=== PATIENT | male | born 1990 | race Caucasian/White ===

== ENCOUNTER 2022-04-18 15:59 | Emergency (ER) | payer OTHER ==
--- OUTSIDE RECORDS SUMMARY | 2022-04-18 16:04 | XMS REPORT | Continuity of Care Document ---
:1990 Author Organization [facility] t Address [address] [place] [address] Dr. T[address] [place] [address] Care Team Providers Name Role Phone Asked, No Pcp Primary Care Physician Unavailable LOURDES GREGORY Attending Clinician Unavailable HUNTER BARBOUR Attending Clinician Unavailable Joseph NUÑEZ, Duglas Walker Attending Clinician [phone] ADRI FONG Attending Clinician Unavailable JUVENAL DAILEY Attending Clinician Unavailable Koudela_A Attending Clinician Unavailable Ngsaryen_Tho Attending Clinician Unavailable CIARA ELIAS Admitting Clinician Unavailable MD DUGLAS RUIZ Admitting Clinician Miranda vailable Koudela_A Admitting Clinician Unavailable Nguyen_Tho Admitting Clinician Unavailable Payers Payer Name Policy Type Policy Number Effective Date Expiration Date S daryl [facility] [id number] 2020 00:00:00 [facility] [id number] 2020 GROUP (PPO) 00:00:00 [facility] [id number] Problems This patient has no known problems. Allergies, Adverse Reactions, Alerts This patient has no known allergies or adverse reactions. Social History Social Habit Start Date Stop Date Quantity Comments Source History of Chews Tobacco [facility] tobacco use Hospital Alcohol intake 2022-01-08 2022-01-08 Current drinker [facility] 00:00:00 00:00:00 of alcohol Hospital (finding) Tobacco use and 2019-10-23 2019-10-23 User of smokeless [facility] exposure 00:00:00 00:00:00 tobacco Hospital Alcohol Comment 2018-02-23 2018-02-23 Beer [facility] 00:00:00 00:00:00 Hospital Sex Ass[birth year] At [birth year] [facility] 00:00:00 00:00:00 Hospital Smoking Status Start Date Stop Date Source Light Tobacco Smoker Joel Martínez Smokes tobacco daily 2019-10-23 00:00:00 [facility] Medications Ordered Filled Start Stop Current Ordering Indication Dosage Frequency Signature Comments Components Source Medication Medication Date Date Medication? Clinician (SIG) Name Name venlafaxine No 75mg QD Take 1 Met hodi XR (Effexor 01-[address] XR) 75 MG 00:00: 04:59 (75 mg Hospi ta 24 hr 00 :00 total) by l capsule mouth daily for 30 days. gabapentin 400mg [id number] Take 1 Method[facility] (Neurontin) 01-[id number] 400 mg 00:00: 04:59 3D (400 mg Hospita capsule 00 :00 total) by l mouth 3 (three) times a day as needed (anxiety) for up to 30 days. QUEtiapine No 100mg QD Take 1 Met hodi (SEROqueL) 01-[address] 100 MG 00:00: 04:59 (100 mg Hospita tablet 00 :00 total) by l mouth nightly for 30 days. OLANZapine Yes 5mg QD Take 5 mg Me thodi (ZYPREXA) 5 12-[address] MG tablet 00:00: nightly. Hosp [facility] 00 l ibuprofen Yes 600mg Q6H Take 1 Metho di (ADVIL,MOTR 9-[address] IN) 600 MG 00:00: (600 mg Hosp [facility] tablet 00 total) by l mouth every 6 (six) hours as needed for mild pain for up to 20 doses. ibuprofen 2018-0 Yes 600mg Q6H Take 1 Meth[facility] di (ADVIL,MOTR 9-[address] [place]) 600 MG 00:00: (600 mg Hosp [facility] tablet 00 total) by l mouth every 6 (six) hours as needed for mild pain for up to 20 doses. tramadol 50 tramadol 50 No tramadol [place] mg tablet mg tablet 50 mg da tablet [facility] clonazepam clonazepam No clonazepam [place] 1 mg tablet 1 mg tablet 1 mg d a tablet [facility] losartan losartan No losartan [place] 100 mg 100 mg 100 mg da tablet tablet tablet [facility] losartan losartan No losartan [place] 100 100 100 da mg-hydrochl mg-hydrochl mg-hydroch Medical orothiazide orothiazide lorothiazi Group 25 mg 25 mg de 25 mg tablet tablet tablet Vital Signs Vital Name Observation Time Observation Value Comments Source BP Diastolic 2021-06-28 00:00:00 79 mm[Hg] [facility] BP Systolic 2021-06-28 00:00:00 137 mm[Hg] [facility] Body Weight 2021-06-28 00:00:00 3575 [oz_av] [facility] Respiratory rate 2022-01-08 15:59:24 18 /min [facility] Oxygen saturation in 2022-01-08 15:59:24 97 /min [facility] Arterial blood by Pulse oximetry Systolic blood 2022-01-08 15:59:24 105 mm[Hg] [facility] pressure Diastolic blood 2022-01-08 15:59:24 64 mm[Hg] [facility] pressure Heart rate 2022-01-08 15:59:24 82 /min [facility] Body temperature 2022-01-08 15:59:24 36.61 Yamilex [facility] Body height 2022-01-08 10:07:00 180.3 cm [facility] Body weight 2022-01-08 10:07:00 99.791 kg [facility] BMI 2022-01-08 10:07:00 30.68 kg/m2 [facility] Procedures Procedure Date / Time Performing Clinician Source Performed URINE DRUGS OF ABUSE 2022-01-08 14:57:00 Duglas Ruiz [facility] SCREEN [facility] COVID-19 QUALITATIVE 2022-01-08 13:36:00 Duglas Ruiz [facility] RT-PCR [facility] AMMONIA LEVEL 2022-01-08 12:20:00 [facility] HC COMPLETE BLD COUNT 2022-01-08 12:04:00 Duglas Ruiz [facility] W/AUTO DIFF [facility] PARTIAL THROMBOPLASTIN 2022-01-08 12:04:00 Duglas Ruiz [facility] TIME (PTT) [facility] PROTHROMBIN TIME WITH 2022-01-08 12:04:00 Duglas Ruiz [facility] INR [facility] COMPREHENSIVE METABOLIC 2022-01-08 12:04:00 Duglas Ruiz [facility] PANEL [facility] ALCOHOL LEVEL, BLOOD 2022-01-08 12:04:00 Duglas Ruiz [facility] ESTIMATED GFR 2022-01-08 12:04:00 [facility] ECG 12-LEAD 2022-01-08 11:59:53 [facility] POC GLUCOSE 2022-01-08 11:53:00 [facility] ECG ED PRELIMINARY 2022-01-08 11:29:43 Duglas Ruiz [facility] INTERPRETATION [facility] Plan of Care Planned Activity Planned Date Details Comments Source Future Scheduled 2022-03-27 Pneumococcal Vaccine: [facility] Test 16:00:51 Pediatrics (0 to 5 Years) and At-Risk Patients (6 to 64 Years) (1 - PCV) [code = Pneumococcal Vaccine: Pediatrics (0 to 5 Years) and At-Risk Patients (6 to 64 Years) (1 - PCV)] Future Scheduled 2022-03-27 Hepatitis C screening [facility] Test 16:00:51 (procedure) [code = 721938923] Future Scheduled 2022-03-27 COVID-19 VACCINE (2 - [facility] Test 16:00:51 Pfizer series) [code = COVID-19 VACCINE (2 - Pfizer series)] Future Scheduled 2022-03-27 INFLUENZA VACCINE [facility] Test 16:00:51 [code = INFLUENZA VACCINE] Diagnostic Test 2021-06-28 SARS CoV 2 RNA [facility] Pending 00:00:00 (COVID-19), QL, Group croze cutter helper-PCR, respiratory specimen [code = SARS CoV 2 RNA (COVID-19), QL, croze cutter helper-PCR, respiratory specimen] Future Scheduled COVID-19 VACCINE (1) Met [facility] Test [code = COVID-19 VACCINE (1)] Future Scheduled Hepatitis C screening [facility] Test (procedure) [code = 254484426] Future Scheduled INFLUENZA VACCINE [facility] Test [code = INFLUENZA VACCINE] Encounters Start End Encounter Admission Attending Care Care Encounter Source Date/Time Date/Time Type Type Clinicians Facility Department ID 2022-01-21 Inpatient [facility] [id number] [facility] 17:23:15 [id number] [place] 2021-12-04 Inpatient 1 COLT, [facility] [id number] H arris 06:54:00 [facility] 2021-12-03 Outpatient [facility] [id number] [place] 11:49:14 [id number] [facility] 2022-01-21 2022-01-21 Outpatient [facility] [id number] [place] 00:00:00 00:00:00 [facility] 2022-01-08 2022-01-08 Emergency Ruiz, 1.2.840.1 [id number] Methodi 05:41:00 13:53:00 Clif 73786.1.1 [facility] 3[facility]430[facility]7 [facility] a [facility] .[id number] l ai .8 2022-01-08 2022-01-08 Emergency RUIZ, [facility] [id number] [place] [address] 00:00:00 00:00:[address] CLIF [address] 2022-01-08 2022-01-08 Travel 1.2.840.1 [id number] Methodi 00:00:00 00:00:00 13943.1.1 350.1.13.43 859 3.430.2.7 0.2.7.3.698 Ho spita .3.887303 084.8 l .8 2021-12-25 2021-12-25 Outpatient [facility] [id number] [place] 15:35:29 16:13:31 [facility] 2021-12-04 2021-12-09 Inpatient [facility] [id number] [place] 06:54:00 15:22:00 [facility] 2021-12-02 2021-12-04 Emergency [facility] [id number] [place] 13:58:00 06:45:00 [facility] 2021-12-02 2021-12-02 Emergency 1 [facility] [id number] [place] 13:58:00 13:58:00 [facility] 2021-07-04 2021-07-04 Outpatient Koudela_A [facility] [id number] [place] 02:37:00 02:37:00 [facility] 2021-06-28 2021-06-28 Outpatient Koudela_A [facility] [id number] [place] 11:34:00 11:34:00 [facility] 2021-06-28 2021-06-28 Outpatient uyen_o [facility] [id number] [place] 09:22:00 09:22:00 [id number] [facility] 2021-06-28 2021-06-28 [facility] [place] - [id number] M [facility] 00:00:00 00:00:00 Discovery Alejandar da PA-C: [address] [facility] [address] [place] [address] , Ph. Results Test Description Test Time Test Comments Results Result Comments Source ECG 12 lead 2022-01-09 03:31:50 Test Item Value Reference Range Interpretation Comme nts Ventricular rate (test code = 253) Atrial rate (test code = 255) MD interval (test code = 266) QRSD interval (test code = 260) QT interval (test code = 264) QTC interval (test code = 265) P axis 1 (test code = 267) QRS axis 1 (test code = 268) T wave axis (test code = 270) EKG impression (test code = 273) Normal sinus rhythm-Normal ECG-In automated comparison with ECG of 23-APR-2018 01:52,-QT [facility] RNA [Presence] in Respiratory specimen by BJ with probe [id number] 13:38:07 Test Item Value Reference Range Interpretation Comments SARS-CoV-2 (COVID-19) RNA Not detected [Presence] in Respiratory specimen by BJ with probe detection (test code = 79518-9) Whether patient is employed in a Unknown healthcare setting (test code = 67195-0) Whether the patient has symptoms Unknown related to condition of interest (test code = 87734-0) Whether the patient was Unknown hospitalized for condition of interest (test code = 33681-6) Whether the patient was admitted Unknown to intensive care unit (ICU) for condition of interest (test code = 47767-2) Whether patient resides in a Unknown congregate care setting (test code = 57718-1) status (test code = Unknown 04940-2) Date and time of symptom onset Unknown (test code = 81771-2) POC [id number] 11:55:00 Test Item Value Reference Range Interpretation Comments POC glucose (test code 101 mg/dL 65-99 H [facility] Name: = 06548-8) Teodora salinas ID: [id number] able: HMW Notified corn cooker Interpretation Abnormal (test code = 93031-0) [id number] 09:26:36 Test Item Value Reference Range Interpretation Comments T pallidum Ab Ser Ql Aggl (test NEGATIVE Negative, Equivocal code = 15255-8) Reagin+T pallidum IgG+IgM NEGATIVE Negative SerPl-Imp (test code = 98042-4) HIV 1+2 Ab+HIV1 p24 Ag SerPl Ql [id number] 08:08:27 Test Item Value Reference Range Interpretation Comments HIV 1+2 Ab+HIV1 p24 Ag SerPl Ql [place] NEGATIVE Negative (test code = 13475-6) SARS-CoV-2 RNA Resp Ql [id number] 16:27:49 Test Item Value Reference Range Interpretation Comments Hospitalized? (test No code = 93898-8) ICU? (test code = No 16615-6) Symptomatic as defined No by CDC? (test code = 27372-9) Employed in Unknown Healthcare? (test code = 47101-2) Resident in a Unknown congregate care setting (including nursing homes, residential care for people with intellectual and developmental disabilities, psychiatric treatment facilities, group homes, board and care homes, homeless chcf, foster care or other): (test code = 01134-5) SARS-CoV-2 RNA Resp Ql NOT DETECTED Not Detected INTER PRETATION: No BJ+probe (test code = detec table levels 51318-7) of SARS-CoV-2 Coronavirus (COVID-19) were present in this patient's sampl e by this test. A no t detected result does not exclud e the possibility of active infectio n with this virus due to other factor s that may affect the results such as a poorly collecte d sample, viral titers below th e limit of detect ion of the assay, a nd the infrequent possibility of inhibitors in t he sample. This re sult should be interpreted in conjunction wit h clinical, radiographic, a nd other laborator y findings and sh ould not be used as the sole indicator of active infectio n with SARS-CoV-2 Coronavirus (COVID-19). COMMENT: This antonietta real-time reverse transcriptase polymerase chain reaction (RT-PCR) test rapidly detects SARS-CoV-2 (COVID-19) virus from nasopharyngeal and nasal swab specimens. In accordance with the FDA's guidance document "Policy for Diagnostic Tests for Coronavirus Disease-2019 during the Public Health Emergency", this test was developed, and its performance characteristics were verified by the [facility] molecular diagnostics laboratory and is authorized for clinical diagnostic use. This laboratory is certified under the Clinical Laboratory Improvement Amendments (CLIA) as qualified to perform high complexity clinical laboratory testing.HIV 1+2 Ab+HIV1 p24 Ag SerPl Ql [id number] 16:25:27 Test Item Value Reference Range Interpretation Comments HIV 1+2 Ab+HIV1 p24 Ag SerPl Ql [place] NEGATIVE Negative (test code = 85462-7)
[2022-04-18 16:55] LABS: Absolute Lymphocytes (CBC) 2.4 K/uL (0.7-4.9); Hematocrit 45.6 % (39.6-49.0); MCV 86.2 fL (80-100); MPV 7.5 fL (7.6-11.3); RBC Red Blood Cell Count 5.29 M/uL (4.33-5.43)
[2022-04-18 17:10] LABS: Troponin High Sensitivity 3.9 pg/mL (<58.9)
--- NOTE | 2022-04-18 17:23 | RAD REPORT ---
EXAM DESCRIPTION: RAD - Chest Single View - 04/18/2022 5:14 pm CLINICAL HISTORY: CHEST PAIN Chest pain. COMPARISON: <Comparisons> FINDINGS: Portable technique limits examination quality. The lungs are grossly clear. The heart is normal in size. No displaced fractures. IMPRESSION: No acute intrathoracic process suspected.
--- NOTE | 2022-04-18 17:48 | ER ---
Nurse's Notes [facility] Name: Johann Lopez Age: 31 yrs Sex: Male : 1990 Arrival Date: 04/18/2022 Time: 16:02 Bed 11 Private MD: Diagnosis: Chest pain, unspecified Presentation: 04/18 16:18 Chief complaint: Patient states: SOB \\T\\ Chest pain - 3 days. "At night when I wake up my iw chest gets tight.". Coronavirus screen: At this time, the client does not indicate any symptoms associated with coronavirus-19. Ebola Screen: No symptoms or risks identified at this time. Initial Sepsis Screen: Does the patient meet any 2 criteria? No. Patient's initial sepsis screen is negative. Does the patient have a suspected source of infection? No. Patient's initial sepsis screen is negative. Risk Assessment: Do you want to hurt yourself or someone else? Patient reports no desire to harm self or others. Onset of symptoms was April 18, 2022 at 16:19. 16:18 Method Of Arrival: Ambulatory iw 16:18 Acuity: NEW 3 iw Triage Assessment: 16:19 General: Appears in no apparent distress. comfortable, Behavior is cooperative, iw anxious. Pain: Complains of pain in chest Pain does not radiate. Pain currently is 7 out of 10 on a pain scale. Quality of pain is described as pressure, sharp, shooting, Pain began suddenly. EENT: No signs and/or symptoms were reported regarding the EENT system. Neuro: Level of Consciousness is awake, alert, obeys commands, Oriented to person, place, time, situation. Cardiovascular: Capillary refill < 3 seconds Patient's skin is warm and dry. Cardiovascular: Reports chest pain. Respiratory: Airway is patent Respiratory effort is even, unlabored. GI: Abdomen is round non-distended. : No signs and/or symptoms were reported regarding the genitourinary system. Derm: No signs and/or symptoms reported regarding the dermatologic system. Musculoskeletal: No signs and/or symptoms reported regarding the musculoskeletal system. Historical: - Allergies: 16:19 No Known Allergies; iw - Home Meds: 16:19 None [Active]; iw - PMHx: 16:19 None; iw - PSHx: 16:19 None; iw - Immunization history:: Adult Immunizations up to date, Client reports receiving the 1st dose of the Covid vaccine. - Social history:: Smoking status: Patient reports the use of cigarette tobacco products, smokes one-half pack cigarettes per day, Patient/guardian denies using alcohol. Screenin:50 Abuse screen: Denies threats or abuse. Denies injuries from another. Nutritional eh3 screening: No deficits noted. Tuberculosis screening: No symptoms or risk factors identified. Fall Risk None identified. Assessment: 17:50 General: Appears in no apparent distress. comfortable, Behavior is cooperative, eh3 appropriate for age, anxious. Pain: Complains of pain in anterior aspect of left shoulder Pain does not radiate. Pain currently is 3 out of 10 on a pain scale. Quality of pain is described as sharp, Pain began 2-3 days ago. Is intermittent, Alleviated by nothing. Neuro: Level of Consciousness is awake, alert, obeys commands, Oriented to person, place, time, situation. Cardiovascular: Capillary refill < 3 seconds Patient's skin is warm and dry. Respiratory: Airway is patent Respiratory effort is even, unlabored. Vital Signs: 16:18 BP 135 / 95; Pulse 91; Resp 18; Temp 98.6(O); Pulse Ox 96% on R/A; Weight 104.33 kg; iw Height 5 ft. 1 in. (154.94 cm); Pain 7/10; 17:50 BP 139 / 93; Pulse 84; Resp 16; Pulse Ox 99% on R/A; eh3 16:18 Body Mass Index 43.46 (104.33 kg, 154.94 cm) iw ED Course: 16:02 Patient arrived in ED. dt4 16:19 Triage completed. iw 16:19 Arm band placed on right wrist. iw 16:21 Beatris Mendez FNP-C is PHCP. kb 16:21 Roland Prescott MD is Attending Physician. kb 16:41 Initial lab(s) drawn, by me, sent to lab. Inserted saline lock: 20 gauge in right dh3 forearm, using aseptic technique. Blood collected. 17:42 Luanne Dubon, MISHA is Primary Nurse. eh3 17:50 Patient has correct armband on for positive identification. Bed in low position. Call 3 light in reach. Side rails up X2. Client placed on continuous cardiac and pulse oximetry monitoring. NIBP monitoring applied. 17:50 No provider procedures requiring assistance completed. Patient maintains SpO2 eh3 saturation greater than 95% on room air. 18:04 IV discontinued, intact, bleeding controlled, No redness/swelling at site. Pressure iw dressing applied. 18:19 RAD In Process Unspecified. EDMS Administered Medications: No medications were administered Medication: 17:50 VIS not applicable for this client. eh3 Outcome: 17:47 Discharge ordered by . tea 18:04 Discharged to home ambulatory. iw 18:04 Condition: good 18:04 Discharge instructions given to patient, Instructed on discharge instructions, follow up and referral plans. Demonstrated understanding of instructions, follow-up care. 18:04 Patient left the ED. iw Signatures: Dispatcher [employer] EDBeatris Gonzalez, WEATHER TEACHER-C WEATHER TEACHER-Nora Merrill, RN RN Tova Dias 3 Luanne Dubon RN RN 3 Abby Maldonado dt4 Corrections: (The following items were deleted from the chart) 17:51 17:49 BASIC METABOLIC PANEL+C.LAB.BRZ drawn and sent. eh3 EDMS 17:51 17:49 CBC+H.LAB.BRZ drawn and sent. eh3 EDMS
--- NOTE | 2022-04-18 17:48 | EDPHYS ---
Physician Documentation [facility] Name: Johann Lopez Age: 31 yrs Sex: Male : 1990 Arrival Date: 04/18/2022 Time: 16:02 Bed 11 Private MD: ED Physician Roland Prescott HPI: 04/18 17:44 This 31 yrs old Male presents to ER via Ambulatory with complaints of Chest Pain, kb Shortness Of Breath. 17:44 The patient or guardian reports chest pain that is located primarily in the anterior kb chest wall, left. The pain does not radiate. Associated signs and symptoms: Pertinent positives: shortness of breath, Pertinent negatives: abdominal pain, cough, diaphoresis, dizziness, headache, lower extremity pain, lower extremity swelling, lightheadedness, nausea, near syncope, palpitations, recent travel, syncope, vomiting. The chest pain is described as sharp. Duration: The patient or guardian reports multiple episodes, that are intermittent, with no pattern. Modifying factors: The symptoms are alleviated by nothing. the symptoms are aggravated by nothing. Severity of pain: At its worst the pain was moderate in the emergency department the pain has improved. The patient has not experienced similar symptoms in the past. The patient has not recently seen a physician. Pt reports intermittent chest pain for one week. States he gets some shortness of breath when pain is present. Pain has no pattern. No cardiac history. . Historical: - Allergies: 16:19 No Known Allergies; iw - Home Meds: 16:19 None [Active]; iw - PMHx: 16:19 None; iw - PSHx: 16:19 None; iw - Immunization history:: Adult Immunizations up to date, Client reports receiving the 1st dose of the Covid vaccine. - Social history:: Smoking status: Patient reports the use of cigarette tobacco products, smokes one-half pack cigarettes per day, Patient/guardian denies using alcohol. ROS: 17:44 Constitutional: Negative for fever, chills, and weight loss. kb 17:44 Cardiovascular: Positive for chest pain, Negative for edema, orthopnea, palpitations, paroxysmal nocturnal dyspnea. 17:44 Respiratory: Positive for shortness of breath, Negative for cough, dyspnea on exertion, hemoptysis, orthopnea, pleurisy, sputum production, wheezing. 17:44 All other systems are negative. Exam: 16:28 Constitutional: This is a well developed, well nourished patient who is awake, alert, kb and in no acute distress. Head/Face: Normocephalic, atraumatic. ENT: Moist Mucous membranes Cardiovascular: Regular rate and rhythm with a normal S1 and S2. No gallops, murmurs, or rubs. No pulse deficits. Respiratory: Respirations even and unlabored. No increased work of breathing. Talking in full sentences Abdomen/GI: Soft, non-tender. No distention Skin: Warm, dry with normal turgor. Normal color. MS/ Extremity: Pulses equal, no cyanosis. Neurovascular intact. Full, normal range of motion. Neuro: Awake and alert, GCS 15, oriented to person, place, time, and situation. Moves all extremities. Normal gait. Psych: Awake, alert, with orientation to person, place and time. Behavior, mood, and affect are within normal limits. 16:28 ECG was reviewed by the Attending Physician. Vital Signs: 16:18 BP 135 / 95; Pulse 91; Resp 18; Temp 98.6(O); Pulse Ox 96% on R/A; Weight 104.33 kg; iw Height 5 ft. 1 in. (154.94 cm); Pain 7/10; 17:50 BP 139 / 93; Pulse 84; Resp 16; Pulse Ox 99% on R/A; eh3 16:18 Body Mass Index 43.46 (104.33 kg, 154.94 cm) iw MDM: 16:21 Patient medically screened. kb 17:43 Data reviewed: vital signs, nurses notes. Data interpreted: Pulse oximetry: on room air kb is 96 %. Interpretation: normal. Counseling: I had a detailed discussion with the patient and/or guardian regarding: the historical points, exam findings, and any diagnostic results supporting the discharge/admit diagnosis, lab results, radiology results, the need for outpatient follow up, a family practitioner, to return to the emergency department if symptoms worsen or persist or if there are any questions or concerns that arise at home. ED course: HEART score 0. 04/18 16:27 Order name: D-Dimer kb 04/18 17:03 Order name: CBC with Automated Diff; Complete Time: 17:03 EDMS 04/18 17:10 Order name: Basic Metabolic Panel EDSC 04/18 16:21 Order name: XRAY Chest (1 view) 04/18 16:21 Order name: EKG; Complete Time: 16:22 04/18 16:21 Order name: Cardiac monitoring; Complete Time: 17:49 04/18 16:21 Order name: EKG - Nurse/Tech; Complete Time: 16:21 04/18 16:21 Order name: IV Saline Lock; Complete Time: 16:56 04/18 17:10 Order name: Troponin High Sensitivity [facility] 04/18 17:25 Order name: RAD [facility] 04/18 17:27 Order name: D-Dimer [facility] 04/18 16:21 Order name: Labs collected and sent; Complete Time: 16:56 04/18 16:21 Order name: O2 Per Protocol; Complete Time: 16:57 04/18 16:21 Order name: O2 Sat Monitoring; Complete Time: 16:57 iw EC:28 Rate is 82 beats/min. Rhythm is regular. QRS [place] is Normal. ND interval is normal at kb 150 msec. QRS interval is normal at 82 msec. QT interval is normal at 427 msec. Administered Medications: No medications were administered Disposition: 18:55 Co-signature as Attending Physician, Roland Prescott MD. rn Disposition Summary: 04/18/22 17:47 Discharge Ordered Location: Home kb Condition: Stable kb Diagnosis - Chest pain, unspecified kb Followup: kb - With: Emergency Department - When: As needed - Reason: Worsening of condition Followup: kb - With: Private Physician - When: 2 - 3 days - Reason: Recheck today's complaints, Continuance of care, Re-evaluation by your physician Discharge Instructions: - Discharge Summary Sheet kb - Nonspecific Chest Pain, Adult, Lhtv-iw-Xopd kb Forms: - Medication Reconciliation Form kb - Thank You Letter kb - Antibiotic Education kb - Prescription Opioid Use kb Signatures: Dispatcher [employer] [facility] Beatris Mendez, CLASSROOM MONITOR-C CLASSROOM MONITOR-Ckb Nora Brito, RN RN Roland Prescott MD MD state's attorney: (The following items were deleted from the chart) 17:51 16:22 BASIC METABOLIC PANEL+C.LAB.BRZ ordered. EDSC EDMS 17:51 16:22 CBC+H.LAB.BRZ ordered. EDSC EDMS 17:51 16:22 Troponin High Sensitivity+C.LAB.BRZ ordered. EDMS EDMS
[2022-04-20 07:19] VITALS: TEMP 98.6
[2022-04-20 07:21] VITALS: BP 139/93; O2SAT 99
--- NOTE | 2022-04-21 14:13 | EKG ---
Test Date: 2022-04-18 Test Time: 16:19:26 Technical Programs Manager: WESLEY MEASUREMENT RESULTS: Intervals: Rate: 82 NC: 150 QRSD: 82 QT: 366 QTc: 427 Avery: P: 61 NC: 150 QRS: 53 T: 34 INTERPRETIVE STATEMENTS: Normal sinus rhythm Normal ECG No previous ECG available for comparison Electronically Signed On 04-21-22 14:09:53 CDT by Felipe Gonzalez
== END 2022-04-18 18:04 | disposition home or self-care (01) ==
LOC: ER 15:59
DX: R07.89 Other chest pain (principal)
CPT/HCPCS: 36415; 71045; 80048; 84484; 85025; 85379; 93005; 99284

== ENCOUNTER 2022-05-13 23:54 | Emergency (ER) | payer OTHER, SELFPAY ==
--- OUTSIDE RECORDS SUMMARY | 2022-05-13 23:57 | XMS REPORT | Continuity of Care Document ---
:1990 Author Organization [facility] t Address [address] [place] [address] Care Team Providers Name Role Phone Asked, No Pcp Primary Care Physician Unavailable LOURDES GREGORY Attending Clinician Unavailable FANNIE LAKHANI Attending Clinician Unavailable HUNTER BARBOUR Attending Clinician Unavailable Joseph NUÑEZ, Duglas Walker Attending Clinician [phone] ADRI FONG Attending Clinician Unavailable JUVENAL DAILEY Attending Clinician Unavailable Koudela_A Attending Clinician Unavailable Nguyen_Tho Attending Clinician Unavailable CIARA ELIAS Admitting Clinician Unavailable MD DUGLAS RUIZ Admitting Clinician Miranda vailable Koudela_A Admitting Clinician Unavailable Nguyen_Tho Admitting Clinician Unavailable Payers Payer Name Policy Type Policy Number Effective Date Expiration Date S ource [facility] [id number] 2020 00:00:00 [facility] [id number] 2020 GROUP (PPO) 00:00:00 [facility] [id number] [facility] [id number] 2011 00:00:00 Problems This patient has no known problems. Allergies, Adverse Reactions, Alerts This patient has no known allergies or adverse reactions. Social History Social Habit Start Date Stop Date Quantity Comments Source History of Chews Tobacco Muslim tobacco use Hospital Alcohol intake 2022-01-08 2022-01-08 Current drinker [facility] 00:00:00 00:00:00 of alcohol Hospital (finding) Tobacco use and 2019-10-23 2019-10-23 User of smokeless [facility] exposure 00:00:00 00:00:00 tobacco Hospital Alcohol Comment 2018-02-23 2018-02-23 Beer Muslim 00:00:00 00:00:00 Hospital Sex Ass[birth year] At [birth year] Muslim 00:00:00 00:00:00 Hospital Smoking Status Start Date Stop Date Source Light Tobacco Smoker [facility] Smokes tobacco daily 2019-10-23 00:00:00 [facility] Medications Ordered Filled Start Stop Current Ordering Indication Dosage Frequency Signature Comments Components Source Medication Medication Date Date Medication? Clinician (SIG) Name Name venlafaxine No 75mg QD Take 1 [facility] XR (Effexor 01-[address] XR) 75 MG 00:00: 04:59 (75 mg Hospi ta 24 hr 00 :00 total) by l capsule mouth daily for 30 days. gabapentin No 400mg Q.[id number] Take 1 [facility] (Neurontin) 01-[id number] 400 mg 00:00: 04:59 3D (400 mg Hospita capsule 00 :00 total) by l mouth 3 (three) times a day as needed (anxiety) for up to 30 days. QUEtiapine No 100mg QD Take 1 [facility] (SEROqueL) 01-[address] 100 MG 00:00: 04:59 (100 mg Hospita tablet 00 :00 total) by l mouth nightly for 30 days. venlafaxine No 75mg QD Take 1 [facility] XR (Effexor 01-[address] XR) 75 MG 00:00: 04:59 (75 mg Hospi ta 24 hr 00 :00 total) by l capsule mouth daily for 30 days. gabapentin 2021- No 400mg Q.[id number] Take 1 [facility] (Neurontin) 01-[id number] 400 mg 00:00: 04:59 3D (400 mg Hospita capsule 00 :00 total) by l mouth 3 (three) times a day as needed (anxiety) for up to 30 days. QUEtiapine 2021- No 100mg QD Take 1 Met [facility] (SEROqueL) 01-[address] 100 MG 00:00: 04:59 (100 mg Hospita tablet 00 :00 total) by l mouth nightly for 30 days. OLANZapine Yes 5mg QD Take 5 mg [facility] (ZYPREXA) 5 6-[address] MG tablet 00:00: nightly. Hosp catracho 00 l OLANZapine 0 Yes 5mg QD Take 5 mg [facility] (ZYPREXA) 5 6-[address] MG tablet 00:00: nightly. Hosp catracho 00 l ibuprofen Yes 600mg Q6H Take 1 Metho di (ADVIL,MOTR 9-[address] IN) 600 MG 00:00: (600 mg Hosp catracho tablet 00 total) by l mouth every 6 (six) hours as needed for mild pain for up to 20 doses. ibuprofen Yes 600mg Q6H Take 1 [facility]o di (ADVIL,MOTR 9-[address] IN) 600 MG 00:00: (600 mg Hosp catracho tablet 00 total) by l mouth every 6 (six) hours as needed for mild pain for up to 20 doses. ibuprofen 0 Yes 600mg Q6H Take 1 Metho di [...] Source BP Diastolic 2021-06-28 00:00:00 79 mm[Hg] [facility] BP Systolic 2021-06-28 00:00:00 137 mm[Hg] [facility] Body Weight 2021-06-28 00:00:00 3575 [oz_av] [facility] Systolic blood 2022-01-08 15:59:24 105 mm[Hg] [facility] pressure Diastolic blood 2022-01-08 15:59:24 64 mm[Hg] [facility] pressure Heart rate 2022-01-08 15:59:24 82 /min [facility] Body temperature 2022-01-08 15:59:24 36.61 [facility] Respiratory rate 2022-01-08 15:59:24 18 /min [facility] Oxygen saturation in 2022-01-08 15:59:24 97 /min [facility] Arterial blood by Pulse oximetry Body height 2022-01-08 10:07:00 180.3 cm [facility] Body weight 2022-01-08 10:07:00 99.791 kg [facility] BMI 2022-01-08 10:07:00 30.68 kg/m2 [facility] Procedures Procedure Date / Time Performing Clinician Source Performed URINE DRUGS OF ABUSE 2022-01-08 14:57:00 Duglas Ruzi [facility] SCREEN [facility] COVID-19 QUALITATIVE 2022-01-08 13:36:00 Duglas Ruiz [facility] RT-PCR [facility] AMMONIA LEVEL 2022-01-08 12:20:00 Duglas Ruiz [facility] HC COMPLETE BLD COUNT 2022-01-08 12:04:00 Duglas Ruiz [facility] W/AUTO DIFF [facility] PARTIAL THROMBOPLASTIN 2022-01-08 12:04:00 Duglas Ruiz [facility] TIME (PTT) [facility] PROTHROMBIN TIME WITH 2022-01-08 12:04:00 Duglas Ruiz [facility] INR [facility] COMPREHENSIVE METABOLIC 2022-01-08 12:04:00 Duglas Ruiz [facility] PANEL [facility] ALCOHOL LEVEL, BLOOD 2022-01-08 12:04:00 Duglas Ruiz [facility] ESTIMATED GFR 2022-01-08 12:04:00 Duglas Ruiz [facility] ECG 12-LEAD 2022-01-08 11:59:53 Duglas Ruiz [facility] POC GLUCOSE 2022-01-08 11:53:00 Duglas Ruiz [facility] ECG ED PRELIMINARY 2022-01-08 11:29:43 Duglas Ruiz [facility] INTERPRETATION [facility] Plan of Care Planned Activity Planned Date Details Comments Source Future Scheduled 2022-03-27 Pneumococcal Vaccine: [facility] Test 16:00:51 Pediatrics (0 to 5 Years) and At-Risk Patients (6 to 64 Years) (1 - PCV) [code = Pneumococcal Vaccine: Pediatrics (0 to 5 Years) and At-Risk Patients (6 to 64 Years) (1 - PCV)] Future Scheduled 2022-03-27 Hepatitis C screening [facility] Test 16:00:51 (procedure) [code = 258683712] Future Scheduled 2022-03-27 COVID-19 VACCINE (2 - [facility] Test 16:00:51 Pfizer series) [code = COVID-19 VACCINE (2 - Pfizer series)] Future Scheduled 2022-03-27 INFLUENZA VACCINE [facility] Test 16:00:51 [code = INFLUENZA VACCINE] Future Scheduled 2022-03-27 Pneumococcal Vaccine: [facility] Test 16:00:51 Pediatrics (0 to 5 Years) and At-Risk Patients (6 to 64 Years) (1 - PCV) [code = Pneumococcal Vaccine: Pediatrics (0 to 5 Years) and At-Risk Patients (6 to 64 Years) (1 - PCV)] Future Scheduled 2022-03-27 Hepatitis C screening [facility] Test 16:00:51 (procedure) [code = 942226145] Future Scheduled 2022-03-27 COVID-19 VACCINE (2 - [facility] Test 16:00:51 Pfizer series) [code = COVID-19 VACCINE (2 - Pfizer series)] Future Scheduled 2022-03-27 INFLUENZA VACCINE [facility] Test 16:00:51 [code = INFLUENZA VACCINE] Diagnostic Test 2021-06-28 SARS CoV 2 [facility] Pending 00:00:00 (COVID-19), QL, Group health aid-PCR, respiratory specimen [code = SARS CoV 2 RNA (COVID-19), QL, health aid-PCR, respiratory specimen] Future Scheduled COVID-19 VACCINE (1) Met [facility] Test [code = COVID-19 VACCINE (1)] Future Scheduled Hepatitis C screening [facility] Test (procedure) [code = 066478377] Future Scheduled INFLUENZA VACCINE Method is Hospital Test [code = INFLUENZA VACCINE] Encounters Start End Encounter Admission Attending Care Care Encounter Source Date/Time Date/Time Type Type Clinicians Facility Department ID 2022-01-21 Inpatient [facility] [id number] [facility] 17:23:15 [id number] [place] 2021-12-04 Inpatient 1 COLT [facility] [id number] H arris 06:54:00 [facility] 2021-12-03 Outpatient [facility] [id number] [place] 11:49:14 [id number] [facility] 2022-04-21 2022-04-21 Outpatient KAR, [facility] [id number] [place] 09:54:46 23:59:00 [facility] 2022-04-18 2022-04-18 Outpatient Rubin [facility] [id number] [place] 15:46:00 15:46:00 Michelle [id number] Med ical 3 [place] 2022-01-21 2022-01-21 Outpatient [facility] [id number] [place] 00:00:00 00:00:00 [facility] 2022-01-08 2022-01-08 Emergency Ruiz, 1.2.840.1 [id number] [facility] 05:41:00 13:53:[address] 3.430.2.7 Hospit a Dasharathbh .3.074850 l ai .8 2022-01-08 2022-01-08 Emergency Ruiz, 1.2.840.1 [id number] [facility] 05:41:00 13:53:[address] 3.430.2.7 Hospit a Dasharathbh .3.029059 l ai .8 2022-01-08 2022-01-08 Travel 1.2.840.1 1.2.833.448 [id number] [facility] 00:00:00 00:00:[address] 3.430.2.7 0.2.7.3.698 Ho spita .3.902803 084.8 l .8 2022-01-08 2022-01-08 Travel 1.2.840.1 1.2.103.473 [id number] [facility] 00:00:00 00:00:[address] 3.430.2.7 0.2.7.3.698 Ho spita .3.220856 084.8 l .8 2021-12-25 2021-12-25 Outpatient [facility] [id number] [place] 15:35:29 16:13:31 [facility] 2021-12-04 2021-12-09 Inpatient [facility] [id number] [place] 06:54:00 15:22:00 [facility] 2021-12-02 2021-12-04 Emergency [facility] [id number] [place] 13:58:00 06:45:00 [facility] 2021-12-02 2021-12-02 Emergency 1 [facility] [id number] [place] 13:58:00 13:58:00 [facility] 2021-07-04 2021-07-04 Outpatient Koudela_A [facility] [id number] -[id number] [place] 02:37:00 02:37:00 1209 [facility] 2021-06-28 2021-06-28 Outpatient Koudela_A [facility] [id number] [place] 11:34:00 11:34:00 1203 da [facility] 2021-06-28 2021-06-28 Outpatient Radha SUTHERLAND [id number] [place] 09:22:00 09:22:00 [id number] da [facility] 2021-06-28 2021-06-28 Suly [facility] [place] - [id number] M at[place]or 00:00:00 00:00:00 Discovery Alejandra da PA-C: [address] [facility] [address] - [address], [facility] [place] [address] , Ph. 2011-09-26 2011-09-26 Emergency [facility] [id number] [place] 15:23:59 15:23:59 Health Results Test Description Test Time Test Comments Results Result Comments Source ECG 12 lead 2022-01-09 03:31:50 Test Item Value Reference Range Interpretation Comme nts Ventricular rate (test code = 253) Atrial rate (test code = 255) [place] interval (test code = 266) QRSD interval (test code = 260) QT interval (test code = 264) QTC interval (test code = 265) P axis 1 (test code = 267) QRS axis 1 (test code = 268) T wave axis (test code = 270) EKG impression (test code = 273) Normal sinus rhythm-Normal ECG-In automated comparison with ECG of 23-APR-2018 01:52,-QT has lengthened- [facility] [id number] 03:31:50 Test Item Value Reference Range Interpretation Comments Ventricular rate (test code = 253) Atrial rate (test code = 255) W[place] interval (test code = 266) QRSD interval (test code = 260) QT interval (test code = 264) QTC interval (test code = 265) P axis 1 (test code = 267) QRS axis 1 (test code = 268) T wave axis (test code = 270) EKG impression (test Normal sinus code = 273) rhythm-Normal ECG-In automated comparison with ECG of 23-APR-2018 01:52,-QT has lengthened-Electronica lly Signed By Mattie Hall MD ([id number]) on 01/08/2022 10:31:22 [facility] [Presence] in Respiratory specimen by BJ with probe [id number] 13:38:07 Test Item Value Reference Range Interpretation Comments SARS-CoV-2 (COVID-19) RNA Not detected [Presence] in Respiratory specimen by BJ with probe detection (test code = 69784-5) Whether patient is employed in a Unknown healthcare setting (test code = 63532-6) Whether the patient has symptoms Unknown related to condition of interest (test code = 58275-7) Whether the patient was Unknown hospitalized for condition of interest (test code = 80783-7) Whether the patient was admitted Unknown to intensive care unit (ICU) for condition of interest (test code = 56347-3) Whether patient resides in a Unknown congregate care setting (test code = 36678-0) status (test code = Unknown 96630-3) Date and time of symptom onset Unknown (test code = 67042-4) [facility] [id number] 11:55:00 Test Item Value Reference Range Interpretation Comments POC glucose (test code 101 mg/dL 65-99 H Opera tor Name: = 50343-1) Teodora salinas ID: [id number] able: HMW 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 garment 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 Interpretation Abnormal (test code = 50472-8) [facility] [id number] 11:55:00 Test Item Value Reference Range Interpretation Comments POC glucose (test code 101 mg/dL 65-99 H Opera tor Name: = 97077-2) Teodora salinas ID: [id number] able: HMW Notified garment 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 Interpretation Abnormal (test code = 27372-5) [facility] [id number] 09:26:36 Test Item Value Reference Range Interpretation Comments T pallidum Ab Ser Ql Aggl (test NEGATIVE Negative, Equivocal code = 05025-2) Reagin+T pallidum IgG+IgM NEGATIVE Negative SerPl-Imp (test code = 84787-5) HHSHIV 1+2 Ab+HIV1 p24 Ag SerPl Ql [id number] 08:08:27 Test Item Value Reference Range Interpretation Comments HIV 1+2 Ab+HIV1 p24 Ag SerPl Ql [place] NEGATIVE Negative (test code = 20301-8) [id number]-BpI-2 RNA Resp Ql [id number] 16:27:49 Test Item Value Reference Range Interpretation Comments Hospitalized? (test No code = 06135-4) ICU? (test code = No 08493-1) Symptomatic as defined No by CDC? (test code = 83914-0) Employed in Unknown Healthcare? (test code = 73433-8) Resident in a Unknown congregate care setting (including nursing homes, residential care for people with intellectual and developmental disabilities, psychiatric treatment facilities, group homes, board and care homes, homeless custodial, foster care or other): (test code = 04674-3) SARS-CoV-2 RNA Resp Ql NOT DETECTED Not Detected INTER PRETATION: No BJ+probe (test code = detec table levels 35325-4) of SARS-CoV-2 Coronavirus (COVID-19) were present in [...] its performance characteristics were verified by the [facility] [place] molecular diagnostics laboratory and is authorized for clinical diagnostic use. This laboratory is certified under the Clinical Laboratory Improvement Amendments (CLIA) as qualified to perform high complexity clinical laboratory testing.HHSHIV 1+2 Ab+HIV1 p24 Ag SerPl Ql [id number] 16:25:27 Test Item Value Reference Range Interpretation Comments HIV 1+2 Ab+HIV1 p24 Ag SerPl Ql [place] NEGATIVE Negative (test code = 85485-3) [facility]HS
[2022-05-14 00:58] LABS: Absolute Lymphocytes (CBC) 3.7 K/uL (0.7-4.9); Hematocrit 47.3 % (39.6-49.0); Lymphocytes % 35.4 % (15.3-44.8); MCV 89.9 fL (80-100); MPV 7.8 fL (7.6-11.3); RBC Red Blood Cell Count 5.27 M/uL (4.33-5.43)
[2022-05-14 01:17] LABS: Potassium 3.7 mmol/L (3.5-5.1); Troponin High Sensitivity 4.6 pg/mL (<58.9)
--- NOTE | 2022-05-14 01:44 | EDPHYS ---
Physician Documentation [facility] Name: Johann Lopez Age: 31 yrs Sex: Male : 1990 Arrival Date: 05/13/2022 Time: 23:59 Bed 15 Private MD: ED Physician Roland Prescott HPI: 05/14 00:13 This 31 yrs old Male presents to ER via Unassigned with complaints of High Blood rn Pressure, Chest Pain. 00:13 The patient or guardian reports chest pain that is located primarily in the chest rn diffusely. The pain does not radiate. Associated signs and symptoms: Pertinent positives: palpitations, shortness of breath, Pertinent negatives: abdominal pain, diaphoresis, syncope, vomiting. The chest pain is described as sharp, stabbing. Duration: The patient or guardian reports multiple episodes, that are intermittent. Modifying factors: The symptoms are alleviated by nothing. the symptoms are aggravated by emotionally stressful situations, anxiety and not sleeping. Severity of pain: At its worst the pain was mild in the emergency department the pain is unchanged. The patient has experienced similar episodes in the past. The patient has not recently seen a physician. Pt reports 2 weeks of intermittent chest pain, sob, worse at night, not sleeping well at night, having stress and anxiety. No fever. No abd pain. No vomiting. No hemoptysis. + smoker. . Historical: - Allergies: 00:18 No Known Allergies; aa9 - Home Meds: 00:18 None [Active]; aa9 - PMHx: 00:18 Hypertensive disorder; aa9 - PSHx: 00:18 None; aa9 - Immunization history:: Client reports receiving the 1st dose of the Covid vaccine. - Social history:: Smoking status: Patient reports the use of cigarette tobacco products, smokes one-half pack cigarettes per day. - Family history:: not pertinent. - Hospitalizations: : No recent hospitalization is reported. ROS: 00:13 Constitutional: Negative for fever, chills, and weight loss, Eyes: Negative for injury, rn pain, redness, and discharge, Neck: Negative for injury, pain, and swelling, Cardiovascular: Negative for edema Respiratory: Negative for cough, wheezing Abdomen/GI: Negative for abdominal pain, nausea, vomiting, diarrhea, and constipation, MS/Extremity: Negative for injury and deformity, Skin: Negative for injury, rash, and discoloration, Neuro: Negative for headache, weakness, numbness, tingling, and seizure. Exam: 00:13 Constitutional: This is a well developed, well nourished patient who is awake, alert, rn appears anxious Head/Face: Normocephalic, atraumatic. Eyes: Periorbital areas with no swelling, redness, or edema. Cardiovascular: Regular rate and rhythm. No pulse deficits. Respiratory: No increased work of breathing, no retractions or nasal flaring. Abdomen/GI: Soft, non-tender Skin: Warm, dry MS/ Extremity: Pulses equal, no cyanosis. Neuro: Awake and alert, GCS 15 00:17 ECG was reviewed by the Attending Physician. rn Vital Signs: 00:15 BP 122 / 73; Pulse 77; Resp 16 S; Pulse Ox 98% on R/A; aa9 00:17 BP 157 / 96; Pulse 90; Resp 17 S; Temp 98.8(O); Pulse Ox 99% on R/A; Weight 104.33 kg aa9 (R); Height 5 ft. 11 in. (180.34 cm) (R); Pain 0/10; 00:30 BP 122 / 76; Pulse 73; Resp 17 S; Pulse Ox 98% on R/A; aa9 00:45 BP 131 / 78; Pulse 80; Resp 16 S; Pulse Ox 98% on R/A; aa9 01:15 BP 119 / 67; Pulse 71; Resp 16 S; Pulse Ox 98% on R/A; aa9 01:45 BP 108 / 64; Pulse 69; Resp 16; Pulse Ox 99% on R/A; aa9 00:17 Body Mass Index 32.08 (104.33 kg, 180.34 cm) aa9 MDM: 00:00 Patient medically screened. rn 01:42 Differential diagnosis: acute pericarditis, anxiety, chest wall pain, costochondritis, rn esophagitis, gastritis, gastroesophageal reflux disease (GERD), pericarditis, pleurisy, pneumothorax, pulmonary embolus. Data reviewed: vital signs, nurses notes, lab test result(s), EKG, radiologic studies, plain films, and as a result, I will discharge patient. Counseling: I had a detailed discussion with the patient and/or guardian regarding: the historical points, exam findings, and any diagnostic results supporting the discharge/admit diagnosis, lab results, radiology results, the need for outpatient follow up, to return to the emergency department if symptoms worsen or persist or if there are any questions or concerns that arise at home. Response to treatment: the patient's symptoms have mildly improved after treatment, and as a result, I will discharge patient. Special discussion: I discussed with the patient/guardian in detail that at this point there is no indication for admission to the hospital. It is understood, however, that if the symptoms persist or worsen the patient needs to return immediately for re-evaluation. Based on the history and exam findings, there is no indication for further emergent testing or inpatient evaluation. I discussed with the patient/guardian the need to see the primary care provider for further evaluation of the symptoms. ED course: NO acute findings on cxr/ekg/bloodwork, stable vitals, no oxygen requirement, has appt with pcp in AM today, will dc home with return precautions. . 05/14 00:13 Order name: Basic Metabolic Panel; Complete Time: rn 05/14 00:13 Order name: CBC with Diff; Complete Time: rn 05/14 00:13 Order name: D-Dimer; Complete Time: rn 05/14 00:13 Order name: Troponin HS; Complete Time: rn 05/14 00:13 Order name: SARS-COV-2 RT PCR (Document "Date of Onset" if Symptomatic); Complete Time: rn 05/14 00:13 Order name: Flu; Complete Time: rn 05/14 00:13 Order name: XRAY Chest (1 view) rn 05/14 00:13 Order name: EKG; Complete Time: 00:14 rn 05/14 00:13 Order name: Cardiac monitoring; Complete Time: 00: rn 05/14 00:13 Order name: EKG - Nurse/Tech; Complete Time: 00: rn 05/14 00:13 Order name: IV Saline Lock; Complete Time: : rn 05/14 00:13 Order name: Labs collected and sent; Complete Time: 00: rn 05/14 00:13 Order name: O2 Per Protocol; Complete Time: 00: rn 05/14 00:13 Order name: O2 Sat Monitoring; Complete Time: 00: rn EC:17 Rate is 79 beats/min. Rhythm is regular. QRS [place] is Normal. TN interval is normal. QRS rn interval is normal. QT interval is normal. No Q waves. T waves are Normal. No ST changes noted. Clinical impression: Normal ECG. Interpreted by me. Reviewed by me. Administered Medications: No medications were administered Disposition Summary: 05/14/22 01:44 Discharge Ordered Location: Home rn Problem: an ongoing problem rn Symptoms: have improved rn Condition: Stable rn Diagnosis - Chest pain, unspecified rn Followup: rn - With: Private Physician - When: As needed - Reason: Recheck today's complaints, Re-evaluation by your physician Discharge Instructions: - Discharge Summary Sheet rn - Nonspecific Chest Pain, Adult rn - Pain Without a Known Cause rn Forms: - Medication Reconciliation Form rn - Thank You Letter rn - Antibiotic returning officer - Prescription Opioid Use rn Signatures: Dispatcher [employer] Roland Kirk MD MD rn Avalos, Aylin, RN RN aa9
--- NOTE | 2022-05-14 01:44 | ER ---
Nurse's Notes [facility] Name: Johann Lopez Age: 31 yrs Sex: Male : 1990 Arrival Date: 05/13/2022 Time: 23:59 Bed 15 Private MD: Diagnosis: Chest pain, unspecified Presentation: 05/14 00:17 Chief complaint: Patient states: for two weeks my chest feeling like its beating so aa9 fast, I have not been sleeping well for 3 days now. Coronavirus screen: Vaccine status: Patient reports receiving the 1st dose of the Covid vaccine. Ebola Screen: No symptoms or risks identified at this time. Initial Sepsis Screen: Does the patient meet any 2 criteria? No. Patient's initial sepsis screen is negative. Does the patient have a suspected source of infection? No. Patient's initial sepsis screen is negative. Risk Assessment: Do you want to hurt yourself or someone else? Patient reports no desire to harm self or others. Onset of symptoms was May 14, 2022. 00:17 Method Of Arrival: Ambulatory aa9 00:17 Acuity: NEW 3 aa9 Triage Assessment: 00:19 General: Appears uncomfortable, Behavior is cooperative, anxious. General: pt states," aa9 Its more of an uncomfortable feeling, like my heart is beating too fast." when asked about chest pain. Pain: Denies pain. Neuro: Level of Consciousness is awake, alert, obeys commands, Oriented to person, place, time, situation. Cardiovascular: Patient's skin is warm and dry. Rhythm is regular. Respiratory: Airway is patent Respiratory effort is even, unlabored. GI: Abdomen is round. Historical: - Allergies: 00:18 No Known Allergies; aa9 - Home Meds: 00:18 None [Active]; aa9 - PMHx: 00:18 Hypertensive disorder; aa9 - PSHx: 00:18 None; aa9 - Immunization history:: Client reports receiving the 1st dose of the Covid vaccine. - Social history:: Smoking status: Patient reports the use of cigarette tobacco products, smokes one-half pack cigarettes per day. - Family history:: not pertinent. - Hospitalizations: : No recent hospitalization is reported. Screenin:43 Abuse screen: Denies threats or abuse. Denies injuries from another. Nutritional aa9 screening: No deficits noted. Tuberculosis screening: No symptoms or risk factors identified. Fall Risk None identified. Assessment: 00:41 General: Appears comfortable, Behavior is calm, cooperative, anxious, pt educated on aa9 blood borne diseases, pt states to have used IV drugs again about three weeks ago once. Pt high cunningham's in bed. . Pain: Denies pain. Pain does not radiate. Pain began not applicable. Neuro: Level of Consciousness is awake, alert, obeys commands, Oriented to person, place, time, situation. Cardiovascular: Patient's skin is warm and dry. Respiratory: Airway is patent Respiratory effort is even, unlabored. Vital Signs: 00:15 BP 122 / 73; Pulse 77; Resp 16 S; Pulse Ox 98% on R/A; aa9 00:17 BP 157 / 96; Pulse 90; Resp 17 S; Temp 98.8(O); Pulse Ox 99% on R/A; Weight 104.33 kg aa9 (R); Height 5 ft. 11 in. (180.34 cm) (R); Pain 0/10; 00:30 BP 122 / 76; Pulse 73; Resp 17 S; Pulse Ox 98% on R/A; aa9 00:45 BP 131 / 78; Pulse 80; Resp 16 S; Pulse Ox 98% on R/A; aa9 01:15 BP 119 / 67; Pulse 71; Resp 16 S; Pulse Ox 98% on R/A; aa9 01:45 BP 108 / 64; Pulse 69; Resp 16; Pulse Ox 99% on R/A; aa9 00:17 Body Mass Index 32.08 (104.33 kg, 180.34 cm) aa9 ED Course: 05/13 23:59 Patient arrived in ED. ja2 23:59 Roland Prescott MD is Attending Physician. rn 05/14 00:03 Daphney Correa, MISHA is Primary Nurse. aa9 00:18 Triage completed. aa9 00:20 Arm band placed on. aa9 00:28 XRAY Chest (1 view) In Process Unspecified. EDMS 00:35 No provider procedures requiring assistance completed. Inserted saline lock: 20 gauge aa9 in right antecubital area, using aseptic technique. Blood collected. Patient maintains SpO2 saturation greater than 95% on room air. 00:41 Flu Sent. aa9 00:41 SARS-COV-2 RT PCR (Document "Date of Onset" if Symptomatic) Sent. aa9 00:41 Basic Metabolic Panel Sent. aa9 00:41 CBC with Diff Sent. aa9 00:41 D-Dimer Sent. aa9 00:41 Troponin HS Sent. aa9 00:44 Patient has correct armband on for positive identification. Placed in gown. Call light aa9 in reach. Side rails up X2. Client placed on continuous cardiac and pulse oximetry monitoring. NIBP monitoring applied. 02:01 IV discontinued, intact, bleeding controlled, No redness/swelling at site. Pressure aa9 dressing applied. Administered Medications: No medications were administered Medication: 00:44 VIS not applicable for this client. aa9 Outcome: :44 Discharge ordered by . rn 02:01 Discharged to home ambulatory. aa9 02:01 Condition: stable 02:01 Discharge instructions given to patient, Instructed on discharge instructions, follow up and referral plans. Demonstrated understanding of instructions, follow-up care. 02:01 Patient left the ED. aa9 Signatures: Dispatcher [employer] EDRoland Madrid MD MD rn Alexander, Jessica ja2 Avalos, Aylin, RN RN aa9
[2022-05-14 02:25] VITALS: TEMP 98.8
[2022-05-14 02:30] VITALS: BP 108/64; O2SAT 99
--- NOTE | 2022-05-14 11:08 | RAD REPORT ---
EXAM DESCRIPTION: RAD - Chest Single View - 05/14/2022 12:26 am CLINICAL HISTORY: The patient is 31 years old and is Male; Chest pain TECHNIQUE: Frontal view of the chest. COMPARISON: No relevant prior studies available. FINDINGS: Lungs: Unremarkable. No consolidation. Pleural space: Unremarkable. No pneumothorax. Heart: Unremarkable. Mediastinum: Unremarkable. Bones/joints: Unremarkable. IMPRESSION: No acute findings in the chest. Electronically signed by: Chavez Palmer MD 05/14/2022 12:35 AM CDT Due to temporary technical issues with the PACS/Fluency reporting system, reports are being signed by the in house radiologists without review as a courtesy to insure prompt reporting. The interpreting radiologist is fully responsible for the content of the report.
--- NOTE | 2022-05-14 16:33 | EKG ---
Test Date: 2022-05-14 Test Time: 00:18:21 Healthcare Receptionist: NISHANT MEASUREMENT RESULTS: Intervals: Rate: 79 MN: 120 QRSD: 96 QT: 382 QTc: 438 [place]: P: 34 MN: 120 QRS: 6 T: 26 INTERPRETIVE STATEMENTS: Normal sinus rhythm Normal ECG Compared to ECG 04/18/2022 16:19:26 No significant changes Electronically Signed On 05-14-22 16:32:44 CDT by Felipe Gonzalez
== END 2022-05-14 02:01 | disposition home or self-care (01) ==
LOC: ER 23:54
DX: R07.9 Chest pain, unspecified (principal); I10 Essential (primary) hypertension; F17.210 Nicotine dependence, cigarettes, uncomplicated; Z20.822 Contact with and (suspected) exposure to COVID-19
CPT/HCPCS: 36415; 71045; 80048; 84484; 85025; 85379; 87804; 93005; 99284; U0003

== ENCOUNTER 2022-05-15 19:17 | Emergency (ER) | payer SELFPAY ==
--- OUTSIDE RECORDS SUMMARY | 2022-05-15 19:23 | XMS REPORT | Continuity of Care Document ---
:1990 Author Organization [facility] t Address [address] [place] [address] Care Team Providers Name Role Phone Asked, No Pcp Primary Care Physician Unavailable LOURDES GREGORY Attending Clinician Unavailable FANNIE LAKHANI Attending Clinician Unavailable HUNTER BARBOUR Attending Clinician Unavailable Joseph NUÑEZ, Duglas Walker Attending Clinician [phone] ADRI FONG Attending Clinician Unavailable JUVENAL DAILEY Attending Clinician Unavailable Koudela_A Attending Clinician Unavailable Nguyen_Tho Attending Clinician Unavailable CIARA ELIAS Admitting Clinician Unavailable MD DUGLAS RUIZ Admitting Clinician Miranda vailable Koudela_A Admitting Clinician Unavailable Nguyen_Tho Admitting Clinician Unavailable Payers Payer Name Policy Type Policy Number Effective Date Expiration Date S ource [facility] [id number] 2020 00:00:00 [facility] [id number] 2020 GROUP (PPO) 00:00:00 [facility] [id number] [facility] [id number] 2011 00:00:00 Problems This patient has no known problems. Allergies, Adverse Reactions, Alerts This patient has no known allergies or adverse reactions. Social History Social Habit Start Date Stop Date Quantity Comments Source History of Chews [facility] Alcohol intake 2022-01-08 2022-01-08 Current drinker [facility] 00:00:00 00:00:00 of alcohol Hospital (finding) Tobacco use and 2019-10-23 2019-10-23 User of smokeless [facility] exposure 00:00:00 00:00:00 tobacco Hospital Alcohol Comment 2018-02-23 2018-02-23 Beer [facility] 00[facility]00 [facility] Sex Assigned At [birth year] [facility] Smoking Status Start Date Stop Date Source Light Tobacco Smoker [facility] Sm[facility] tobacco daily 2019-10-23 00:00:00 [facility] Medications Ordered Filled Start Stop Current Ordering Indication Dosage Frequency Signature Comments Components Source Medication Medication Date Date Medication? Clinician (SIG) Name Name venlafaxine No 75mg QD Take 1 [facility] XR (Effexor 01-[address] XR) 75 MG 00:00: 04:59 (75 mg Hospi ta 24 hr 00 :00 total) by l capsule mouth daily for 30 days. gabapentin No 400mg Q.[id number] Take 1 [facility] (Neurontin) 01-[id number] 400 mg 00:00: 04:59 3D [...] capsule mouth daily for 30 days. gabapentin 2021-0 2021- No 400mg Q.[id number] Take 1 [facility] (Neurontin) 01-[id number] 400 mg 00:00: 04:59 3D (400 mg Hospita capsule 00 :00 total) by l mouth 3 (three) times a day as needed (anxiety) for up to 30 days. QUEtiapine 2021-0 2021- No 100mg QD Take 1 [facility] (SEROqueL) 01-[address] 100 MG 00:00: 04:59 (100 mg Hospita tablet 00 :00 total) by l mouth nightly for 30 days. venlafaxine 2021-0 2021- No 75mg QD Take 1 [facility] XR (Effexor 01-[address] XR) 75 MG 00:00: 04:59 (75 mg Hospi ta 24 hr 00 :00 total) by l capsule mouth daily for 30 days. gabapentin 2021-0 2021- No 400mg Q.[id number] Take 1 [facility] (Neurontin) 01-[id number] 400 mg 00:00: 04:59 3D (400 mg Hospita capsule 00 :00 total) by l mouth 3 (three) times a day as needed (anxiety) for up to 30 days. QUEtiapine 2021-0 2021- No 100mg QD Take 1 [facility] (SEROqueL) 01-[address] 100 MG 00:00: 04:59 (100 mg Hospita tablet 00 :00 total) by l mouth nightly for 30 days. OLANZapine 2-0 Yes 5mg QD Take 5 mg [facility] (ZYPREXA) 5 6-[address] MG tablet 00:00: nightly. [facility]osp cat[facility] 00 l OLANZapine 2022-0 Yes 5mg QD Take 5 mg [facility] (ZYPREXA) 5 6-[address] [facility] tablet 00:00: nightly. [facility] 00 l OLANZapine 2-0 Yes 5mg QD Take 5 mg [facility] (ZYPREXA) 5 6-[address] MG tablet 00:00: nightly. [facility]osp [facility] 00 l ibuprofen 2018-0 Yes 600mg Q6H Take 1 [...] Source BP Diastolic 2021-06-28 00:00:00 79 mm[Hg] [facility] BP Systolic 2021-06-28 00:00:00 137 mm[Hg] [facility] Body Weight 2021-06-28 00:00:00 3575 [oz_av] [facility] Systolic blood 2022-01-08 15:59:24 105 mm[Hg] [facility] pressure Diastolic blood 2022-01-08 15:59:24 64 mm[Hg] [facility] pressure Heart rate 2022-01-08 15:59:24 82 /min [facility] Body temperature 2022-01-08 15:59:24 36.61 Yamilex [facility] Respiratory rate 2022-01-08 15:59:24 18 /min [facility] Oxygen saturation in 2022-01-08 15:59:24 97 /min [facility] Arterial blood by Pulse oximetry Body height 2022-01-08 10:07:00 180.3 cm [facility] Body weight 2022-01-08 10:07:00 99.791 kg [facility] BMI 2022-01-08 10:07:00 30.68 kg/m2 [facility] Procedures Procedure Date / Time Performing Clinician Source Performed URINE DRUGS OF ABUSE 2022-01-08 14:57:00 Duglas Ruiz [facility] SCREEN [facility] COVID-19 QUALITATIVE 2022-01-08 13:36:00 Duglas Ruiz [facility] RT-PCR [facility] AMMONIA LEVEL 2022-01-08 12:20:00 Duglas Ruiz [facility] HC COMPLETE BLD COUNT 2022-01-08 12:04:[address] [facility] W/AUTO DIFF [facility] PARTIAL THROMBOPLASTIN 2022-01-08 12:04:00 Duglas Ruiz [facility] TIME (PTT) [facility] PROTHROMBIN TIME WITH 2022-01-08 12:04:[address] [facility] INR [facility] COMPREHENSIVE METABOLIC 2022-01-08 12:04:00 Duglas Ruiz [facility] PANEL [facility] ALCOHOL LEVEL, BLOOD 2022-01-08 12:04:00 Duglas Ruiz [facility] ESTIMATED GFR 2022-01-08 12:04:00 Duglas Ruiz [facility] ECG 12-LEAD 2022-01-08 11:59:53 Duglas Ruiz [facility] POC GLUCOSE 2022-01-08 11:53:00 Duglas Ruiz [facility] ECG ED PRELIMINARY 2022-01-08 11:29:43 Duglas Ruiz [facility] INTERPRETATION [facility] Plan of Care Planned Activity Planned Date Details Comments Source Future Scheduled 2022-03-27 INFLUENZA VACCINE Method [facility] Test 16:00:51 [code = INFLUENZA VACCINE] Future Scheduled 2022-03-27 Pneumococcal Vaccine: [facility] Test 16:00:51 Pediatrics (0 to 5 Years) and At-Risk Patients (6 to 64 Years) (1 - PCV) [code = Pneumococcal Vaccine: Pediatrics (0 to 5 Years) and At-Risk Patients (6 to 64 Years) (1 - PCV)] Future Scheduled 2022-03-[address] [facility] Test 16:00:51 (procedure) [code = 174755828] Future Scheduled 2022-03-27 COVID-19 VACCINE (2 - [facility] Test 16:00:51 Pfizer series) [code = COVID-19 VACCINE (2 - Pfizer series)] Future Scheduled 2022-03-27 INFLUENZA VACCINE Method [facility] Test 16:00:51 [code = INFLUENZA VACCINE] Future Scheduled 2022-03-27 Pneumococcal Vaccine: [facility] Test 16:00:51 Pediatrics (0 to 5 Years) and At-Risk Patients (6 to 64 Years) (1 - PCV) [code = Pneumococcal Vaccine: Pediatrics (0 to 5 Years) and At-Risk Patients (6 to 64 Years) (1 - PCV)] Future Scheduled 2022-03-[address] [facility] Test 16:00:51 (procedure) [code = 366421722] Future Scheduled 2022-03-27 COVID-19 VACCINE (2 - [facility] Test 16:00:51 Pfizer series) [code = COVID-19 VACCINE (2 - Pfizer series)] Future Scheduled 2022-03-27 INFLUENZA VACCINE Method [facility] Test 16:00:51 [code = INFLUENZA VACCINE] Future Scheduled 2022-03-27 Pneumococcal Vaccine: [facility] Test 16:00:51 Pediatrics (0 to 5 Years) and At-Risk Patients (6 to 64 Years) (1 - PCV) [code = Pneumococcal Vaccine: Pediatrics (0 to 5 Years) and At-Risk Patients (6 to 64 Years) (1 - PCV)] Future Scheduled 2022-03-[address] [facility] Test 16:00:51 (procedure) [code = 331815870] Future Scheduled 2022-03-27 COVID-19 VACCINE (2 - [facility] Test 16:00:51 Pfizer series) [code = COVID-19 VACCINE (2 - Pfizer series)] Diagnostic Test 2021-06-28 SARS CoV 2 RNA [facility] Pending 00:00:00 (COVID-19), QL, Group table cut off saw operator-PCR, respiratory specimen [code = SARS CoV 2 RNA (COVID-19), QL, table cut off saw operator-PCR, respiratory specimen] Future Scheduled COVID-19 VACCINE (1) [facility] Test [code = COVID-19 VACCINE (1)] Future Scheduled Hepatitis C screening [facility] Test (procedure) [code = 052988890] Future Scheduled INFLUENZA VACCINE [facility] Test [code = INFLUENZA VACCINE] Encounters Start End Encounter Admission Attending Care Care Encounter Source Date/Time Date/Time Type Type Clinicians Facility Department ID 2022-01-21 Inpatient [facility] [id number] [facility] 17:23:15 [id number] [place] 2021-12-04 Inpatient 1 COLT, [facility] [id number] H arris 06:54:00 [facility] 2021-12-03 Outpatient [facility] [id number] [place] 11:49:14 [id number] [facility] 2022-04-21 2022-04-21 Outpatient KAR, [facility] [id number] [place] 09:54:46 23:59:00 [facility] 2022-04-18 2022-04-18 Outpatient Rubin [facility] [id number] [place] 15:46:00 15:46:00 Michelle [id number] Med ical 3 [place] 2022-01-21 2022-01-21 [facility] [id number] [place] 00:00:00 00:00:00 [facility] 2022-01-08 2022-01-08 Emergency Ruiz, 1.2.840.1 [id number] [facility] 05:41:00 13:53:[address] 3.430.2.7 Hospit a Dasharathbh .3.085337 l ai .8 2022-01-08 2022-01-08 Emergency Ruiz, 1.2.840.1 [id number] [facility] 05:41:00 13:53:[address] 3.430.2.7 Hospit a Dasharathbh .3.849029 l ai .8 2022-01-08 2022-01-08 Travel 1.2.840.1 [id number] [id number] [facility] 00:00:00 00:00:[address] 3.430.2.7 0.2.7.3.698 Ho spita .3.819012 084.8 l .8 2022-01-08 2022-01-08 Travel 1.2.840.1 1.2.318.784 [id number] [facility] 00:00:00 00:00:[address] 3.430.2.7 0.2.7.3.698 Ho spita .3.776460 084.8 l .8 2021-12-25 2021-12-25 Outpatient [facility] [id number] [place] 15:35:29 16:13:31 Pending sale to [facility] 2021-12-04 2021-12-09 Inpatient [facility] [id number] [place] 06:54:00 15:22:00 [facility] 2021-12-02 2021-12-04 Emergency [facility] [id number] [place] 13:58:00 06:45:00 [facility] 2021-12-02 2021-12-02 Emergency 1 [facility] [id number] [place] 13:58:00 13:58:00 [facility] 2021-07-04 2021-07-04 Outpatient Koudela_A [facility] [id number] [place] 02:37:00 02:37:00 [facility] 2021-06-28 2021-06-28 Outpatient Koudela_A [facility] [id number] [place] 11:34:00 11:34:00 1203 [facility] 2021-06-28 2021-06-28 Outpatient Radha S[place]HERLAND [id number] [place] 09:22:00 09:22:00 [id number] [facility] 2021-06-28 2021-06-28 Suly [facility] [place] - [id number] [place] 00:00:00 00:00:00 Discovery Alejandra da PA-C: [address] [facility] [address] - [address], [facility], [place] [address] , Ph. 2011-09-26 2011-09-26 Emergency [facility] [id number] [place] 15:23:59 15:23:59 Health Results Test Description Test Time Test Comments Results Result Comments Source ECG 12 lead 2022-01-09 03:31:50 Test Item Value Reference Range Interpretation Comme nts Ventricular rate (test code = 253) Atrial rate (test code = 255) CO interval (test code = 266) QRSD interval (test code = 260) QT interval (test code = 264) QTC interval (test code = 265) P axis 1 (test code = 267) QRS axis 1 (test code = 268) T wave axis (test code = 270) EKG impression (test code = 273) Normal sinus rhythm-Normal ECG-In automated comparison with ECG of 23-APR-2018 01:52,-QT [facility] leng[facility] [id number] 03:31:50 Test Item Value Reference Range Interpretation Comments Ventricular rate (test code = 253) Atrial rate (test code = 255) CO interval (test code = 266) QRSD interval [...] Hall MD (1015) on 01/08/2022 10:31:22 PM [facility] 12 [id number] 03:31:50 Test Item Value Reference Range Interpretation Comments Ventricular rate (test code = 253) Atrial rate (test code = 255) CO interval (test code = 266) QRSD interval [...] Hall MD (1015) on 01/08/2022 10:31:[address] [facility] [Presence] in Respiratory specimen by BJ with probe [id number] 13:38:07 Test Item Value Reference Range Interpretation Comments SARS-CoV-2 (COVID-19) RNA Not detected [Presence] in Respiratory specimen by BJ with probe detection (test code = 79832-9) Whether patient is employed in a Unknown healthcare setting (test code = 43482-7) Whether the patient has symptoms Unknown related to condition of interest (test code = 90090-2) Whether the patient was Unknown hospitalized for condition of interest (test code = 30382-3) Whether the patient was admitted Unknown to intensive care unit (ICU) for condition of interest (test code = 85852-9) Whether patient resides in a Unknown congregate care setting (test code = 23668-6) status (test code = Unknown 73098-1) Date and time of symptom onset Unknown (test code = 32924-3) [facility] [id number] 11:55:00 Test Item Value Reference Range Interpretation Comments POC glucose (test code 101 mg/dL 65-99 H Opera tor Name: = 38638-7) Teodora Macie salinas ID: [id number] able: HMW Notified piano accompanist Interpretation Abnormal (test code = 89470-9) [facility] [id number] 11:55:00 Test Item Value Reference Range Interpretation Comments POC glucose (test code 101 mg/dL 65-99 H Opera tor Name: = 16967-2) Teodora salinas ID: [id number] able: HMW Notified piano accompanist Interpretation Abnormal (test code = 31577-4) [facility] [id number] 11:55:00 Test Item Value Reference Range Interpretation Comments POC glucose (test code 101 mg/dL 65-99 H Opera tor Name: = 68046-4) Teodora salinas ID: [id number] able: HMW Notified piano accompanist Interpretation Abnormal (test code = 64851-3) [facility] [id number] 09:26:36 Test Item Value Reference Range Interpretation Comments T pallidum Ab Ser Ql Aggl (test NEGATIVE Negative, Equivocal code = 65948-2) Reagin+T pallidum IgG+IgM NEGATIVE Negative SerPl-Imp (test code = 75571-7) HHSHIV 1+2 Ab+HIV1 p24 Ag SerPl Ql [id number] 08:08:27 Test Item Value Reference Range Interpretation Comments HIV 1+2 Ab+HIV1 p24 Ag SerPl Ql [place] NEGATIVE Negative (test code = 99247-3) [id number] RNA Resp Ql [id number] 16:27:49 Test Item Value Reference Range Interpretation Comments Hospitalized? (test No code = 50151-2) ICU? (test code = No 03465-9) Symptomatic as defined No by CDC? (test code = 76447-0) Employed in Unknown Healthcare? (test code = 39697-0) Resident in a Unknown congregate care setting (including nursing homes, residential care for people with intellectual and developmental disabilities, psychiatric treatment facilities, group homes, board and care homes, homeless correction, foster care or other): (test code = 85111-5) SARS-CoV-2 RNA Resp Ql NOT DETECTED Not Detected INTER PRETATION: No BJ+probe (test code = detec table levels 11974-5) of SARS-CoV-2 Coronavirus (COVID-19) were present in [...] its performance characteristics were verified by the [facility] molecular diagnostics laboratory and is authorized for clinical diagnostic use. This laboratory is certified under the Clinical Laboratory Improvement Amendments (CLIA) as qualified to perform high complexity clinical laboratory testing.HHSHIV 1+2 Ab+HIV1 p24 Ag SerPl Ql [id number] 16:25:27 Test Item Value Reference Range Interpretation Comments HIV 1+2 Ab+HIV1 p24 Ag SerPl Ql [place] NEGATIVE Negative (test code = 45502-4) HHS
--- NOTE | 2022-05-15 20:32 | RAD REPORT ---
EXAM DESCRIPTION: CT - Head Brain Wo Cont - 05/15/2022 8:25 pm CLINICAL HISTORY: Alteration of awareness/confusion COMPARISON: None TECHNIQUE: Computed axial tomography of the head was obtained. IV contrast was not requested. All CT scans are performed using dose optimization technique as appropriate and may include automated exposure control or mA/KV adjustment according to patient size. FINDINGS: An intracranial bleed is not seen . The ventricles are normal in caliber. No extra-axial fluid collection is noted. No significant hypodensity within the brain Fluid within the sinuses/ mastoids is not seen. IMPRESSION: No acute intracranial abnormality is seen. If patient's symptoms persist MRI of the bra in would be recommended.
[2022-05-15 20:35] LABS: Absolute Lymphocytes (CBC) 1.8 K/uL (0.7-4.9); Lymphocytes % 13.2 % (15.3-44.8); MCV 89.6 fL (80-100); MPV 7.9 fL (7.6-11.3); RBC Red Blood Cell Count 5.14 M/uL (4.33-5.43)
[2022-05-15 20:36] LABS: Albumin 4.7 g/dL (3.4-5.0); BUN Blood Urea Nitrogen 12 mg/dL (7-18); Bicarbonate 24 mmol/L (21-32); Glucose Level 106 mg/dL (74-106); Potassium 3.9 mmol/L (3.5-5.1); Sodium Level 136 mmol/L (136-145)
[2022-05-15 20:39] LABS: Protime INR 1.05
[2022-05-15 20:50] LABS: ALT/SGPT 146 U/L (12-78); AST/SGOT 31 U/L (15-37); Alkaline Phosphatase 118 U/L (45-117); Bilirubin Direct 0.2 mg/dL (0-0.2); Bilirubin Total 0.8 mg/dL (0.2-1.0); Glomerular Filtration Rate 96 ml/min (=/>90); Protein, Total 8.7 g/dL (6.4-8.2)
[2022-05-15] MEDS ORDERED: NA CHLORIDE 0.9% 1,000 ML ONE ×2 (21:07→23:09)
[2022-05-16 00:02] LABS: Urine Blood Negative (Negative); Urine Glucose Negative (Negative); Urine Protein 2+ (Negative); Urine Specific Gravity >=1.030 (1.005-1.030)
[2022-05-16 00:42] LABS: Barbiturates NEGATIVE (NEGATIVE); Benzodiazepines NEGATIVE (NEGATIVE); Cocaine NEGATIVE (NEGATIVE); METHAMPHETAM NEGATIVE (NEGATIVE); Methadone NEGATIVE (NEGATIVE); Opiates NEGATIVE (NEGATIVE); Phencyclidine NEGATIVE (NEGATIVE); THC Cannibis NEGATIVE (NEGATIVE)
[2022-05-16 00:50] LABS: Urine Bacteria <20 /HPF (<20); Urine Mucus 4+ /HPF (None Seen); Urine RBC <5 /HPF (None Seen)
--- NOTE | 2022-05-16 01:12 | EDPHYS ---
Physician Documentation [facility] Name: Johann Lopez Age: 31 yrs Sex: Male : 1990 Arrival Date: 05/15/2022 Time: 19:23 Bed 20 Private MD: ED Physician Nikki Barajas HPI: 05/15 19:45 This 31 yrs old Male presents to ER via EMS with complaints of Altered Mental Status. cp 19:45 The patient presents with confusion. cp 19:45 Onset: The symptoms/episode began/occurred today. cp 19:45 Possible causes: drug use. Associated signs and symptoms: Pertinent negatives: cp abdominal pain, agitation, chest pain, diarrhea, headache. 19:45 EMS reports patient reportedly asked bystander in [facility] for help. cp 19:45 Unable to obtain HPI due to altered mental status. cp 05/16 02:25 Patient reports recently stopping use of IV meth 3 weeks ago and quitting smoking cp cigarettes today. Historical: - Allergies: 05/15 19:25 No Known Allergies; bb - PMHx: 05/16 02:22 Hypertensive disorder; IV Drug abuse; kl - Immunization history:: unknown. - Social history:: Smoking status: unknown. ROS: 05/15 19:50 Constitutional: Negative for fever. cp 19:50 Cardiovascular: Negative for chest pain. cp 19:50 Abdomen/GI: Negative for abdominal pain, vomiting, diarrhea, constipation. 19:50 Neuro: Positive for altered mental status. 19:50 Unable to obtain ROS due to altered mental status. Exam: 19:55 Constitutional: The patient appears in no acute distress, alert, awake, cp non-diaphoretic, non-toxic, well developed, well nourished. 19:55 Head/Face: Normocephalic, atraumatic. cp 19:55 Eyes: Periorbital structures: appear normal, Pupils: dilated, bilaterally, Extraocular movements: intact throughout, Conjunctiva: normal, no exudate, no injection, Sclera: no appreciated abnormality, Lids and lashes: appear normal, bilaterally. 19:55 ENT: External ear(s): are unremarkable, Nose: is normal, Mouth: Lips: moist, Oral mucosa: pink and intact, moist, Posterior pharynx: is normal, airway is patent, no erythema, no exudate. 19:55 Neck: ROM/movement: is normal, is supple, without pain, no range of motions limitations. 19:55 Chest/axilla: Inspection: normal, Palpation: is normal, no crepitus, no tenderness. 19:55 Cardiovascular: Rate: tachycardic, Rhythm: regular, Edema: is not appreciated, JVD: is not appreciated. 19:55 Respiratory: the patient does not display signs of respiratory distress, Respirations: normal, no use of accessory muscles, no retractions, labored breathing, is not present, Breath sounds: are clear throughout, no decreased breath sounds, no stridor, no wheezing. 19:55 Abdomen/GI: Inspection: abdomen appears normal, Palpation: abdomen is soft and non-tender, in all quadrants. 19:55 Back: pain, is absent, ROM is normal. 19:55 Neuro: Orientation: to person, Mentation: slow to respond, confused, Motor: moves all fours, strength is normal. 21:27 ECG was reviewed by the Attending Physician. cp Vital Signs: 19:23 BP 144 / 93; Pulse 107; Resp 16 S; Pulse Ox 94% on R/A; bb 20:14 BP 164 / 70; Pulse 87; Resp 18; Pulse Ox 96% on R/A; eh3 21:15 BP 169 / 77; Pulse 92; Resp 18; Pulse Ox 95% on R/A; eh3 22:15 BP 166 / 69; Pulse 91; Resp 16; Pulse Ox 98% on R/A; eh3 23:15 BP 168 / 75; Pulse 89; Resp 16; Pulse Ox 98% on R/A; eh3 05/16 02:46 BP 163 / 89; Pulse 78; Resp 16; Pulse Ox 96% on R/A; kl 05:16 BP 158 / 92; Pulse 88; Resp 16; Pulse Ox 99% on R/A; kl MDM: 05/15 19:31 Patient medically screened. cp 20:00 Differential Diagnosis: CVA, electrolyte abnormality, alcohol intoxication, cp intracranial bleed, meningitis, seizure, sepsis, volume depletion. 05/16 01:00 Data reviewed: vital signs, nurses notes, lab test result(s), EKG, radiologic studies, cp CT scan. 02:30 ED course: VSS. Patient now answering questions appropriately and reveals that he has cp been under increased stress, unemployed, recently quit using IV dugs and quit smoking today. Patient reports he takes Wellbutrin and Zoloft medications. No recent changes in meds. Will discharge to home for continued monitoring. 05/15 19:34 Order name: Acetaminophen; Complete Time: 20:54 cp 05/15 19:34 Order name: Basic Metabolic Panel; Complete Time: 20:54 cp 05/16 00:41 Interpretation: Reviewed. cp 05/15 19:34 Order name: CBC with Diff; Complete Time: 20:54 cp 05/15 20:54 Interpretation: Normal except: WBC 13.40; ISHA% 77.5; LYM% 13.2; NEUT A 10.3. cp 05/15 19:34 Order name: ETOH Level; Complete Time: 20:54 cp 05/15 19:34 Order name: Hepatic Function; Complete Time: 20:54 cp 05/16 00:41 Interpretation: Normal except: ALT 146; ALK 118; TP 8.7; GLOB 4.0. cp 05/15 19:34 Order name: PT-INR; Complete Time: 20:54 cp 05/15 19:34 Order name: Ptt, Activated; Complete Time: 20:54 cp 05/15 19:34 Order name: Salicylate; Complete Time: 21:28 cp 05/15 19:34 Order name: Urine Drug Screen; Complete Time: 00:47 cp 05/16 00:47 Interpretation: Reviewed. cp 05/15 19:34 Order name: CT Head Brain wo Cont; Complete Time: 20:54 cp 05/15 21:28 Order name: Urine Microscopic Only; Complete Time: 00:56 cp 05/16 00:57 Interpretation: Normal except: MUCUS 4+; HYAL 5-10. cp 05/16 00:03 Order name: Urine Dipstick-Ancillary; Complete Time: 00:41 EDMS 05/16 00:41 Interpretation: Normal except: UKET 2+; UPROT 2+. cp 05/16 01:16 Order name: AMMONIA; Complete Time: 02:54 sb4 05/16 01:24 Order name: SARS-COV-2 Antigen Rapid; Complete Time: 02:54 wm 05/15 19:34 Order name: EKG; Complete Time: 19:35 cp 05/15 19:34 Order name: EKG - Nurse/Tech; Complete Time: 21:23 cp 05/15 19:34 Order name: IV Saline Lock; Complete Time: 21:02 cp 05/15 19:34 Order name: Labs collected and sent; Complete Time: 21:02 cp 05/15 19:34 Order name: Suicide Screening ([place]); Complete Time: 21:27 cp 05/15 19:34 Order name: Urine Dipstick-Ancillary (obtain specimen); Complete Time: 23:59 cp 05/16 01:16 Order name: CT Abd/Pelvis - IV Contrast Only sb4 EC/20 21: Rate is 101 beats/min. Rhythm is regular. MA interval is normal. QRS interval is cp normal. QT interval is normal. T waves are Inverted in lead aVL. Interpreted by me. Reviewed by me. Administered Medications: 21:20 Drug: NS 0.9% 1000 ml Route: IV; Rate: 1 bolus; Site: left antecubital; eh3 22:15 Follow up: IV Status: Completed infusion; IV Intake: 1000ml 3 23:30 Drug: NS 0.9% 1000 ml Route: IV; Rate: 1 bolus; Site: left antecubital; eh3 Disposition Summary: 05/16/22 02:33 Discharge Ordered Location: Home(05/16/22 02:33) cp Problem: new(05/16/22 02:33) cp Symptoms: have improved(05/16/22 02:33) cp Condition: Stable(05/16/22 02:33) cp Diagnosis - Hypertensive heart disease without heart failure cp - Acute stress reaction cp Followup: cp - With: Private Physician - When: 1 - 2 days - Reason: Recheck today's complaints Discharge Instructions: - Discharge Summary Sheet cp - Hypertension, Adult cp - Stress, Adult cp - Aspirin and Your Heart cp - How to Take Your Blood Pressure cp Forms: - Medication Reconciliation Form cp - Thank You Letter cp - Antibiotic Education cp - Prescription Opioid Use cp Signatures: Dispatcher [employer] EDCoretta Burns RN Malathi Oliveira RN RN bb Page, Corey, PA PA cp Hall, Erin, RN RN 3 Madhuri Tenorio PA-C PAMateusz sb4 Corrections: (The following items were deleted from the chart) 05/16 01:12 Observation cp cp : 01:12 Madhuri Tenorio cp cp : 01:12 Telemetry/MedSurg (observation) cp cp 01:12 Stable cp cp 01:12 new cp cp 01:12 have improved cp cp 01:12 Standard cp cp 01:12 cp cp 01:12 Altered mental status, unspecified cp cp
--- NOTE | 2022-05-16 01:12 | ER ---
Nurse's Notes [facility] Name: Johann Lopez Age: 31 yrs Sex: Male : 1990 Arrival Date: 05/15/2022 Time: 19:23 Bed 20 Private MD: Diagnosis: Hypertensive heart disease without heart failure;Acute stress reaction Presentation: 05/15 19:23 Chief complaint: EMS states: pt was at [employer] and walked "up to the desk" stating "I bb need help". Coronavirus screen: At this time, the client does not indicate any symptoms associated with coronavirus-19. Ebola Screen: No symptoms or risks identified at this time. Initial Sepsis Screen: Does the patient meet any 2 criteria? No. Patient's initial sepsis screen is negative. Does the patient have a suspected source of infection? No. Patient's initial sepsis screen is negative. Risk Assessment: Do you want to hurt yourself or someone else? Patient reports no desire to harm self or others. Onset of symptoms is unknown. 19:23 Method Of Arrival: EMS: [facility] bb 19:23 Acuity: NEW 2 bb 05/16 02:40 Note pt reports was having anxiety and walked to store recent loss of income reports kl good family support talks daily with family members and they are helping him find a job. Historical: - Allergies: 05/15 19:25 No Known Allergies; bb - PMHx: 05/16 02:22 Hypertensive disorder; IV Drug abuse; kl - Immunization history:: unknown. - Social history:: Smoking status: unknown. Screenin/20 20:14 Abuse screen: Denies threats or abuse. Denies injuries from another. Nutritional eh3 screening: No deficits noted. Tuberculosis screening: No symptoms or risk factors identified. Fall Risk None identified. Assessment: 20:14 General: Appears unkempt, Behavior is flat. Pain: Denies pain. Neuro: Level of eh3 Consciousness is awake, alert, obeys commands, Oriented to person, place, time, situation. Cardiovascular: Capillary refill < 3 seconds Patient's skin is warm and dry. Respiratory: Airway is patent Respiratory effort is even, unlabored. GI: Abdomen is round non-distended. Musculoskeletal: Circulation, motion, and sensation intact. Range of motion: intact in all extremities. 20:14 Neuro: Gait is steady, Speech very slow, only answers one or two questions then stops eh3 responding. Pupils are Pupil Size: 6mm dilated. 20:14 General: Pt given urinal, he states he will provide a urine sample. eh3 21:15 Reassessment: Patient and/or family updated on plan of care and expected duration. Pain eh3 level reassessed. Patient is alert, oriented x 3, equal unlabored respirations, skin warm/dry/pink. Advised pt we need a urine sample GENOVEVA, he states he can provide one soon. 22:15 Reassessment: Patient and/or family updated on plan of care and expected duration. Pain eh3 level reassessed. Patient is alert, oriented x 3, equal unlabored respirations, skin warm/dry/pink. 23:15 Reassessment: Patient and/or family updated on plan of care and expected duration. Pain eh3 level reassessed. Patient is alert, oriented x 3, equal unlabored respirations, skin warm/dry/pink. 05/16 02:20 General: Appears in no apparent distress. comfortable, Behavior is calm, cooperative, kl flat. Pain: Denies pain. Neuro: No deficits noted. Level of Consciousness is awake, alert, obeys commands, Oriented to person, place, time, situation, Gait is steady, Speech is normal, Pupils are PERRLA, Pupil Size: 4. Cardiovascular: No deficits noted. Respiratory: No deficits noted. Derm: track escalera noted to bilateral upper arms pt reports last used x 3 weeks prior Methamphetamine drug of choice. 05:15 Reassessment: Patient appears in no apparent distress at this time. Patient states kl feeling better. Patient states symptoms have improved. pt alert oriented ambulatory gait steady bus ticket provided . Vital Signs: 05/15 19:23 BP 144 / 93; Pulse 107; Resp 16 S; Pulse Ox 94% on R/A; bb 20:14 BP 164 / 70; Pulse 87; Resp 18; Pulse Ox 96% on R/A; eh3 21:15 BP 169 / 77; Pulse 92; Resp 18; Pulse Ox 95% on R/A; eh3 22:15 BP 166 / 69; Pulse 91; Resp 16; Pulse Ox 98% on R/A; eh3 23:15 BP 168 / 75; Pulse 89; Resp 16; Pulse Ox 98% on R/A; eh3 1021 02:46 BP 163 / 89; Pulse 78; Resp 16; Pulse Ox 96% on R/A; kl 05:16 BP 158 / 92; Pulse 88; Resp 16; Pulse Ox 99% on R/A; kl ED Course: 05/15 19:23 Patient arrived in ED. bb 19:24 Darren Zavala PA is PHCP. cp 19:24 Nikki Barajas MD is Attending Physician. cp 19:25 Triage completed. bb 19:25 Arm band placed on Patient placed in an exam room, on a stretcher, on pulse oximetry. bb 20:14 Patient has correct armband on for positive identification. Bed in low position. Call eh3 light in reach. Side rails up X2. Client placed on continuous cardiac and pulse oximetry monitoring. NIBP monitoring applied. Door closed. Noise minimized. Lights dimmed. 20:23 Trang Castillo RN is Primary Nurse. [facility] 20:27 CT Head Brain wo Cont In Process Unspecified. EDMS 05/16 00:00 Urine collected: clean catch specimen, paul colored. attempted to straight cath pt bb unable to tolerate. Collected clean catch urine. 01:12 Madhuri Tenorio PA-C is Hospitalizing Provider. cp 01:41 CT Abd/Pelvis - IV Contrast Only In Process Unspecified. EDMS 02:22 No provider procedures requiring assistance completed. Patient admitted, IV remains in kl place. 03:47 No apparent distress. Appears to be sleeping. kl 04:16 No apparent distress. Appears to be sleeping. kl 05:15 IV discontinued, intact, bleeding controlled, No redness/swelling at site. Pressure kl dressing applied. Administered Medications: 05/15 21:20 Drug: NS 0.9% 1000 ml Route: IV; Rate: 1 bolus; Site: left antecubital; eh3 22:15 Follow up: IV Status: Completed infusion; IV Intake: 1000ml eh3 23:30 Drug: NS 0.9% 1000 ml Route: IV; Rate: 1 bolus; Site: left antecubital; eh3 Medication: 05/16 02:23 VIS not applicable for this client. kl Intake: 05/15 22:15 IV: 1000ml; Total: 1000ml. eh3 Outcome: 05/16 01:12 Decision to Hospitalize by Provider. cp 02:21 Admitted to ER Hold. Please see [facility] for further documentation. 02:21 Condition: stable 02:21 Instructed on the need for admit. 02:33 Discharge ordered by . cp 05:16 Discharged to home ambulatory. kl 05:16 Condition: improved 05:16 Discharge instructions given to patient, Instructed on discharge instructions, follow up and referral plans. Demonstrated understanding of instructions, follow-up care. 05:16 Patient left the ED. kl Signatures: Dispatcher [employer] EDCoretta Burns RN RN kl Ballard, Brenda RN RN Darren Soto PA PA cp Rees, Jessica, RN RN [id number] Luanne Dubon RN RN 3 Corrections: (The following items were deleted from the chart) 05/15 21:53 21:50 General: Appears unkempt, Behavior is flat, 3 eh3 21:53 21:50 Pain: Denies pain. eh3 eh3 21:53 21:50 Neuro: Level of Consciousness is awake, alert, obeys commands, Oriented to eh3 person, place, time, situation, 3 21:53 21:50 Cardiovascular: Capillary refill < 3 seconds Patient's skin is warm and dry. eh3 eh3 21:53 21:50 Respiratory: Airway is patent Respiratory effort is even, unlabored, eh3 eh3 21:53 21:50 GI: Abdomen is round non-distended, eh3 eh3 21:53 21:50 Musculoskeletal: Circulation, motion, and sensation intact. Range of motion: eh3 intact in all extremities, eh3 22:07 21:15 Reassessment: Patient and/or family updated on plan of care and expected eh3 duration. Pain level reassessed. Patient is alert, oriented x 3, equal unlabored respirations, skin warm/dry/pink. eh3 22:08 20:14 Musculoskeletal: Circulation, motion, and sensation intact. Range of motion: eh3 intact in all extremities, eh3
[2022-05-16 02:52] LABS: SARS-CoV-2 Antigen Rapid Res Negative (Negative)
[2022-05-16 05:35] VITALS: BP 158/92; O2SAT 99
--- NOTE | 2022-05-16 11:41 | RAD REPORT ---
EXAM DESCRIPTION: CT Abdomen and Pelvis With Intravenous Contrast CLINICAL HISTORY: The patient is 31 years old and is Male; Elevated Liver enzymes TECHNIQUE: Axial computed tomography images of the abdomen and pelvis with intravenous contrast. S agittal and coronal reformatted images were created and reviewed. This CT exam was performed using one or more of the following dose reduction techniques: automated exposure control, adjustment of t he mA and/or kV according to patient size, and/or use of iterative reconstruction technique. COMPARISON: No relevant prior studies available. FINDINGS: Lung bases: Unremarkable. No mass. No consolidation. ABDOMEN: Liver: Unremarkable. No mass. Gallbladder and bile ducts: Unremarkable. No calcified stones. No ductal dilation. Pancreas: Unremarkable. No mass. No ductal dilation. Spleen: Unremarkable. No splenomegaly. Adrenals: Unremarkable. No mass. Kidneys and ureters: Unremarkable. No solid mass. No hydronephrosis. Stomach and bowel: Unremarkable. No obstruction. No mucosal thickening. PELVIS: Appendix: No findings to suggest acute appendicitis. Bladder: Unremarkable. Reproductive: Unremarkable as visualized. ABDOMEN and PELVIS: Intraperitoneal space: Unremarkable. No free air. No significant fluid collection. Bones/joints: No acute fracture. No dislocation. Soft tissues: Unremarkable. Vasculature: Unremarkable. No abdominal aortic aneurysm. Lymph nodes: Unremarkable. No enlarged lymph nodes. IMPRESSION: No acute finding in the abdomen/pelvis. Electronically signed by: Chavez Palmer MD 05/16/2022 2:32 AM CDT Due to temporary technical issues with the PACS/Fluency reporting system, reports are being signed by the in house radiologists without review as a courtesy to insure prompt reporting. The interpreting radiologist is fully responsible for the content of the report.
--- NOTE | 2022-05-17 16:55 | EKG ---
Test Date: 2022-05-15 Test Time: 21:24:34 Composite Laminator: DEZ MEASUREMENT RESULTS: Intervals: Rate: 101 LA: 128 QRSD: 86 QT: 342 QTc: 443 [place]: P: 64 LA: 128 QRS: 17 T: 106 INTERPRETIVE STATEMENTS: Sinus tachycardia ST & T wave abnormality, consider lateral ischemia Abnormal ECG Compared to ECG 05/14/2022 00:18:21 ST (T wave) deviation now present Possible ischemia now present Sinus rhythm no longer present Electronically Signed On 05-17-22 16:53:53 CDT by Felipe Gonzalez
== END 2022-05-16 05:16 | disposition home or self-care (01) ==
LOC: ER 19:17
DX: F43.0 Acute stress reaction (principal); I11.9 Hypertensive heart disease without heart failure; Z20.822 Contact with and (suspected) exposure to COVID-19
CPT/HCPCS: 36415; 70450; 74177; 80048; 80076; 80307; 80320; 80329; 81003; 81015; 82140; 85025; 85610; 85730; 87811; 93005; 96360; 99285; J7030; Q9967

== ENCOUNTER 2022-07-09 18:18 | Emergency (ER) | payer OTHER, SELFPAY ==
--- OUTSIDE RECORDS SUMMARY | 2022-07-09 18:21 | XMS REPORT | Continuity of Care Document ---
:1990 Author Organization [facility] t Address [address] [place] [address] Care Team Providers Name Role Phone Asked, No Pcp Primary Care Physician Unavailable LOURDES GREGORY Attending Clinician Unavailable FANNIE LAKHANI Attending Clinician Unavailable HUNTER BARBOUR Attending Clinician Unavailable Joseph NUÑEZ, Duglas Walker Attending Clinician [phone] ADRI FONG Attending Clinician Unavailable JUVENAL DAILEY Attending Clinician Unavailable Koudela_A Attending Clinician Unavailable Nguyen_Tho Attending Clinician Unavailable CIARA ELIAS Admitting Clinician Unavailable MD DUGLAS RUIZ Admitting Clinician Miranda vailable Koudela_A Admitting Clinician Unavailable Nguyen_Tho Admitting Clinician Unavailable Payers Payer Name Policy Type Policy Number Effective Date Expiration Date S ource [facility] [id number] 2020 00:00:00 [facility] [id number] 2020 GROUP (PPO) 00:00:00 [facility] [id number] [facility] [id number] 2011 00:00:00 Problems This patient has no known problems. Allergies, Adverse Reactions, Alerts This patient has no known allergies or adverse reactions. Social History Social Habit Start Date Stop Date Quantity Comments Source History of Chews Tobacco [facility] use [facility] Alcohol intake 2022-01-08 2022-01-08 Current drinker [facility] 00:00:00 00:00:00 of alcohol Hospital (finding) Tobacco use and 2019-10-23 2019-10-23 User of smokeless [facility] exposure 00:00:00 00:00:00 tobacco [facility] Alcohol Comment 2018-02-23 2018-02-23 Beer [facility] 00:00:00 00:00:00 Hospital Sex Assigned At [birth year] [facility] 00:00:00 00:00:00 Hospital Smoking Status Start Date Stop Date Source Light Tobacco Smoker [facility] Smokes tobacco daily 2019-10-23 00:00:00 [facility] Medications Ordered Filled Start Stop Current Ordering Indication Dosage Frequency Signature Comments Components Source Medication Medication Date Date Medication? Clinician (SIG) Name Name venlafaxine 2021- No 75mg QD Take 1 [facility] XR (Effexor 01-[address] XR) 75 MG 00:00: 04:59 (75 mg Hospi ta 24 hr 00 :00 total) by l capsule mouth daily for 30 days. gabapentin No 400mg Q.[id number] Take 1 [facility] (Neurontin) 01-[id number] 400 mg 00:00: 04:59 3D (400 mg Hospita capsule 00 :00 total) by l mouth 3 (three) times a day as needed (anxiety) for up to 30 days. QUEtiapine 2021- No 100mg QD Take 1 [facility] (SEROqueL) 01-[address] 100 MG 00:00: 04:59 (100 mg Hospita tablet 00 :00 total) by l mouth nightly for 30 days. venlafaxine 2021- No 75mg QD Take 1 [facility] XR (Effexor 01-[address] XR) 75 MG 00:00: 04:59 (75 mg Hospi ta 24 hr 00 :00 total) by l capsule mouth daily for 30 days. gabapentin 2021-2021- No 400mg Q.[id number] Take 1 [facility] (Neurontin) 01-[id number] 400 mg 00:00: 04:59 3D (400 mg Hospita capsule 00 :00 total) by l mouth 3 (three) times a day as needed (anxiety) for up to 30 days. QUEtiapine 2021-2021- No 100mg QD Take 1 Met [facility] (SEROqueL) 01-[address] 100 MG 00:00: 04:59 (100 mg Hospita tablet 00 :00 total) by l mouth nightly for 30 days. venlafaxine 2021-2021- No 75mg QD Take 1 [facility] XR (Effexor 01-[address] XR) 75 MG 00:00: 04:59 (75 mg Hospi ta 24 hr 00 :00 total) by l capsule mouth daily for 30 days. gabapentin 2021-2021- No 400mg Q.[id number] Take 1 [facility] (Neurontin) 01-[id number] 400 mg 00:00: 04:59 3D (400 mg Hospita capsule 00 :00 total) by l mouth 3 (three) times a day as needed (anxiety) for up to 30 days. QUEtiapine 2021-2021- No 100mg QD Take 1 Met [facility] (SEROqueL) 01-[address] 100 MG 00:00: 04:59 (100 mg Hospita tablet 00 :00 total) by l mouth nightly for 30 days. venlafaxine 2021-2021- No 75mg QD Take 1 [facility] XR (Effexor 01-[address] XR) 75 MG 00:00: 04:59 (75 mg Hospi ta 24 hr 00 :00 total) by l capsule mouth daily for 30 days. gabapentin 2021-0 2021- No 400mg Q.[id number] Take 1 [facility] (Neurontin) 01-[id number] 400 mg 00:00: 04:59 3D (400 mg Hospita capsule 00 :00 total) by l mouth 3 (three) times a day as needed (anxiety) for up to 30 days. QUEtiapine 202-0 2022- No 100mg QD Take 1 [facility] (SEROqueL) 6-15 07-[address] 100 MG 00:00: 04:59 (100 mg Hospita tablet 00 :00 total) by l mouth nightly for 30 days. OLANZapine 2021-0 Yes 5mg QD Take 5 mg Me [facility] (ZYPREXA) 5 6-[address] MG tablet 00:00: nightly. Hosp cat[facility]acho 00 l OLANZapine 2022-0 Yes 5mg QD Take 5 mg [facility] (ZYPREXA) 5 6-[address] MG tablet 00:00: nightly. Hosp cat[facility] 00 l OLANZapine 2021-0 Yes 5mg QD Take 5 mg Me [facility] (ZYPREXA) 5 6-[address] MG tablet 00:00: nightly. [facility]osp [facility] 00 l OLANZapine 2-0 Yes 5mg QD Take 5 mg Me [facility] (ZYPREXA) 5 6-[address] MG tablet 00:00: nightly. Hosp cat[facility]acho 00 l ibuprofen 2017-0 Yes 600mg Q6H Take 1 Metho di [...] Source BP Diastolic 2021-06-28 00:00:00 79 mm[Hg] [facility] BP Systolic 2021-06-28 00:00:00 137 mm[Hg] [facility] Body Weight 2021-06-28 00:00:00 3575 [oz_av] [facility] Systolic blood 2022-01-08 15:59:24 105 mm[Hg] Method [facility] pressure Diastolic blood 2022-01-08 15:59:24 64 mm[Hg] [facility] [place] [place] pressure Heart rate 2022-01-08 15:59:24 82 /min [facility] Body temperature 2022-01-08 15:59:24 36.61 Yamile[facility] Respiratory rate 2022-01-08 15:59:24 18 /min [facility] Oxygen saturation in 2022-01-08 15:59:24 97 /min [facility] Arterial blood by Pulse oximetry Body height 2022-01-08 10:07:00 180.3 cm [facility] Body weight 2022-01-08 10:07:00 99.791 kg [facility] BMI 2022-01-08 10:07:00 30.68 kg/m2 [facility] Procedures Procedure Date / Time Performing Clinician Source Performed URINE DRUGS OF ABUSE 2022-01-08 14:57:[address] [facility] SCREEN [facility] COVID-19 QUALITATIVE 2022-01-08 13:36:00 Duglas Ruiz [facility] RT-PCR [facility] AMMONIA LEVEL 2022-01-08 12:20:00 Duglas Ruiz [facility] HC COMPLETE BLD COUNT 2022-01-08 12:04:00 Duglas Ruiz [facility] W/AUTO DIFF [facility] PARTIAL THROMBOPLASTIN 2022-01-08 12:04:00 RuizDuglas veras [facility] TIME (PTT) [facility] PROTHROMBIN TIME WITH 2022-01-08 12:04:00 Duglas Ruiz [facility] INR [facility] COMPREHENSIVE METABOLIC 2022-01-08 12:04:00 Duglas Ruiz [facility] PANEL [facility] ALCOHOL LEVEL, BLOOD 2022-01-08 12:04:00 Duglas Ruiz [facility] ESTIMATED GFR 2022-01-08 12:04:00 Duglas Ruiz [facility] ECG 12-LEAD 2022-01-08 11:59:53 Duglas Ruiz [facility] POC GLUCOSE 2022-01-08 11:53:00 Duglas Ruiz [facility] ECG ED PRELIMINARY 2022-01-08 11:29:[address] [facility] [place] INTERPRETATION [facility] Plan of Care Planned Activity Planned Date Details Comments Source Future Scheduled 2022-05-31 Pneumococcal Vaccine: [facility] Test 12:18:02 Pediatrics (0 to 5 Years) and At-Risk Patients (6 to 64 Years) (1 - PCV) [code = Pneumococcal Vaccine: Pediatrics (0 to 5 Years) and At-Risk Patients (6 to 64 Years) (1 - PCV)] Future Scheduled 2022-05-31 Hepatitis C screening [facility] Test 12:18:02 (procedure) [code = 818897924] Future Scheduled 2022-05-31 COVID-19 VACCINE (2 - [facility] Test 12:18:02 Pfizer series) [code = COVID-19 VACCINE (2 - Pfizer series)] Future Scheduled 2022-05-31 INFLUENZA VACCINE Method [facility] Test 12:18:02 [code = INFLUENZA VACCINE] Future Scheduled 2022-03-27 Pneumococcal Vaccine: [facility] Test 16:00:51 Pediatrics (0 to 5 Years) and At-Risk Patients (6 to 64 Years) (1 - PCV) [code = Pneumococcal Vaccine: Pediatrics (0 to 5 Years) and At-Risk Patients (6 to 64 Years) (1 - PCV)] Future Scheduled 2022-03-27 Hepatitis C screening [facility] Test 16:00:51 (procedure) [code = 715171070] Future Scheduled 2022-03-27 COVID-19 VACCINE (2 - [facility] Test 16:00:51 Pfizer series) [code = COVID-19 VACCINE (2 - Pfizer series)] Future Scheduled 2022-03-27 INFLUENZA VACCINE Method [facility] Test 16:00:51 [code = INFLUENZA VACCINE] Future Scheduled 2022-03-27 Pneumococcal Vaccine: [facility] Test 16:00:51 Pediatrics (0 to 5 Years) and At-Risk Patients (6 to 64 Years) (1 - PCV) [code = Pneumococcal Vaccine: Pediatrics (0 to 5 Years) and At-Risk Patients (6 to 64 Years) (1 - PCV)] Future Scheduled 2022-03-27 Hepatitis C screening [facility] Test 16:00:51 (procedure) [code = 204768436] Future Scheduled 2022-03-27 COVID-19 VACCINE (2 - [facility] Test 16:00:51 Pfizer series) [code = COVID-19 VACCINE (2 - Pfizer series)] Future Scheduled 2022-03-27 INFLUENZA VACCINE Method [facility] Test 16:00:51 [code = INFLUENZA VACCINE] Future Scheduled 2022-03-27 Pneumococcal Vaccine: [facility] Test 16:00:51 Pediatrics (0 to 5 Years) and At-Risk Patients (6 to 64 Years) (1 - PCV) [code = Pneumococcal Vaccine: Pediatrics (0 to 5 Years) and At-Risk Patients (6 to 64 Years) (1 - PCV)] Future Scheduled 2022-03-27 Hepatitis C screening [facility] Test 16:00:51 (procedure) [code = 242048821] Future Scheduled 2022-03-27 COVID-19 VACCINE (2 - [facility] Test 16:00:51 Pfizer series) [code = COVID-19 VACCINE (2 - Pfizer series)] Future Scheduled 2022-03-27 INFLUENZA VACCINE Method [facility] Hospital Test 16:00:51 [code = INFLUENZA VACCINE] Diagnostic Test 2021-06-28 SARS CoV 2 RNA [facility] Pending 00:00:00 (COVID-19), QL, [employer]-PCR, respiratory specimen [code = SARS CoV 2 RNA (COVID-19), QL, 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 Test [code = COVID-19 VACCINE (1)] Future Scheduled Hepatitis C screening [facility] Test (procedure) [code = 925254604] Future Scheduled INFLUENZA VACCINE Method [facility] Test [code = INFLUENZA VACCINE] Encounters Start End Encounter Admission Attending Care Care Encounter Source Date/Time Date/Time Type Type Clinicians Facility Department ID 2022-06-13 Inpatient [facility] [id number] [facility] 13:58:24 [id number] [place] 2022-01-21 Inpatient [facility] [id number] [facility] 17:23:15 [id number] [place] 2021-12-04 Inpatient 1 [facility] [id number] H arris 06:54:00 [facility] 2022-04-21 2022-04-21 Outpatient KAR, [facility] [id number] [place] 09:54:46 23:59:00 [facility] 2022-04-18 2022-04-18 Outpatient Rubin [facility] [id number] [place] 15:46:00 15:46:00 Michelle [id number] [facility] ical 3 [place] 2022-01-21 2022-01-21 Outpatient ANGLE, [facility] [id number] Fern[place] 00:00:00 00:00:00 [facility] 2022-01-08 2022-01-08 Emergency Ruiz, 1.2.840.1 [id number] [facility] 05:41:00 13:53:00 Clif 77663.1.1 101 [facility] 3.430.2.7 Hospit a [facility] .3.996700 l ai .8 2022-01-08 2022-01-08 Emergency Ruiz, 1.2.840.1 [id number] [facility] 05:41:00 13:53:[address] 3.430.2.7 Hospit a Dasharathbh .3.935213 l ai .8 2022-01-08 2022-01-08 Travel 1.2.840.1 [id number] [id number] [facility] 00:00:00 00:00:[address] 3.430.2.7 0.2.7.3.698 Ho spita .3.079810 084.8 l .8 2022-01-08 2022-01-08 Travel 1.2.840.1 1.2.360.252 [id number] [facility] 00:00:00 00:00:[address] 3.430.2.7 0.2.7.3.698 Ho spita .3.406398 084.8 l .8 2021-12-25 2021-12-25 Outpatient [facility] [id number] [place] 15:35:29 16:13:31 [facility] 2021-12-04 2021-12-09 Inpatient [facility] [id number] [place] 06:54:00 15:22:00 [facility] 2021-12-02 2021-12-04 Emergency [facility] [id number] [place] 13:58:00 06:45:00 [facility] 2021-12-02 2021-12-02 Emergency 1 [facility] [id number] [place] 13:58:00 13:58:00 [facility] 2021-07-04 2021-07-04 Outpatient Koudela_A [facility] [id number] [place] 02:37:00 02:37:00 [facility] 2021-06-28 2021-06-28 Outpatient Koudela_A [facility] [id number] [place] 11:34:00 11:34:00 1203 [facility] 2021-06-28 2021-06-28 Outpatient Radha [facility] [id number] [place] 09:22:00 09:22:00 [id number] da [facility] 2021-06-28 2021-06-28 Suly [facility] [place] - [id number] M atagor 00:00:00 00:00:00 Discovery Alejandra da PA-C: [address] [facility] - [address], [facility] [place], [place] [address] , Ph. 2011-09-26 2011-09-26 Emergency [facility] [id number] [place] 15:23:59 15:23:59 Health Results Test Description Test Time Test Comments Results Result Comments Source ECG 12 lead 2022-01-09 03:31:50 Test Item Value Reference Range Interpretation Comme nts Ventricular rate (test code = 253) Atrial rate (test code = 255) DC interval (test code = 266) QRSD interval (test code = 260) QT interval (test code = 264) QTC interval (test code = 265) P axis 1 (test code = 267) QRS axis 1 (test code = 268) T wave axis (test code = 270) EKG impression (test code = 273) Normal sinus rhythm-Normal ECG-In automated comparison with ECG of 23-APR-2018 01:52,-[facility] [id number] 03:31:50 Test Item Value Reference Range Interpretation Comments Ventricular rate (test code = 253) Atrial rate (test code = 255) DC interval (test code = 266) QRSD interval [...] Hall MD ([id number]) on 01/08/2022 10:31:22 PM [place] [address] [id number] 03:31:50 Test Item Value Reference Range Interpretation Comments Ventricular rate (test code = 253) Atrial rate (test code = 255) DC interval (test code = 266) QRSD interval [...] lengthened-Electronica lly Signed By Mattie Hall MD Min ([id number]) on 01/08/2022 10:31:22 PM [facility] 12 [id number] 03:31:50 Test Item Value Reference Range Interpretation Comments Ventricular rate (test code = 253) Atrial rate (test code = 255) DC interval (test code = 266) QRSD interval [...] Hall MD ([id number]) on 01/08/2022 10:31:22 [facility] [Presence] in Respiratory specimen by BJ with probe [id number] 13:38:07 Test Item Value Reference Range Interpretation Comments SARS-CoV-2 (COVID-19) RNA Not detected [Presence] in Respiratory specimen by BJ with probe detection (test code = 06112-9) Whether patient is employed in a Unknown healthcare setting (test code = 34570-1) Whether the patient has symptoms Unknown related to condition of interest (test code = 15098-7) Whether the patient was Unknown hospitalized for condition of interest (test code = 87742-7) Whether the patient was admitted Unknown to intensive care unit (ICU) for condition of interest (test code = 28727-1) Whether patient resides in a Unknown congregate care setting (test code = 30590-3) status (test code = Unknown 72479-6) Date and time of symptom onset Unknown (test code = 11000-9) [facility]2022-06-15 11:55:00 Test Item Value Reference Range Interpretation Comments POC glucose (test code 101 mg/dL 65-99 H Opera tor Name: = 01020-4) Teodora salinas ID: [id number] able: HMW 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 department Interpretation Abnormal (test code = 58215-6) [facility]2022-06-15 11:55:00 Test Item Value Reference Range Interpretation Comments POC glucose (test code 101 mg/dL 65-99 H Opera tor Name: = 70765-8) Teodora salinas ID: [id number] able: HMW 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 department Interpretation Abnormal (test code = 97770-9) [facility]2022-06-15 11:55:00 Test Item Value Reference Range Interpretation Comments POC glucose (test code 101 mg/dL 65-99 H Opera tor Name: = 85657-9) Teodora salinas ID: [id number] able: HMW 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 department Interpretation Abnormal (test code = 50746-5) [facility]2022-06-15 11:55:00 Test Item Value Reference Range Interpretation Comments POC glucose (test code 101 mg/dL 65-99 H Opera tor Name: = 38933-8) Teodora salinas ID: [id number] able: HMW 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 department Interpretation Abnormal (test code = 61511-3) [id number] 09:26:36 Test Item Value Reference Range Interpretation Comments T pallidum Ab Ser Ql Aggl (test NEGATIVE Negative, Equivocal code = 99885-4) Reagin+T pallidum IgG+IgM NEGATIVE Negative SerPl-Imp (test code = 96383-7) HHSHIV 1+2 Ab+HIV1 p24 Ag SerPl Ql [id number] 08:08:27 Test Item Value Reference Range Interpretation Comments HIV 1+2 Ab+HIV1 p24 Ag SerPl Ql [place] NEGATIVE Negative (test code = 68097-1) [id number]-SvF-4 RNA Resp Ql [id number] 16:27:49 Test Item Value Reference Range Interpretation Comments Hospitalized? (test No code = 92220-8) ICU? (test code = No 82766-8) Symptomatic as defined No by CDC? (test code = 61878-7) Employed in Unknown Healthcare? (test code = 74538-0) Resident in a Unknown congregate care setting (including nursing homes, residential care for people with intellectual and developmental disabilities, psychiatric treatment facilities, group homes, board and care homes, homeless alf, foster care or other): (test code = 33592-8) SARS-CoV-2 RNA Resp Ql NOT DETECTED Not Detected INTER PRETATION: No BJ+probe (test code = detec table levels 61201-7) of SARS-CoV-2 Coronavirus (COVID-19) were present in [...] its performance characteristics were verified by the [facility] molecular diagnostics laboratory and is authorized for clinical diagnostic use. This laboratory is certified under the Clinical Laboratory Improvement Amendments (CLIA) as qualified to perform high complexity clinical laboratory testing.HHSHIV 1+2 Ab+HIV1 p24 Ag SerPl Ql [id number] 16:25:27 Test Item Value Reference Range Interpretation Comments HIV 1+2 Ab+HIV1 p24 Ag SerPl Ql [place] NEGATIVE Negative (test code = 52680-2) HHS
[2022-07-09 19:46] LABS: Absolute Lymphocytes (CBC) 2.2 K/uL (0.7-4.9); Hematocrit 45.1 % (39.6-49.0); Lymphocytes % 18.1 % (15.3-44.8); MCV 87.3 fL (80-100); MPV 7.8 fL (7.6-11.3); RBC Red Blood Cell Count 5.16 M/uL (4.33-5.43)
[2022-07-09 19:49] LABS: Protime INR 1.05
[2022-07-09 19:57] LABS: SARS-CoV-2 Antigen Rapid Res Negative (Negative)
[2022-07-09 19:59] LABS: ALT/SGPT 71 U/L (16-61); AST/SGOT 117 U/L (15-37); Albumin 4.4 g/dL (3.4-5.0); Alkaline Phosphatase 95 U/L (45-117); BUN Blood Urea Nitrogen 15 mg/dL (7-18); Bicarbonate 22 mmol/L (21-32); Bilirubin Direct 0.2 mg/dL (0-0.2); Bilirubin Total 1.2 mg/dL (0.2-1.0); Glomerular Filtration Rate 120 ml/min (=/>90); Glucose Level 92 mg/dL (74-106); Potassium 3.3 mmol/L (3.5-5.1); Protein, Total 8.2 g/dL (6.4-8.2); Sodium Level 133 mmol/L (136-145)
[2022-07-09] MEDS ORDERED: POTASSIUM CL SA 10 MEQ TAB PO ONE (20:39)
[2022-07-09] MEDS ORDERED: NA CHLORIDE 0.9% 1,000 ML ONE (20:39)
[2022-07-09 23:31] LABS: Urine Blood Negative (Negative); Urine Glucose Negative (Negative); Urine Protein 2+ (Negative); Urine Specific Gravity >=1.030 (1.005-1.030)
--- NOTE | 2022-07-09 23:49 | ER ---
Nurse's Notes [facility] Name: Johann Lopez Age: 31 yrs Sex: Male : 1990 Arrival Date: 07/09/2022 Time: 18:22 Bed 16 Private MD: Diagnosis: Adjustment disorder with anxiety Presentation: 07/09 18:33 Chief complaint: EMS states: they were called out by PD for a mental health situation ap3 due to the patient having auditory and visual hallucinations and the patient was telling PD that he wanted to harm himself. Upon arrival to the ED patient is very quiet, and is not cooperating with this nurses triage. EMS states the patient was not cooperating with their questions either. Coronavirus screen: At this time, the client does not indicate any symptoms associated with coronavirus-19. Ebola Screen: No symptoms or risks identified at this time. Initial Sepsis Screen: Does the patient meet any 2 criteria? HR > 90 bpm. Does the patient have a suspected source of infection? No. Patient's initial sepsis screen is negative. Onset of symptoms was July 09, 2022. 18:33 Method Of Arrival: EMS: [facility] ap3 18:33 Acuity: NEW 2 ap3 18:38 Risk Assessment: Do you want to hurt yourself or someone else? Patient reports ap3 desire/thoughts of hurting themselves or someone else. Provider notified. Triage Assessment: 18:36 General: Appears in no apparent distress. Behavior is flat, quiet. Pain: Denies pain. ap3 Neuro: Level of Consciousness is awake, alert, Oriented to patient not answering nurses orientation questions at this time. Cardiovascular: Patient's skin is warm and dry. Respiratory: Airway is patent Respiratory effort is even, unlabored, Respiratory pattern is regular, symmetrical. Historical: - Allergies: 18:36 No Known Allergies; ap3 - Home Meds: 18:56 eszopiclone 2 mg oral tab [Active]; prazosin 1 mg Oral cap [Active]; gabapentin 300 mg ap3 oral cap [Active]; sertraline 50 mg oral tab [Active]; bupropion HCl 150 mg Oral Tb24 1 tab once daily [Active]; - PMHx: 18:36 Hypertensive disorder; IV DRUG ABUSE; ap3 - Immunization history:: unknown. - Social history:: Smoking status: unknown. Screenin:38 Abuse screen: Denies threats or abuse. Nutritional screening: No deficits noted. ap3 Tuberculosis screening: No symptoms or risk factors identified. Fall Risk No fall in past 12 months (0 pts). 18:39 [facility] ED Fall Risk Assessment (Adult) History of falling in the last 3 months, ap3 including since admission No falls in past 3 months (0 pts) Confusion or Disorientation Yes (5 pts) Intoxicated or Sedated No (0 pts) Impaired Gait No (0 pts) Mobility Assist Device Used No (0 pt) Altered Elimination No (0 pt) Score/Fall Risk Level 0 - 2 = Low Risk Oriented to surroundings, Maintained a safe environment, Educated pt \\T\\ family on fall prevention, incl call for assistance when getting out of bed, Assessed \\T\\ reinforced patient's understanding of fall precautions, Provided non-skid footwear, Hourly rounding (assess needs \\T\\ fall precautionary measures) done, Used ambulatory aids as needed (educated on \\T\\ assisted with), Used gait belt as appropriate. Humpty Dumpty Scale Fall Assessment Tool (age< 18yrs) Age 13 years and above (1 pt). Assessment: 19:20 General: Appears in no apparent distress. comfortable, Behavior is calm, cooperative, jb4 appropriate for age. Pain: Denies pain. Neuro: Level of Consciousness is awake, alert, obeys commands, Oriented to person, place, time, situation. Cardiovascular: Patient's skin is warm and dry. Respiratory: Airway is patent Respiratory effort is even, unlabored, Respiratory pattern is regular, symmetrical. GI: No signs and/or symptoms were reported involving the gastrointestinal system. : No signs and/or symptoms were reported regarding the genitourinary system. EENT: No signs and/or symptoms were reported regarding the EENT system. Derm: Skin is intact, Skin is pink, warm \\T\\ dry. Musculoskeletal: Circulation, motion, and sensation intact. Range of motion: intact in all extremities. 20:30 Reassessment: Pt sitting quietly in bed. Respirations are even and unlabored with no jb4 s/s of pain or distress noted. 21:30 Reassessment: Patient appears in no apparent distress at this time. No changes from jb4 previously documented assessment. Patient and/or family updated on plan of care and expected duration. Pain level reassessed. 22:30 Reassessment: Patient appears in no apparent distress at this time. No changes from jb4 previously documented assessment. Patient and/or family updated on plan of care and expected duration. Pain level reassessed. 23:30 Reassessment: Patient appears in no apparent distress at this time. No changes from jb4 previously documented assessment. Patient and/or family updated on plan of care and expected duration. Pain level reassessed. 07/10 00:30 Reassessment: Patient appears in no apparent distress at this time. No changes from jb4 previously documented assessment. Patient and/or family updated on plan of care and expected duration. Pain level reassessed. 01:30 Reassessment: Patient appears in no apparent distress at this time. No changes from jb4 previously documented assessment. Patient and/or family updated on plan of care and expected duration. Pain level reassessed. 02:30 Reassessment: Patient appears in no apparent distress at this time. No changes from jb4 previously documented assessment. Patient and/or family updated on plan of care and expected duration. Pain level reassessed. 04:00 Reassessment: Pt remains sitting in bed quietly, watching TV. given sandwich and chips jb4 per request. 05:00 Reassessment: Patient appears in no apparent distress at this time. Patient and/or jb4 family updated on plan of care and expected duration. Pain level reassessed. Patient is alert, oriented x 3, equal unlabored respirations, skin warm/dry/pink. 07:49 Reassessment: No changes from previously documented assessment. ko1 10:00 Reassessment: No changes from previously documented assessment. ko1 12:00 Reassessment: No changes from previously documented assessment. Patient is alert, ko1 oriented x 3, equal unlabored respirations, skin warm/dry/pink. Patient denies pain at this time. 14:00 Reassessment: No changes from previously documented assessment. Patient is alert, ko1 oriented x 3, equal unlabored respirations, skin warm/dry/pink. 19:15 General: Appears in no apparent distress. comfortable, Behavior is calm, cooperative. ha1 Pain: Denies pain. Neuro: Level of Consciousness is awake, alert, obeys commands, Oriented to person, place, time, situation, Reports hallucinations that are annoying him.. Cardiovascular: Patient's skin is warm and dry. Respiratory: Airway is patent Respiratory effort is even, unlabored, Respiratory pattern is regular, symmetrical. GI: No signs and/or symptoms were reported involving the gastrointestinal system. : No signs and/or symptoms were reported regarding the genitourinary system. EENT: No deficits noted. No signs and/or symptoms were reported regarding the EENT system. Derm: Skin is pink, warm \\T\\ dry. Musculoskeletal: Circulation, motion, and sensation intact. Range of motion: intact in all extremities. 20:15 Reassessment: Patient and/or family updated on plan of care and expected duration. Pain ha1 level reassessed. Patient is alert, oriented x 3, equal unlabored respirations, skin warm/dry/pink. requesting medication. notified care provider Patient denies pain at this time. 21:15 Reassessment: Patient and/or family updated on plan of care and expected duration. Pain ha1 level reassessed. Patient is alert, oriented x 3, equal unlabored respirations, skin warm/dry/pink. Patient denies pain at this time. 22:15 Reassessment: Patient and/or family updated on plan of care and expected duration. Pain ha1 level reassessed. Patient is alert, oriented x 3, equal unlabored respirations, skin warm/dry/pink. Patient denies pain at this time. 23:15 Reassessment: eyes closed. Respiratory: Airway is patent Respiratory effort is even, ha1 unlabored, Respiratory pattern is regular, symmetrical. 07/11 00:07 Reassessment: eyes closed. Respiratory: Respiratory effort is even, unlabored, ha1 Respiratory pattern is regular, symmetrical. 01:00 Reassessment: eyes closed. Respiratory: Respiratory effort is even, unlabored, ha1 Respiratory pattern is regular, symmetrical. 02:00 Reassessment: eyes closed. Respiratory: Respiratory effort is even, unlabored, ha1 Respiratory pattern is regular, symmetrical. 03:00 Reassessment: eyes closed. Respiratory: Airway is patent Respiratory effort is even, ha1 unlabored, Respiratory pattern is regular, symmetrical. 04:00 Reassessment: eyes closed. Respiratory: Airway is patent Respiratory effort is even, ha1 unlabored, Respiratory pattern is regular, symmetrical. 05:00 Reassessment: eyes closed. Respiratory: Airway is patent Respiratory effort is even, ha1 unlabored, Respiratory pattern is regular, symmetrical. 06:00 Reassessment: eyes closed. Respiratory: Airway is patent Respiratory effort is even, ha1 unlabored, Respiratory pattern is regular, symmetrical. 07:11 General: Appears in no apparent distress. comfortable, Behavior is calm, cooperative, db appropriate for age, quiet. 07:15 Reassessment: Patient appears in no apparent distress at this time. Patient and/or db family updated on plan of care and expected duration. Pain level reassessed. Patient is alert, oriented x 3, equal unlabored respirations, skin warm/dry/pink. pateint resting at shift change. easily aroused. No complaints. No SI complaints. Calm and cooperative. 07:29 Reassessment:. ha1 08:42 Reassessment: Patient appears in no apparent distress at this time. No changes from db previously documented assessment. Patient and/or family updated on plan of care and expected duration. Pain level reassessed. Patient is alert, oriented x 3, equal unlabored respirations, skin warm/dry/pink. CALLED KITCHEN FOR PATIENT BREAKFAST TRAY. 09:15 Reassessment: Patient appears in no apparent distress at this time. Patient and/or db family updated on plan of care and expected duration. Pain level reassessed. Patient is alert, oriented x 3, equal unlabored respirations, skin warm/dry/pink. breakfast tray at bedside. 10:30 Reassessment: Patient appears in no apparent distress at this time. No changes from db previously documented assessment. Patient and/or family updated on plan of care and expected duration. Pain level reassessed. Patient is alert, oriented x 3, equal unlabored respirations, skin warm/dry/pink. sleeping. 11:47 Reassessment: Patient appears in no apparent distress at this time. No changes from db previously documented assessment. Patient and/or family updated on plan of care and expected duration. Pain level reassessed. Patient is alert, oriented x 3, equal unlabored respirations, skin warm/dry/pink. patient up using urinal and eating. 14:14 Reassessment: Patient and/or family updated on plan of care and expected duration. Pain db level reassessed. Patient is alert, oriented x 3, equal unlabored respirations, skin warm/dry/pink. [facility] SCREENER AT PATIENT BEDSIDE SPEAKING WITH PATIENT. Patient states symptoms have improved. 15:00 Reassessment: Patient appears in no apparent distress at this time. No changes from db previously documented assessment. Patient and/or family updated on plan of care and expected duration. Pain level reassessed. Patient is alert, oriented x 3, equal unlabored respirations, skin warm/dry/pink. patient provided lunch tray. 15:00 Reassessment:. db 15:45 Reassessment: Patient states would like to go home and would no longer like to stay. db Notified Dr. Roper. States will speak with the patient. 17:47 Reassessment: Patient appears in no apparent distress at this time. No changes from db previously documented assessment. Patient and/or family updated on plan of care and expected duration. Pain level reassessed. Patient is alert, oriented x 3, equal unlabored respirations, skin warm/dry/pink. 18:09 Reassessment: Patient appears in no apparent distress at this time. No changes from db previously documented assessment. Patient and/or family updated on plan of care and expected duration. Pain level reassessed. Patient is alert, oriented x 3, equal unlabored respirations, skin warm/dry/pink. Patient states feeling better. Psych: 07/09 19:20 [place] Suicide Severity Screening: In the past month, have you wished you were jb4 or wished you could go to sleep and not wake up? Patient responds "yes." "In the past month, have you actually had any thoughts of killing yourself?" Patient responds "no." "In your lifetime, have you ever done anything, started to do anything, or prepared to do anything to end your life?" Patient responds "no.". Subjective: Patient's mood is sad, Hallucinations are auditory, Having thoughts of suicide. Denies suicidal plan. Objective: Patient is cooperative. Interventions: Removed personal items and placed in bag. Patient placed in hospital gown. Searched person for dangerous items. Safety Checks: Personal items have been removed. Door is open. No visitors are present at this time. Pt denies substance abuse. 07/11 07:53 [place] Suicide Severity Screening: In the past month, have you wished you were db or wished you could go to sleep and not wake up? Patient responds "No." "In the past month, have you actually had any thoughts of killing yourself?" Patient responds "no." "In your lifetime, have you ever done anything, started to do anything, or prepared to do anything to end your life?" Patient responds "no." no longer complains of SI. Subjective: Patient's mood is sad, Hallucinations are denied Having thoughts of suicide. Denies suicidal plan. Objective: Patient is cooperative, Speech is normal, Affect is appropriate. Interventions: Removed personal items and placed in bag. Patient placed in hospital gown. Patient reassessed during use of restraints. Patient is physically safe. Patient's cardiac status is stable. Patient's respirations are even and unlabored. Patient has good circulation in all extremities as indicated by capillary refill < 3 seconds. Patient's ROM assessed and is intact. Safety Checks: Personal items have been removed. Door is open. No visitors are present at this time. Pt denies substance abuse. Commitment: Patient will be a voluntary commitment. Vital Signs: 07/09 18:33 BP 147 / 99; Pulse 110; Resp 17; Temp 98.7(O); Pulse Ox 98% on R/A; Weight 104.33 kg; ap3 Height 5 ft. 10 in. (177.80 cm); 07/10 05:54 BP 125 / 71; Pulse 79; Resp 16 S; Temp 98.8(TE); Pulse Ox 97% on R/A; jb4 12:30 BP 132 / 75; Pulse 75; Pulse Ox 99% on R/A; ko1 07/11 02:05 BP 128 / 76; Pulse 68; Resp 16; Pulse Ox 98% on R/A; ha1 06:50 BP 111 / 65; Pulse 74; Resp 16 S; Temp 98.1; Pulse Ox 98% on R/A; ha1 11:46 BP 105 / 71; Pulse 88; Resp 16; Temp 96.7(O); Pulse Ox 95% on R/A; db 17:32 BP 119 / 72; Pulse 85; Resp 18; Temp 98.3(O); Pulse Ox 96% on R/A; mm9 07/09 18:33 Body Mass Index 33.00 (104.33 kg, 177.80 cm) ap3 Donya Coma Score: 11:46 Eye Response: spontaneous(4). Verbal Response: oriented(5). Motor Response: obeys db commands(6). Total: 15. ED Course: 07/09 18:22 Patient arrived in ED. as 18:32 Beatris Mendez FNP-C is PHCP. kb 18:32 Darren Mendosa MD is Attending Physician. kb 18:33 Adriana Abdul, RN is Primary Nurse. ap3 18:36 Triage completed. ap3 18:38 Arm band placed on right wrist. ap3 18:38 Patient has correct armband on for positive identification. Bed in low position. ap3 Patient is placed in psych hold. 18:40 nurse removed all cords, and loose medical equipment from patients room. ap3 19:20 Initial lab(s) drawn, by me, sent to lab. Inserted saline lock: 20 gauge in left hand, jb4 using aseptic technique. Blood collected. 07/10 00:36 Attending Physician role handed off by Darren Mendosa MD kdr 00:36 Michael Maravilla MD is Attending Physician. kdr 01:05 Faxed chart to all Psych Facilities listed. wm 02:22 [facility] called and denied due to capability. wm 03:25 [facility] called to deny due to capacity. wm 05:59 [facility] called to request the exclusionary form and covid result, faxed immediately wm afterwards. 09:00 Sitter at bedside. ko1 09:00 No provider procedures requiring assistance completed. ko1 09:05 Attending Physician role handed off by Michael Maravilla MD sp3 09:05 Abran Ruiz MD is Attending Physician. sp3 19:05 Attending Physician role handed off by Abran Ruiz MD rory 19:05 Darren Mendosa MD is Attending Physician. rory 19:18 Primary Nurse role handed off by Adriana Abdul, RN em1 21:11 Malathi Hernandez, MISHA is Primary Nurse. ha1 07/11 07:52 Patient has correct armband on for positive identification. Bed in low position. Call db light in reach. Side rails up X 1. Patient is placed in psych hold. 12:[address] [facility] called/ they will page out a screener. eb 14:07 Selvin from the [facility] is here to do a screener. eb 15:46 Attending Physician role handed off by Darren Mendosa MD rt 15:46 Isaac Sam MD is Attending Physician. rt 16:43 faxed patient chart to the following facilities with updated facesheet and clincals / eb [facility]/ [facility]/ [facility]/ [facility]/ [facility]/ [facility]. 17:19 connected Sudarshan from [facility] with Eliza brown nurse to nurse. eb 17:23 Report given to Sudarshan at [facility]. db 17:30 administrative approval given by Juany Durbin / patient has been accepted to [facility]/ Dr. Nj has accepted the patient in transfer. 18:09 IV discontinued, intact, bleeding controlled, No redness/swelling at site. db Administered Medications: 07/09 20:42 Drug: NS 0.9% 1000 ml Route: IV; Rate: 1000 ml; Site: left hand; jb4 22:00 Follow up: Response: No adverse reaction; IV Status: Completed infusion; IV Intake: jb4 1000ml 20:42 Drug: Potassium Chloride 20 mEq Route: PO; jb4 21:10 Follow up: Response: No adverse reaction [facility] 07/10 00:09 Drug: NS 0.9% 1000 ml Route: IV; Rate: 1000 ml; Site: left hand; jb4 01:00 Follow up: Response: No adverse reaction; IV Status: Completed infusion; IV Intake: jb4 1000ml 21:35 Drug: Geodon (ziprasidone) 20 mg Route: IM; Site: left vastus lateralis; ha1 22:05 Follow up: Response: No adverse reaction; RASS: Alert and Calm (0) ha1 21:39 Drug: Ativan (LORazepam) 2 mg Route: IVP; Site: left hand; ha1 22:00 Follow up: Response: No adverse reaction; RASS: Alert and Calm (0) ha1 22:05 Follow up: Response: No adverse reaction; RASS: Alert and Calm (0) ha1 07/11 11:57 Drug: Ativan (LORazepam) 1 mg Route: PO; db 13:38 Follow up: Response: No adverse reaction db 13:40 Follow up: Response: No adverse reaction; Anxiety decreased db 17:28 Drug: Ativan (LORazepam) 1 mg Route: IVP; Site: left hand; db 17:46 Follow up: Response: No adverse reaction; Anxiety decreased db Medication: 07/09 18:39 VIS not applicable for this client. ap3 Intake: 22:00 IV: 1000ml; Total: 1000ml. jb4 07/10 01:00 IV: 1000ml; Total: 2000ml. jb4 06:55 IV: 2000ml (IV Fluid); Total: 4000ml. jb4 Output: 06:55 Urine: 400ml (Voided); Total: 400ml. jb4 07:10 Urine: 300ml (Voided); Total: 700ml. jb4 Outcome: 07/09 23:48 ER care complete, transfer ordered by . kb 07/11 16:15 Discharge ordered by MD. rt 16:41 ER care complete, transfer ordered by MD. rt 18:07 Discharged to [facility] 18:07 Condition: stable 18:07 Discharge instructions given to EMS. 18:17 Patient left the ED. db Signatures: Beatris Mendez, ABSORPTION AND ADSORPTION ENGINEER-C ABSORPTION AND ADSORPTION ENGINEER-Ckb Darren Mendosa MD MD cha Rittger, Kevin, MD MD kdr Martinez, Johann Walter em1 Brendan Gale, Adriana Acevedo RN, RN RN ap3 Jennifer Avalos Wendy wm Patel, Setul, MD MD sp3 Malathi Hernandez RN RN Shama Pacheco RN RN ko1 Eliza Isbell RN RN db Martinez, Maria mm9 Iasac Sam MD MD rt Corrections: (The following items were deleted from the chart) 07/09 18:38 18:33 Risk Assessment: Do you want to hurt yourself or someone else? Patient reports no ap3 desire to harm self or others. ap3 07/10 15:41 15:41 BP 132 / 75; Pulse 75bpm; Pulse Ox 99% RA; ko1 ko1 15:42 14:50 Reassessment: No changes from previously documented assessment. Patient is alert, ko1 oriented x 3, equal unlabored respirations, skin warm/dry/pink. ko1 07/11 14:36 12:11 Diet: called the [facility]/ She will page a screener to evaluate the eb patient. . eb
--- NOTE | 2022-07-09 23:49 | EDPHYS ---
Physician Documentation [facility] Name: Johann Lopez Age: 31 yrs Sex: Male : 1990 Arrival Date: 07/09/2022 Time: 18:22 Bed 16 Private MD: ED Physician Isaac Sam HPI: 07/09 23:33 This 31 yrs old Male presents to ER via EMS with complaints of Suicidal Ideation. kb 23:33 The patient presents to the emergency department with suicide ideation, but the patient kb has no formulated plan. Onset: The symptoms/episode began/occurred today. Associated signs and symptoms: Pertinent positives; suicide ideation. Severity of symptoms: At their worst the symptoms were moderate in the emergency department the symptoms are unchanged. The patient has not experienced similar symptoms in the past. The patient has not recently seen a physician. Pt reports suicidal ideations that started today. States he does not have a plan. Pt is very quiet and will not answer all questions. . Historical: - Allergies: 18:36 No Known Allergies; ap3 - Home Meds: 18:56 eszopiclone 2 mg oral tab [Active]; prazosin 1 mg Oral cap [Active]; gabapentin 300 mg ap3 oral cap [Active]; sertraline 50 mg oral tab [Active]; bupropion HCl 150 mg Oral Tb24 1 tab once daily [Active]; - PMHx: 18:36 Hypertensive disorder; IV DRUG ABUSE; ap3 - Immunization history:: unknown. - Social history:: Smoking status: unknown. ROS: 23:33 Constitutional: Negative for fever, chills, and weight loss. kb 23:33 Psych: Positive for suicidal ideation. 23:33 All other systems are negative. Exam: 22:50 Constitutional: This is a well developed, well nourished patient who is awake, alert, kb and in no acute distress. Head/Face: Normocephalic, atraumatic. ENT: Moist Mucous membranes Cardiovascular: Regular rate and rhythm with a normal S1 and S2. No gallops, murmurs, or rubs. No pulse deficits. Respiratory: Respirations even and unlabored. No increased work of breathing. Talking in full sentences Abdomen/GI: Soft, non-tender. No distention Skin: Warm, dry with normal turgor. Normal color. MS/ Extremity: Pulses equal, no cyanosis. Neurovascular intact. Full, normal range of motion. Neuro: Awake and alert, GCS 15, oriented to person, place, time, and situation. Moves all extremities. Normal gait. 22:50 ECG was reviewed by the Attending Physician. 22:50 Psych: Behavior/mood is pleasant, Affect is flat, Oriented to person, place, time, Patient having thoughts of suicide. Judgement / Insight is normal. Vital Signs: 18:33 BP 147 / 99; Pulse 110; Resp 17; Temp 98.7(O); Pulse Ox 98% on R/A; Weight 104.33 kg; ap3 Height 5 ft. 10 in. (177.80 cm); 07/10 05:54 BP 125 / 71; Pulse 79; Resp 16 S; Temp 98.8(TE); Pulse Ox 97% on R/A; jb4 12:30 BP 132 / 75; Pulse 75; Pulse Ox 99% on R/A; ko1 07/11 02:05 BP 128 / 76; Pulse 68; Resp 16; Pulse Ox 98% on R/A; ha1 06:50 BP 111 / 65; Pulse 74; Resp 16 S; Temp 98.1; Pulse Ox 98% on R/A; ha1 11:46 BP 105 / 71; Pulse 88; Resp 16; Temp 96.7(O); Pulse Ox 95% on R/A; db 17:32 BP 119 / 72; Pulse 85; Resp 18; Temp 98.3(O); Pulse Ox 96% on R/A; mm9 07/09 18:33 Body Mass Index 33.00 (104.33 kg, 177.80 cm) ap3 Lincoln Coma Score: 11:46 Eye Response: spontaneous(4). Verbal Response: oriented(5). Motor Response: obeys db commands(6). Total: 15. MDM: 07/09 18:33 Patient medically screened. kb 23:32 Data reviewed: vital signs, nurses notes. Data interpreted: Pulse oximetry: on room air kb is 98 %. Interpretation: normal. Counseling: I had a detailed discussion with the patient and/or guardian regarding: the historical points, exam findings, and any diagnostic results supporting the discharge/admit diagnosis, lab results, the need to transfer to another facility. ED course: Pt is very quiet, only answers a few questions, but is in agreement with transfer to psych facility to get help. 07/10 00:40 Transition of care: After a detail discussion of the patient's case, care is kb transferred to Michael Maravilla MD. 07/11 16:16 ED course: Was evaluated by cesar Pearson during my shift. The patient's states that he is rt no longer suicidal nor does have paranoid thoughts at this time. Patient initially stated that he would be willing to go voluntarily to a psychiatric hospital, however, he subsequently changed his mind." Did attempt to talk with the patient's father who stated that he was not comfortable taking the patient home. I discussed this with the patient, he states that he does not wish to be admitted to a psychiatric hospital. At this time, his emergency skilled nursing order has run up and there is no legal recourse to keep him further in the hospital against as well nor to send him involuntarily to a psychiatric hospital for further care. I discussed this with the patient. He will follow-up on Thursday to have Invega injection. Strict return precautions were given.. 16:41 ED course: Patient spoke with his mother, he changes mind regarding discharge and rt wishes to go to a psychiatric facility voluntarily. We will cancel the discharge and arrange for transfer.. 07/09 18:38 Order name: Acetaminophen; Complete Time: 20:13 kb 07/09 18:38 Order name: Basic Metabolic Panel; Complete Time: 20:13 kb 07/09 18:38 Order name: CBC with Diff; Complete Time: 20:13 kb 07/09 18:38 Order name: ETOH Level; Complete Time: 19:55 kb 07/09 18:38 Order name: Hepatic Function; Complete Time: 20:13 kb 07/09 18:38 Order name: PT-INR; Complete Time: 19:50 kb 07/09 18:38 Order name: Ptt, Activated; Complete Time: 19:50 kb 07/09 18:38 Order name: Salicylate; Complete Time: 19:55 kb 07/09 18:38 Order name: Urine Drug Screen; Complete Time: 00:06 kb 07/09 18:46 Order name: SARS RAPID; Complete Time: 20:13 kb 07/09 23:31 Order name: Urine Dipstick-Ancillary; Complete Time: 23:31 EDMS 07/09 18:38 Order name: EKG - Nurse/Tech; Complete Time: 19:18 kb 07/09 18:38 Order name: IV Saline Lock; Complete Time: 19:33 kb 07/09 18:38 Order name: Labs collected and sent; Complete Time: 19:33 kb 07/09 18:38 Order name: Suicide Precautions; Complete Time: 18:58 kb 07/09 18:38 Order name: Suicide Screening ([place]); Complete Time: 18:58 kb 07/10 07:33 Order name: Diet Finger Food; Complete Time: 07:33 ko1 07/10 10:49 Order name: Diet Finger Food; Complete Time: 10:50 kj1 07/10 17:24 Order name: Diet Finger Food; Complete Time: 17:25 ko1 07/11 08:37 Order name: Diet Finger Food; Complete Time: 08:38 mm9 07/11 11:45 Order name: Diet Finger Food; Complete Time: 11:46 db 07/11 13:38 Order name: Diet Finger Food; Complete Time: 13:39 db 07/09 18:38 Order name: Urine Dipstick-Ancillary (obtain specimen); Complete Time: 01:41 kb EC/14 22:50 Rate is 105 beats/min. Rhythm is regular. QRS [place] is Normal. ID interval is normal at kb 130 msec. QRS interval is normal at 88 msec. QT interval is prolonged at 510 msec. Administered Medications: 20:42 Drug: NS 0.9% 1000 ml Route: IV; Rate: 1000 ml; Site: left hand; jb4 22:00 Follow up: Response: No adverse reaction; IV Status: Completed infusion; IV Intake: jb4 1000ml 20:42 Drug: Potassium Chloride 20 mEq Route: PO; jb4 21:10 Follow up: Response: No adverse reaction [facility] 07/10 00:09 Drug: NS 0.9% 1000 ml Route: IV; Rate: 1000 ml; Site: left hand; jb4 01:00 Follow up: Response: No adverse reaction; IV Status: Completed infusion; IV Intake: jb4 1000ml 21:35 Drug: Geodon (ziprasidone) 20 mg Route: IM; Site: left vastus lateralis; ha1 22:05 Follow up: Response: No adverse reaction; RASS: Alert and Calm (0) ha1 21:39 Drug: Ativan (LORazepam) 2 mg Route: IVP; Site: left hand; ha1 22:00 Follow up: Response: No adverse reaction; RASS: Alert and Calm (0) ha1 22:05 Follow up: Response: No adverse reaction; RASS: Alert and Calm (0) ha1 16 11:57 Drug: Ativan (LORazepam) 1 mg Route: PO; db 13:38 Follow up: Response: No adverse reaction db 13:40 Follow up: Response: No adverse reaction; Anxiety decreased db 17:28 Drug: Ativan (LORazepam) 1 mg Route: IVP; Site: left hand; db 17:46 Follow up: Response: No adverse reaction; Anxiety decreased db Disposition: 16:18 Co-signature as Attending Physician, Isaac Sam MD. rt Disposition Summary: 07/11/22 16:41 Transfer Ordered Transfer Location: Psych Facility(07/11/22 16:41) rt Reason: Higher level of care(07/11/22 16:41) rt Condition: Stable(07/11/22 16:41) rt Problem: an acute exacerbation(07/11/22 16:41) rt Symptoms: have improved(07/11/22 16:41) rt Accepting Physician: Dr. Zepeda [facility](07/11/22 18:17) db Diagnosis - Adjustment disorder with anxiety(07/11/22 16:41) rt Forms: - Medication Reconciliation Form rt - SBAR form rt Signatures: Dispatcher [employer] EDBeatris Gonzalez, CIRCUS TRAIN SUPERVISOR-C CIRCUS TRAIN SUPERVISOR-Darren Kee MD MD cha Bryson, James RN RN [id number] Adriana Abdul RN RN ap3 Jennifer Avalos Heidy, RN RN ha1 Eliza Ibsell, RN RN Isaac Decker MD MD rt Corrections: (The following items were deleted from the chart) 16:15 07/09 23:48 Dr kb rt 07/11 16:15 07/09 23:48 Psych Facility kb rt 07/11 16:15 07/09 23:48 Higher level of care kb rt 07/11 16:15 07/09 23:48 Stable kb rt 07/11 16:15 07/09 23:48 new kb rt 07/11 16:15 07/09 23:48 are unchanged kb rt 07/11 16:15 1214 23:48 Suicidal ideations kb rt 1216 16:40 16:15 Home rt rt 16:40 16:15 an acute exacerbation rt rt 16:40 16:15 have improved rt rt 16:40 16:15 Stable rt rt 16:40 16:15 Adjustment disorder with anxiety rt rt 17:48 16:41 Dr. farley eb 18:17 17:48 Dr. Zepeda [facility] eb db
[2022-07-10 00:06] LABS: Barbiturates NEGATIVE (NEGATIVE); Benzodiazepines POSITIVE (NEGATIVE); Cocaine NEGATIVE (NEGATIVE); METHAMPHETAM POSITIVE (NEGATIVE); Methadone NEGATIVE (NEGATIVE); Opiates NEGATIVE (NEGATIVE); Phencyclidine NEGATIVE (NEGATIVE); THC Cannibis POSITIVE (NEGATIVE)
[2022-07-10] MEDS ORDERED: NA CHLORIDE 0.9% 1,000 ML ONE (00:09)
[2022-07-10] MEDS ORDERED: LORazepam 2 MG/ML VIAL ONE (21:25)
[2022-07-10] MEDS ORDERED: WATER FOR INJ,STERILE 10 ML ONE (21:26)
[2022-07-10] MEDS ORDERED: ZIPRASIDONE MESYLA 20 MG/VIAL IM ONE (21:26)
[2022-07-11] MEDS ORDERED: LORAZEPAM 1 MG TABLET ONE (11:55)
[2022-07-11] MEDS ORDERED: LORazepam 2 MG/ML VIAL ONE (17:16)
[2022-07-11 18:52] VITALS: BP 119/72; TEMP 98.3; O2SAT 96
== END 2022-07-11 18:17 ==
LOC: ER 18:18
DX: F43.22 Adjustment disorder with anxiety (principal); Z20.822 Contact with and (suspected) exposure to COVID-19; I10 Essential (primary) hypertension
CPT/HCPCS: 96361; 85025; 80048; 36415; 80320; 80329 ×2; 85610; 80076; 85730; 81003; 80307; 96372; 96374; 99285; 87811; J7030

== ENCOUNTER 2022-08-19 09:51 | Emergency (ER) | payer OTHER ==
--- OUTSIDE RECORDS SUMMARY | 2022-08-19 09:54 | XMS REPORT | Continuity of Care Document ---
:1990 Author Organization [facility] t Address [address] [place] [address] Care Team Providers Name Role Phone Asked, No Pcp Primary Care Physician Unavailable LOURDES GREGORY Attending Clinician Unavailable FANNIE LAKHANI Attending Clinician Unavailable HUNTER BARBOUR Attending Clinician Unavailable Joseph NUÑEZ, Duglas Walker Attending Clinician [phone] ADRI FONG Attending Clinician Unavailable JUVENAL DAILEY Attending Clinician Unavailable Koudela_A Attending Clinician Unavailable Nguyen_Tho Attending Clinician Unavailable CIARA ELIAS Admitting Clinician Unavailable MD DUGLAS RUIZ Admitting Clinician Miranda vailable Koudela_A Admitting Clinician Unavailable Nguyen_Tho Admitting Clinician Unavailable Payers Payer Name Policy Type Policy Number Effective Date Expiration Date S ource [facility] [id number] 2020 00:00:00 [facility] [id number] 2020 GROUP (PPO) 00:00:00 [facility] [id number] [facility] [id number] 2011 00:00:00 Problems This patient has no known problems. Allergies, Adverse Reactions, Alerts This patient has no known allergies or adverse reactions. Social History Social Habit Start Date Stop Date Quantity Comments Source History of Chews Tobacco Mandaen tobacco use Hospital Alcohol intake 2022-01-08 2022-01-08 Current drinker [facility] 00:00:00 00:00:00 of alcohol Hospital (finding) Tobacco use and 2019-10-23 2019-10-23 User of smokeless [facility] exposure 00:00:00 00:00:[address] [facility] Alcohol Comment 2018-02-23 2018-02-23 Beer Mandaen 00:00:00 00:00:00 Hospital Sex Assigned At [birth year] Mandaen 00:00:00 00:00:00 Hospital Smoking Status Start Date Stop Date Source Light Tobacco Smoker [facility] Smokes tobacco daily 2019-10-23 00:00:00 [facility] Medications Ordered Filled Start Stop Current Ordering Indication Dosage Frequency Signature Comments Components Source Medication Medication Date Date Medication? Clinician (SIG) Name Name venlafaxine 2021- No 75mg QD Take 1 [facility] X[facility] (Effexor 01-[address] XR) 75 MG 00:00: 04:59 (75 mg Hospi ta 24 hr 00 :00 total) by l capsule mouth daily for 30 days. gabapentin No 400mg Q.[id number] Take 1 [facility] (Neurontin) 01-[id number] 400 mg 00:00: 04:59 3D [...] for 30 days. gabapentin 2021-2021- No 400mg Q.[id number] Take 1 [facility] (Neurontin) 01-[id number] 400 mg 00:00: 04:59 3D [...] for 30 days. gabapentin 2021-2021- No 400mg Q.[id number] Take 1 [facility] (Neurontin) 01-[id number] 400 mg 00:00: 04:59 3D [...] 30 days. gabapentin 2021-0 2021- No 400mg Q.[id number] Take 1 [facility] (Neurontin) 01-[id number] 400 mg 00:00: 04:59 3D [...] for 30 days. gabapentin 2021-2021- No 400mg Q.[id number] Take 1 [facility] (Neurontin) 01-[id number] 400 mg 00:00: 04:59 3D [...] Source BP Diastolic 2021-06-28 00:00:00 79 mm[Hg] [facility] BP Systolic 2021-06-28 00:00:00 137 mm[Hg] [facility] Body Weight 2021-06-28 00:00:00 3575 [oz_av] [facility] Systolic blood 2022-01-08 15:59:24 105 mm[Hg] [facility] pressure Diastolic blood 2022-01-08 15:59:24 64 mm[Hg] [facility] pressure Heart rate 2022-01-08 15:59:24 82 /min [facility] Body temperature 2022-01-08 15:59:24 36.61 Yamilex [facility] Respiratory rate 2022-01-08 15:59:24 18 /min [facility] Oxygen saturation in 2022-01-08 15:59:24 97 /min [facility] Arterial blood by Pulse oximetry Body height 2022-01-08 10:07:[address] [facility] Body weight 2022-01-08 10:07:[address] [facility] BMI 2022-01-08 10:07:00 30.68 kg/m2 [facility] Procedures Procedure Date / Time Performing Clinician Source Performed URINE DRUGS OF ABUSE 2022-01-08 14:57:00 Duglas Ruiz [facility] SCREEN [facility] COVID-19 QUALITATIVE 2022-01-08 13:36:00 Duglas Ruiz [facility] RT-PCR [facility] AMMONIA LEVEL 2022-01-08 12:20:[address] [facility] CBC WITH PLATELET AND 2022-01-08 12:04:00 Duglas Ruiz [facility] DIFFERENTIAL [facility] PARTIAL THROMBOPLASTIN 2022-01-08 12:04:[address] [facility] TIME (PTT) [facility] PROTHROMBIN TIME WITH 2022-01-08 12:04:00 Duglas Ruiz [facility] INR [facility] COMPREHENSIVE METABOLIC 2022-01-08 12:04:00 Duglas Ruiz [facility] PANEL [facility] ALCOHOL LEVEL, BLOOD 2022-01-08 12:04:00 Duglas Ruiz [facility] ESTIMATED GFR 2022-01-08 12:04:[address] [facility] ECG 12-LEAD 2022-01-08 11:59:[address] [facility] POC GLUCOSE 2022-01-08 11:53:[address] [facility] ECG ED PRELIMINARY 2022-01-08 11:29:43 Duglas Ruiz [facility] INTERPRETATION [facility] Plan of Care Planned Activity Planned Date Details Comments Source Future Scheduled 2022-07-12 Pneumococcal Vaccine: [facility] Test 00:15:10 Pediatrics (0 to 5 Years) and At-Risk Patients (6 to 64 Years) (1 - PCV) [code = Pneumococcal Vaccine: Pediatrics (0 to 5 Years) and At-Risk Patients (6 to 64 Years) (1 - PCV)] Future Scheduled 2022-07-12 Hepatitis C screening [facility] Test 00:15:10 (procedure) [code = 864269539] Future Scheduled 2022-07-12 COVID-19 VACCINE (2 - [facility] Test 00:15:10 Pfizer series) [code = COVID-19 VACCINE (2 - Pfizer series)] Future Scheduled 2022-07-12 INFLUENZA VACCINE [facility] Test 00:15:10 [code = INFLUENZA VACCINE] Future Scheduled 2022-05-31 Pneumococcal Vaccine: [facility] Test 12:18:02 Pediatrics (0 to 5 Years) and At-Risk Patients (6 to 64 Years) (1 - PCV) [code = Pneumococcal Vaccine: Pediatrics (0 to 5 Years) and At-Risk Patients (6 to 64 Years) (1 - PCV)] Future Scheduled 2022-05-31 Hepatitis C screening [facility] Test 12:18:02 (procedure) [code = 394431387] Future Scheduled 2022-05-31 COVID-19 VACCINE (2 - [facility] Test 12:18:02 Pfizer series) [code = COVID-19 VACCINE (2 - Pfizer series)] Future Scheduled 2022-05-31 INFLUENZA VACCINE Method [facility] Test 12:18:02 [code = INFLUENZA VACCINE] Future Scheduled 2022-03-27 Pneumococcal Vaccine: [facility] Test 16:00:51 Pediatrics (0 to 5 Years) and At-Risk Patients (6 to 64 Years) (1 - PCV) [code = Pneumococcal Vaccine: Pediatrics (0 to 5 Years) and At-Risk Patients (6 to 64 Years) (1 - PCV)] Future Scheduled 2022-03-27 Hepatitis C screening [facility] Test 16:00:51 (procedure) [code = 835346486] Future Scheduled 2022-03-27 COVID-19 VACCINE (2 - [facility] Test 16:00:51 Pfizer series) [code = COVID-19 VACCINE (2 - Pfizer series)] Future Scheduled 2022-03-27 INFLUENZA VACCINE Method [facility] Test 16:00:51 [code = INFLUENZA VACCINE] Future Scheduled 2022-03-27 Pneumococcal Vaccine: [facility] Test 16:00:51 Pediatrics (0 to 5 Years) and At-Risk Patients (6 to 64 Years) (1 - PCV) [code = Pneumococcal Vaccine: Pediatrics (0 to 5 Years) and At-Risk Patients (6 to 64 Years) (1 - PCV)] Future Scheduled 2022-03-27 Hepatitis C screening [facility] Test 16:00:51 (procedure) [code = 108713707] Future Scheduled 2022-03-27 COVID-19 VACCINE (2 - [facility] Test 16:00:51 Pfizer series) [code = COVID-19 VACCINE (2 - Pfizer series)] Future Scheduled 2022-03-27 INFLUENZA VACCINE Method [facility] Test 16:00:51 [code = INFLUENZA VACCINE] Future Scheduled 2022-03-27 Pneumococcal Vaccine: [facility] Test 16:00:51 Pediatrics (0 to 5 Years) and At-Risk Patients (6 to 64 Years) (1 - PCV) [code = Pneumococcal Vaccine: Pediatrics (0 to 5 Years) and At-Risk Patients (6 to 64 Years) (1 - PCV)] Future Scheduled 2022-03-27 Hepatitis C screening [facility] Test 16:00:51 (procedure) [code = 201393371] Future Scheduled 2022-03-27 COVID-19 VACCINE (2 - [facility] Test 16:00:51 Pfizer series) [code = COVID-19 VACCINE (2 - Pfizer series)] Future Scheduled 2022-03-27 INFLUENZA VACCINE Method [facility] Hospital Test 16:00:51 [code = INFLUENZA VACCINE] Diagnostic Test 2021-06-28 SARS CoV 2 RNA [facility] Pending 00:00:00 (COVID-19), QL, Group manager hospice-PCR, respiratory specimen [code = SARS CoV 2 RNA (COVID-19), QL, manager hospice-PCR, respiratory specimen] Future Scheduled COVID-19 VACCINE (1) [facility] Test [code = COVID-19 VACCINE (1)] Future Scheduled Hepatitis C screening [facility] Test (procedure) [code = 174664293] Future Scheduled INFLUENZA VACCINE [facility] Test [code = INFLUENZA VACCINE] Encounters Start End Encounter Admission Attending Care Care Encounter Source Date/Time Date/Time Type Type Clinicians Facility Department ID 2022-07-10 Outpatient [facility] [id number] [place] 01:41:09 [id number] [facility] 2022-06-13 [facility] [id number] [place] 13:58:24 [id number] [place] 2022-01-21 Inpatient TEXANA [facility] [id number] [place] 17:23:15 [id number] [place] 2021-12-04 Inpatient 1 COLT [facility] [id number] H arris 06:54:00 [facility] 2021-12-03 Outpatient [facility] [id number] [place] 11:49:14 [id number] [facility] 2022-04-21 2022-04-21 Outpatient KAR, [facility] [id number] [place] 09:54:46 23:59:00 [facility] 2022-04-18 2022-04-18 Outpatient Rubin [facility] [id number] [place] 15:46:00 15:46:00 Michelle [id number] [facility] ical [address] [place] [address] 2022-01-21 2022-01-21 Outpatient ANGLE, [facility] [id number] [place] 00:00:00 00:00:00 [facility] 2022-01-08 2022-01-08 Emergency Ruiz, 1.2.840.1 [id number] [facility] 05:41:00 13:53:[address] 3.430.2.7 Hospit a Dasharathbh .3.501023 l ai .8 2022-01-08 2022-01-08 Emergency Ruiz, 1.2.840.1 [id number] [id number] [facility] 05:41:00 13:53:[address] 3.430.2.7 Hospit a Dasharathbh .3.952968 l ai .8 2022-01-08 2022-01-08 Travel 1.2.840.1 1.2.370.048 [id number] [facility] 00:00:00 00:00:[address] 3.430.2.7 0.2.7.3.698 Ho spita .3.839994 084.8 l .8 2022-01-08 2022-01-08 Travel 1.2.840.1 1.2.812.644 [id number] [facility] 00:00:00 00:00:[address] 3.430.2.7 0.2.7.3.698 Ho spita .3.495298 084.8 l .8 2021-12-25 2021-12-25 Outpatient [facility] [id number] [place] 15:35:29 16:13:31 [facility] 2021-12-04 2021-12-09 Inpatient [facility] [id number] [place] 06:54:00 15:22:00 [facility] 2021-12-02 2021-12-04 Emergency [facility] [id number] [place] 13:58:00 06:45:00 [facility] 2021-12-02 2021-12-02 Emergency 1 [facility] [id number] [place] 13:58:00 13:58:00 [facility] 2021-07-04 2021-07-04 Outpatient Koudela_A G [facility] [id number] [place] 02:37:00 02:37:00 [id number] 2021-06-28 2021-06-28 Outpatient Koudela_A MMG [facility] [id number] [place] 11:34:00 11:34:00 [facility] 2021-06-28 2021-06-28 Outpatient Radha ROSASHOP [id number] [place] 09:22:00 09:22:00 [id number] 2021-06-28 2021-06-28 Suly [facility] [place] - [id number] M atagor 00:00:00 00:00:00 Discovery Alejandra da PA-C: [facility] [place] - [address], [facility] [place] [address] , Ph. 2011-09-26 2011-09-26 Emergency [facility] [id number] [place] 15:23:59 15:23:59 Health Results Test Description Test [...] with ECG of 23-APR-2018 01:52,-QT has lengthened- [facility] [id number] 03:31:50 Test Item Value Reference Range Interpretation [...] lly Signed By Mattie Hall MD Min ([id number]) on 01/08/2022 10:31:[address]2022-06-16 03:31:50 Test Item Value Reference Range Interpretation [...] lengthened-Electronica lly Signed By Mattie Hall MD ([id number]) on 01/08/2022 10:31:[address]2022-06-16 03:31:50 Test Item Value Reference Range Interpretation [...] lly Signed By Mattie Hall MD Min ([id number]) on 01/08/2022 10:31:[address]2022-06-16 03:31:50 Test Item Value Reference Range Interpretation [...] Hall MD ([id number]) on 01/08/2022 10:31:22 [facility] [Presence] in Respiratory specimen by BJ with probe [id number] 13:38:07 Test Item Value Reference Range Interpretation Comments SARS-CoV-2 (COVID-19) RNA Not detected [Presence] in Respiratory specimen by BJ with probe detection (test code = 31213-9) Whether patient is employed in a Unknown healthcare setting (test code = 46282-5) Whether the patient has symptoms Unknown related to condition of interest (test code = 45003-2) Whether the patient was Unknown hospitalized for condition of interest (test code = 76654-7) Whether the patient was admitted Unknown to intensive care unit (ICU) for condition of interest (test code = 53074-4) Whether patient resides in a Unknown congregate care setting (test code = 42486-4) status (test code = Unknown 29004-5) Date and time of symptom onset Unknown (test code = 32269-8) [facility]2022-06-15 11:55:00 Test Item Value Reference Range Interpretation Comments POC glucose (test code 101 mg/dL 65-99 H Opera tor Name: = 90951-7) Teodora salinas ID: [id number] able: HMW Notified stone derrickman and rigger Interpretation Abnormal (test code = 23682-1) [facility]2022-06-15 11:55:00 Test Item Value Reference Range Interpretation Comments POC glucose (test code 101 mg/dL 65-99 H Opera tor Name: = 02051-2) Teodora salinas ID: [id number] able: HMW Notified stone derrickman and rigger Interpretation Abnormal (test code = 81151-0) [facility]2022-06-15 11:55:00 Test Item Value Reference Range Interpretation Comments POC glucose (test code 101 mg/dL 65-99 H Opera tor Name: = 06733-9) Teodora salinas ID: [id number] able: HMW Notified stone derrickman and rigger Interpretation Abnormal (test code = 31654-0) [facility] [id number] 11:55:00 Test Item Value Reference Range Interpretation Comments POC glucose (test code 101 mg/dL 65-99 H Opera tor Name: = 93431-1) Teodora salinas ID: [id number] able: HMW Notified stone derrickman and rigger Interpretation Abnormal (test code = 28546-9) [facility] [id number] 11:55:00 Test Item Value Reference Range Interpretation Comments POC glucose (test code 101 mg/dL 65-99 H Opera tor Name: = 00559-2) Teodora salinas ID: [id number] able: HMW Notified stone derrickman and rigger Interpretation Abnormal (test code = 20878-5) [facility] [place] [place] [id number] 09:26:36 Test Item Value Reference Range Interpretation Comments T pallidum Ab Ser Ql Aggl (test NEGATIVE Negative, Equivocal code = 42065-2) Reagin+T pallidum IgG+IgM NEGATIVE Negative SerPl-Imp (test code = 23788-2) HHSHIV 1+2 Ab+HIV1 p24 Ag SerPl Ql [id number] 08:08:27 Test Item Value Reference Range Interpretation Comments HIV 1+2 Ab+HIV1 p24 Ag SerPl Ql [place] NEGATIVE Negative (test code = 20490-6) [id number] RNA Resp Ql [id number] 16:27:49 Test Item Value Reference Range Interpretation Comments Hospitalized? (test No code = 85279-1) ICU? (test code = No 95955-4) Symptomatic as defined No by CDC? (test code = 08253-9) Employed in Unknown Healthcare? (test code = 49176-9) Resident in a Unknown congregate care setting (including nursing homes, residential care for people with intellectual and developmental disabilities, psychiatric treatment facilities, group homes, board and care homes, homeless snf, foster care or other): (test code = 66199-0) SARS-CoV-2 RNA Resp Ql NOT DETECTED Not Detected INTER PRETATION: No BJ+probe (test code = detec table levels 00352-9) of SARS-CoV-2 Coronavirus (COVID-19) were present in [...] its performance characteristics were verified by the [facility] molecular diagnostics laboratory and is authorized for clinical diagnostic use. This laboratory is certified under the Clinical Laboratory Improvement Amendments (CLIA) as qualified to perform high complexity clinical laboratory testing.HHSHIV 1+2 Ab+HIV1 p24 Ag SerPl Ql [id number] 16:25:27 Test Item Value Reference Range Interpretation Comments HIV 1+2 Ab+HIV1 p24 Ag SerPl Ql [place] NEGATIVE Negative (test code = 41984-0) [facility]
[2022-08-19] MEDS ORDERED: NA CHLORIDE 0.9% 2,000 ML ONE (10:18)
[2022-08-19 10:23] LABS: Absolute Lymphocytes (CBC) 2.5 K/uL (0.7-4.9); Hematocrit 45.9 % (39.6-49.0); Lymphocytes % 24.8 % (15.3-44.8); MCV 87.5 fL (80-100); MPV 8.1 fL (7.6-11.3); RBC Red Blood Cell Count 5.25 M/uL (4.33-5.43)
[2022-08-19 10:50] LABS: SARS-CoV-2 Antigen Rapid Res Negative (Negative)
[2022-08-19 11:29] LABS: Albumin 4.3 g/dL (3.4-5.0); BUN Blood Urea Nitrogen 8 mg/dL (7-18); Bicarbonate 24 mmol/L (21-32); Glucose Level 92 mg/dL (74-106); Potassium 3.6 mmol/L (3.5-5.1); Sodium Level 134 mmol/L (136-145)
[2022-08-19 11:44] LABS: ALT/SGPT 34 U/L (16-61); AST/SGOT 23 U/L (15-37); Alkaline Phosphatase 100 U/L (45-117); Bilirubin Direct 0.2 mg/dL (0-0.2); Bilirubin Total 0.7 mg/dL (0.2-1.0); Glomerular Filtration Rate 106 ml/min (=/>90); Protein, Total 8.3 g/dL (6.4-8.2)
[2022-08-19] MEDS ORDERED: ONDANSETRON 4 MG/2 ML VIAL ONE (11:57)
[2022-08-19 12:03] LABS: Protime INR 1.07
--- NOTE | 2022-08-19 12:49 | ER ---
Nurse's Notes [facility] Name: Johann Lopez Age: 32 yrs Sex: Male : 1990 Arrival Date: 08/19/2022 Time: 09:52 Bed 3 Private MD: Diagnosis: Auditory hallucinations;Unspecified psychosis not due to a substance or known physiological condition;Klonopin overdose Presentation: 08/19 10:02 Chief complaint: Patient states: Hearing voices, took 41 Klonipin about 0930 this jl7 morning. Pt's Mom, Alyssa, reports voices were telling him to take the meds because "He was going to anyway." Alyssa reports possible IV drug use this weekend with meth. Pt denies SI, states "I don't want to hurt myself. I don't want to .". Coronavirus screen: At this time, the client does not indicate any symptoms associated with coronavirus-19. Ebola Screen: No symptoms or risks identified at this time. Initial Sepsis Screen: Does the patient meet any 2 criteria? No. Patient's initial sepsis screen is negative. Does the patient have a suspected source of infection? No. Patient's initial sepsis screen is negative. Risk Assessment: Do you want to hurt yourself or someone else? Patient reports no desire to harm self or others. Onset of symptoms is unknown. 10:02 Method Of Arrival: Ambulatory jl7 10:02 Acuity: NEW 2 jl7 Triage Assessment: 10:02 General: Appears in no apparent distress. uncomfortable, Behavior is anxious, crying. jl7 Pain: Denies pain. Neuro: Level of Consciousness is awake, alert, obeys commands, Oriented to person, place, time, situation. Cardiovascular: Patient's skin is warm and dry. Respiratory: Airway is patent Respiratory effort is even, unlabored, Respiratory pattern is regular, symmetrical. Derm: Skin is pink, warm \\T\\ dry. Historical: - Allergies: :58 No Known Allergies; jl7 - PMHx: :58 Hypertensive disorder; IV DRUG ABUSE; Bipolar disorder; jl7 - PSHx: : Unable to Obtain; jl7 - Immunization history:: Client reports receiving the 1st dose of the Covid vaccine. - Social history:: Smoking status: Patient reports the use of cigarette tobacco products, denies chronic smoking, but will smoke occasionally, Patient uses IV drugs, amphetamines. Screenin:09 [facility] ED Fall Risk Assessment (Adult) History of falling in the last 3 months, ph including since admission No falls in past 3 months (0 pts). Abuse screen: Denies threats or abuse. Denies injuries from another. Nutritional screening: No deficits noted. Tuberculosis screening: No symptoms or risk factors identified. Assessment: 10:06 Reassessment: Poison control case # [id number], Brian, reports symptomatic treatment, jl7 possible hypotension- treat with fluids, obs at least 6 hours. No Romazicon due to decreased seizure threshold. 10:28 General: Appears in no apparent distress. Behavior is drowsy, quiet. Pain: Denies pain. ph Neuro: Level of Consciousness is lethargic, obtunded, Oriented to person, place. Cardiovascular: Capillary refill < 3 seconds in bilateral fingers Patient's skin is warm and dry. Respiratory: Airway is patent Respiratory effort is even, relaxed. GI: No signs and/or symptoms were reported involving the gastrointestinal system. Derm: Skin is pink, warm \\T\\ dry. Musculoskeletal: Circulation, motion, and sensation intact. Range of motion: intact in all extremities. 11:30 Reassessment: Pt sleeping w/ intermittent snoring noted, Spo2 maintained at 95% or ph greater, awakens briefly to painful stimuli. 12:30 Reassessment: Patient appears in no apparent distress at this time. No changes from ph previously documented assessment. Family at bedside, VSS. 13:30 Reassessment: Patient appears in no apparent distress at this time. No changes from ph previously documented assessment. Patient and/or family updated on plan of care and expected duration. Pain level reassessed. 14:30 Reassessment: Patient appears in no apparent distress at this time. No changes from ph previously documented assessment. Patient and/or family updated on plan of care and expected duration. Pain level reassessed. 16:00 Reassessment: Patient appears in no apparent distress at this time. No changes from ph previously documented assessment. Patient and/or family updated on plan of care and expected duration. Pain level reassessed. 17:31 Reassessment: Patient appears in no apparent distress at this time. Patient and/or ph family updated on plan of care and expected duration. Pain level reassessed. Pt awakened to verbal stimuli, opened eyes and asked, " Where am I?" Explained to pt that he was in the ED for overdose, pt denies nausea or pain at this time, states that he is hungry. 18:00 Reassessment: Fathers info: Jim Lopez . ph 18:35 Reassessment: Patient appears in no apparent distress at this time. Patient and/or ph family updated on plan of care and expected duration. Pain level reassessed. Pt asleep, awakens to verbal stimuli, VSS, pt denies SI at this time. 19:00 Reassessment: Pt resting in bed with eyes closed, respirations are even and unlabored jb4 with no s/s of pain or distress noted. 20:00 Reassessment: Patient appears in no apparent distress at this time. No changes from jb4 previously documented assessment. Patient and/or family updated on plan of care and expected duration. Pain level reassessed. 21:00 Reassessment: Patient appears in no apparent distress at this time. No changes from jb4 previously documented assessment. Patient and/or family updated on plan of care and expected duration. Pain level reassessed. 22:00 Reassessment: Patient appears in no apparent distress at this time. Patient and/or jb4 family updated on plan of care and expected duration. Pain level reassessed. Patient is alert, oriented x 3, equal unlabored respirations, skin warm/dry/pink. 23:00 Reassessment: Patient appears in no apparent distress at this time. Patient and/or jb4 family updated on plan of care and expected duration. Pain level reassessed. Patient is alert, oriented x 3, equal unlabored respirations, skin warm/dry/pink. Overdose: 18:37 Elizabeth Suicide Severity Screening: "In the past month, have you wished you were ph or wished you could go to sleep and not wake up?" Patient responds "yes." Based off client's responses, additional C-SSRS screening questions required. "In the past month, have you actually had any thoughts of killing yourself?" Patient responds "yes." Based off client's responses, additional C-SSRS screening questions required. "In your lifetime, have you ever done anything, started to do anything, or prepared to do anything to end your life?" Patient responds "yes." Patient reports suicidal intent within 3 past months. Vital Signs: 10:02 BP 121 / 98; Pulse 118; Resp 15; Temp 97.7; Pulse Ox 98% ; jl7 10:59 BP 103 / 68; Pulse 98; Resp 14; Pulse Ox 93% on R/A; ph 12:06 BP 112 / 82; Pulse 98; Resp 16; Pulse Ox 95% on R/A; ph 13:00 BP 108 / 79; Pulse 95; Resp 14; Pulse Ox 97% on R/A; ph 13:47 BP 107 / 73; Pulse 91; Resp 14; Pulse Ox 96% on R/A; ph 15:00 BP 110 / 72; Pulse 81; Resp 18; Pulse Ox 98% on R/A; ph 16:00 BP 110 / 78; Pulse 90; Resp 18; Pulse Ox 94% on R/A; ph 17:34 BP 107 / 79; Pulse 95; Resp 18; Pulse Ox 96% on R/A; ph Donya Coma Score: 10:59 Eye Response: to pain(2). Verbal Response: confused(4). Motor Response: withdraws from ph pain(4). Total: 10. 12:06 Eye Response: to pain(2). Verbal Response: inappropriate words(3). Motor Response: ph withdraws from pain(4). Total: 9. 13:00 Eye Response: to pain(2). Verbal Response: inappropriate words(3). Motor Response: ph withdraws from pain(4). Total: 9. 13:47 Eye Response: to pain(2). Verbal Response: inappropriate words(3). Motor Response: ph withdraws from pain(4). Total: 9. 15:00 Eye Response: to pain(2). Verbal Response: inappropriate words(3). Motor Response: ph localizes pain(5). Total: 10. 16:00 Eye Response: to pain(2). Verbal Response: inappropriate words(3). Motor Response: ph localizes pain(5). Total: 10. 17:34 Eye Response: to voice(3). Verbal Response: confused(4). Motor Response: obeys ph commands(6). Total: 13. ED Course: 09:52 Patient arrived in ED. rg4 09:53 Elsy Dubon RN is Primary Nurse. ph 09:58 Jennifer Larsen PA is PHCP. en 09:58 George Magdaleno DO is Attending Physician. en 10:02 Arm band placed on right wrist. jl7 10:05 Triage completed. jl7 10:05 Inserted saline lock: 20 gauge in right antecubital area, using aseptic technique. ph Blood collected. 10:08 Patient has correct armband on for positive identification. Placed in gown. Bed in low ph position. Call light in reach. Side rails up X2. Client placed on continuous cardiac and pulse oximetry monitoring. NIBP monitoring applied. Warm blanket given. 10:09 EKG done, by ED staff. rv1 11:00 Missed attempt(s): 22 gauge in left hand. Bleeding controlled, band aid applied, ph catheter tip intact. 18:01 No provider procedures requiring assistance completed. ph 23:32 faxed patient information to all available [facility] facilities. 2 08/20 00:43 administrative approval given by Salvatore Ordoñez/ patient has been accepted to [address]/ Dr. Elaine accepted the patient in transfer. 02:05 IV discontinued, intact, bleeding controlled, No redness/swelling at site. Pressure kd3 dressing applied. Administered Medications: 08/19 10:21 Drug: NS 0.9% 1000 ml Route: IV; Rate: 1000 ml; Site: right antecubital; ph 14:24 Follow up: Response: No adverse reaction; IV Status: Completed infusion; IV Intake: ph 1000ml 12:02 Drug: Zofran (Ondansetron) 2 mg Route: IVP; Site: right antecubital; kr3 14:24 Follow up: Response: No adverse reaction ph 14:23 Drug: NS 0.9% 1000 ml Route: IV; Rate: 125 ml/hr; Site: right antecubital; ph 08/20 02:05 Follow up: IV Status: Completed infusion; IV Intake: 500ml kd3 Medication: 08/19 12:07 VIS not applicable for this client. ph Intake: 14:24 IV: 1000ml; Total: 1000ml. ph 08/20 02:05 IV: 500ml; Total: 1500ml. kd3 Outcome: 08/19 12:48 ER care complete, transfer ordered by . ms3 08/20 02:05 Transferred by ground EMS kd3 Condition: stable Discharge instructions given to patient, Instructed on the need for transfer. 02:06 Patient left the ED. kd3 Signatures: Elsy Dubon, RN RN cr Ayon, Tamera rg4 Brendan Gale RN RN jb4 Radha Mcfadden RN RN jl7 Luis Rolle mw2 George Magdaleno DO DO ms3 Brigida Elkins RN RN kd3 Jennifer Larsen PA PA en Reid, Kelley RN RN kr3 Nikki Hood 1
--- NOTE | 2022-08-19 12:49 | EDPHYS ---
Physician Documentation [facility] Name: Johann Lopez Age: 32 yrs Sex: Male : 1990 Arrival Date: 08/19/2022 Time: 09:52 Bed 3 Private MD: ED Physician George Magdaleno HPI: 08/19 10:00 This 32 yrs old Male presents to ER via Unassigned with complaints of Overdose. ms3 10:00 32-year-old male presents with his mother after hearing voices that were telling him he ms3 was going to . Patient states he was supposed to trust the voices. Patient states things became chaotic and his head causing him to take 40 Klonopin. Patient states the tablets were 1 mg tablets. Patient states he took the medication 15 minutes prior to arrival. Patient's mother states he called her telling her he was hearing voices today. Patient's mother states when she arrived patient was paranoid people were out to kill her and was convinced his truck was regular the bomb. Patient's mother notes patient does have a history of psychosis and has received treatment at [facility].. Historical: - Allergies: 09:58 No Known Allergies; jl7 - PMHx: 09:58 Hypertensive disorder; IV DRUG ABUSE; Bipolar disorder; jl7 - PSHx: 09:58 Unable to Obtain; jl7 - Immunization history:: Client reports receiving the 1st dose of the Covid vaccine. - Social history:: Smoking status: Patient reports the use of cigarette tobacco products, denies chronic smoking, but will smoke occasionally, Patient uses IV drugs, amphetamines. ROS: 10:00 Constitutional: Negative for fever, and chills. Neck: Negative for injury, pain, and ms3 swelling, Cardiovascular: Negative for chest pain, and palpitations. Respiratory: Negative for shortness of breath, cough, wheezing, and pleuritic chest pain, Abdomen/GI: Negative for abdominal pain, nausea, vomiting, diarrhea, and constipation, MS/Extremity: Negative for injury and deformity, Skin: Negative for injury, rash, and discoloration. 10:00 Psych: Positive for anxiety, auditory hallucinations. 10:00 All other systems are negative. Exam: 10:00 Constitutional: This is a well developed, well nourished patient who is awake, alert, ms3 and in no acute distress. Head/Face: Normocephalic, atraumatic. ENT: Nares patent. No nasal discharge, no septal abnormalities noted. Tympanic membranes are normal and external auditory canals are clear. Oropharynx with no redness, swelling, or masses, exudates, or evidence of obstruction, uvula midline. Mucous membranes moist. Neck: Trachea midline, no cervical lymphadenopathy. Supple, full range of motion without nuchal rigidity, or vertebral point tenderness. No Meningismus. Chest/axilla: Normal chest wall appearance and motion. Nontender with no deformity. 10:00 Cardiovascular: Rate: tachycardic, Rhythm: regular, Pulses: no pulse deficits are appreciated, Heart sounds: normal. 10:00 Psych: Behavior/mood is anxious, Affect is animated, Oriented to person, place, time, Patient has no thoughts/intents to harm self or others. Judgement / Insight is impaired. Delusions/hallucinations are present and described as Voices telling him he is going to . 10:50 ECG was reviewed by the Attending Physician. ms3 Vital Signs: 10:02 BP 121 / 98; Pulse 118; Resp 15; Temp 97.7; Pulse Ox 98% ; jl7 10:59 BP 103 / 68; Pulse 98; Resp 14; Pulse Ox 93% on R/A; ph 12:06 BP 112 / 82; Pulse 98; Resp 16; Pulse Ox 95% on R/A; ph 13:00 BP 108 / 79; Pulse 95; Resp 14; Pulse Ox 97% on R/A; ph 13:47 BP 107 / 73; Pulse 91; Resp 14; Pulse Ox 96% on R/A; ph 15:00 BP 110 / 72; Pulse 81; Resp 18; Pulse Ox 98% on R/A; ph 16:00 BP 110 / 78; Pulse 90; Resp 18; Pulse Ox 94% on R/A; ph 17:34 BP 107 / 79; Pulse 95; Resp 18; Pulse Ox 96% on R/A; ph [place] Coma Score: 10:59 Eye Response: to pain(2). Verbal Response: confused(4). Motor Response: withdraws from ph pain(4). Total: 10. 12:06 Eye Response: to pain(2). Verbal Response: inappropriate words(3). Motor Response: ph withdraws from pain(4). Total: 9. 13:00 Eye Response: to pain(2). Verbal Response: inappropriate words(3). Motor Response: ph withdraws from pain(4). Total: 9. 13:47 Eye Response: to pain(2). Verbal Response: inappropriate words(3). Motor Response: ph withdraws from pain(4). Total: 9. 15:00 Eye Response: to pain(2). Verbal Response: inappropriate words(3). Motor Response: ph localizes pain(5). Total: 10. 16:00 Eye Response: to pain(2). Verbal Response: inappropriate words(3). Motor Response: ph localizes pain(5). Total: 10. 17:34 Eye Response: to voice(3). Verbal Response: confused(4). Motor Response: obeys ph commands(6). Total: 13. MDM: 09:53 Patient medically screened. kb 10:02 Differential diagnosis: Ingestion/exposure to klonopin polypharmacy, Substance abuse. ms3 10:42 ED course: Poison control recommends 6 hours observation. If patient becomes ms3 hypotensive they recommend IV fluids. Otherwise symptomatic treatment is recommended. 14:25 ED course: Jody from poison control called to get latest vitals on patient. Case # [id number]. 19:18 Data reviewed: vital signs, nurses notes, lab test result(s), EKG, radiologic studies, ms3 and as a result, I will Transfer patient. Consideration of Admission/Observation Patient to be transferred to psychiatric facility. I considered the following discharge prescriptions or medication management in the emergency department Medications were administered in the Emergency Department. See MAR. Independent interpretation of the following test(s) in the Emergency Department EKG: See my EKG interpretation above monitoring manager: rate is 92 beats/min, Rhythm is normal sinus rhythm, regular, with no ectopy, Interpretation: normal rate, normal rhythm. Historians other than the Patient: Parent: Patient's mother. Transition of care: After a detail discussion of the patient's case, care is transferred to Roland Prescott MD. 22:05 ED course: Pt more alert, standing to urinate without assistance, will initiate rn advanced transfer. . 08/19 09:59 Order name: SARS-COV-2 Antigen Rapid; Complete Time: 11:25 ms3 08/19 09:59 Order name: Urine Drug Screen ms3 08/19 10:25 Order name: Acetaminophen Level; Complete Time: 14:24 EDMS 08/19 10:25 Order name: Alcohol Serum/Plasma; Complete Time: 14:24 EDMS 08/19 10:25 Order name: Basic Metabolic Panel; Complete Time: 14:24 EDMS 08/19 10:25 Order name: CBC with Automated Diff; Complete Time: 11:25 EDMS 08/19 09:59 Order name: EKG; Complete Time: 10:30 ms3 08/19 09:59 Order name: EKG - Nurse/Tech; Complete Time: 10:08 ms3 08/19 09:59 Order name: IV Saline Lock; Complete Time: 10:22 ms3 08/19 09:59 Order name: Labs collected and sent; Complete Time: 10:22 ms3 08/19 09:59 Order name: O2 Per Protocol; Complete Time: 10:22 ms3 08/19 09:59 Order name: O2 Sat Monitoring; Complete Time: 10:22 ms3 08/19 09:59 Order name: Suicide Screening ([place]); Complete Time: 02:05 ms3 08/19 09:59 Order name: Urine Dipstick-Ancillary (obtain specimen); Complete Time: 22:32 ms3 08/19 10:25 Order name: Liver (Hepatic) Function; Complete Time: 14:24 EDMS 08/19 10:25 Order name: Protime (+INR); Complete Time: 14:24 EDMS 08/19 10:25 Order name: PTT, Activated Partial Thromb; Complete Time: 14:24 EDMS 08/19 10:25 Order name: Salicylates Level; Complete Time: 14:24 EDMS 08/19 22:31 Order name: Urine Dipstick-Ancillary EDMS 08/19 10:29 Order name: Labs - recollect needed: recollect green ,blue and red top; Complete Time: bd 10:58 EC:50 Rate is 113 beats/min. Rhythm is regular. QRS [place] is Normal. [place] interval is normal. ms3 Clinical impression: Sinus tachycardia. Interpreted by me. Reviewed by me. Administered Medications: 10:21 Drug: NS 0.9% 1000 ml Route: IV; Rate: 1000 ml; Site: right antecubital; ph 14:24 Follow up: Response: No adverse reaction; IV Status: Completed infusion; IV Intake: ph 1000ml 12:02 Drug: Zofran (Ondansetron) 2 mg Route: IVP; Site: right antecubital; kr3 14:24 Follow up: Response: No adverse reaction ph 14:23 Drug: NS 0.9% 1000 ml Route: IV; Rate: 125 ml/hr; Site: right antecubital; ph 08/20 02:05 Follow up: IV Status: Completed infusion; IV Intake: 500ml kd3 Disposition Summary: 08/19/22 12:48 Transfer Ordered Transfer Location: Psych Facility ms3 Reason: Higher level of care ms3 Condition: Stable ms3 Problem: new ms3 Symptoms: are unchanged ms3 Accepting Physician: (08/20/22 02:06) [email or web address] Diagnosis - Auditory hallucinations ms3 - Unspecified psychosis not due to a substance or known physiological condition ms3 - Klonopin overdose ms3 Forms: - Medication Reconciliation Form ms3 - SBAR form ms3 Signatures: Dispatcher [employer] EDMS Beatris Mendez, CLINIC SPECIALIST-C CLINIC SPECIALIST-CkRosibel Montiel Roman, MD MD rn Hall, Patricia RN RN Radha Myers, RN RN jl7 George Magdaleno, DO DO ms3 Brigida Elkins RN RN kd3 Celina Raines RN RN kr3 Corrections: (The following items were deleted from the chart) 08/19 10:48 10:29 CBC+H.LAB.BRZ ordered. EDMS EDMS 10:48 10:29 PROTIME (+INR)+COAG.LAB.BRZ ordered. EDMS EDMS 10:48 10:29 PTT, ACTIVATED+COAG.LAB.BRZ ordered. EDMS EDMS 10:49 10:29 ACETAMINOPHEN+C.LAB.BRZ ordered. EDMS EDMS 10:49 10:29 BASIC METABOLIC PANEL+C.LAB.BRZ ordered. EDMS EDMS 10:49 10:29 ETHANOL+C.LAB.BRZ ordered. EDMS EDMS 10:49 10:29 HEPATIC FUNCTION+C.LAB.BRZ ordered. EDMS EDMS 10:49 10:29 SALICYLATE+C.LAB.BRZ ordered. EDMS EDMS 08/20 02:06 08/19 12:48 Dr ms3 kd3
[2022-08-19 22:31] LABS: Urine Blood Negative (Negative); Urine Glucose Negative (Negative); Urine Protein Negative (Negative); Urine Specific Gravity 1.015 (1.005-1.030)
[2022-08-19 23:01] LABS: Barbiturates NEGATIVE (NEGATIVE); Benzodiazepines POSITIVE (NEGATIVE); Cocaine NEGATIVE (NEGATIVE); METHAMPHETAM POSITIVE (NEGATIVE); Methadone NEGATIVE (NEGATIVE); Opiates NEGATIVE (NEGATIVE); Phencyclidine NEGATIVE (NEGATIVE); THC Cannibis POSITIVE (NEGATIVE)
[2022-08-20 03:51] VITALS: TEMP 97.7
[2022-08-20 03:59] VITALS: BP 107/79; O2SAT 96
--- NOTE | 2022-08-21 18:13 | EKG ---
Test Date: 2022-08-19 Test Time: 10:03:42 Low Pressure Boiler Operator: RENNY MEASUREMENT RESULTS: Intervals: Rate: 113 DC: 124 QRSD: 90 QT: 334 QTc: 458 Emeigh: P: 19 DC: 124 QRS: 27 T: 32 INTERPRETIVE STATEMENTS: Sinus tachycardia Otherwise normal ECG Compared to ECG 05/15/2022 21:24:34 ST (T wave) deviation no longer present Possible ischemia no longer present Electronically Signed On 08-21-22 18:11:08 IN STORE MARKETING ASSOCIATE by Felipe Gonzalez
== END 2022-08-20 02:06 ==
LOC: ER 09:51
DX: R44.0 Auditory hallucinations (principal); T42.4X1A Poisoning by benzodiazepines, accidental (unintentional), initial encounter; F31.9 Bipolar disorder, unspecified; Z20.822 Contact with and (suspected) exposure to COVID-19
CPT/HCPCS: 85025; 80048; 36415; 85610; 80076; 85730; 81003; 80307; 87811; J7030; J2405; G0480 ×3; 93005

== ENCOUNTER 2024-08-27 20:23 | Emergency (ER) | payer OTHER ==
[2024-08-27] MEDS ORDERED: ONDANSETRON 4 MG/2 ML VIAL ONE (21:50)
[2024-08-27] MEDS ORDERED: NA CHLORIDE 0.9% 1,000 ML ONE (21:51)
[2024-08-27] MEDS ORDERED: LORazepam 2 MG/ML VIAL ONE (21:51)
[2024-08-27] MEDS ORDERED: THIAMINE 200 MG/2 ML INJ ONE (21:51)
[2024-08-27 22:21] LABS: Albumin 4.2 g/dL (3.4-5.0); Anion Gap 14.1 mEq/L (5.0-15.0); Globulin 4.1 g/dL (2.3-3.5); Potassium 4.1 mEq/L (3.5-5.1); Protein, Total 8.3 g/dL (6.4-8.2)
[2024-08-27 22:26] LABS: Absolute Lymphocytes (CBC) 1.3 K/uL (0.7-4.9); Absolute Monocytes 0.7 K/uL (0.1-1.3); Basophils % 0.4 % (0-1.3); Eosinophils % 0.2 % (0-4.4); Hematocrit 50.1 % (39.6-49.0); Hemoglobin 17.5 g/dL (13.6-17.9); Lymphocytes % 14.5 % (15.3-44.8); MCH 30.8 pg (27.0-35.0); MCHC 34.9 g/dL (32.0-36.0); MCV 88.2 fL (80-100); MPV 8.8 fL (7.6-11.3); Monocytes % 7.5 % (3.3-12.3); Neutrophils % 77.4 % (41.7-73.7); Platelets 278 thou/uL (152-406); RBC Red Blood Cell Count 5.68 M/uL (4.33-5.43); Red Cell Distribution Width 13.4 % (12.1-15.2)
[2024-08-27 22:39] LABS: Barbiturates NEGATIVE (NEGATIVE); Benzodiazepines NEGATIVE (NEGATIVE); Cocaine NEGATIVE (NEGATIVE); METHAMPHETAM NEGATIVE (NEGATIVE); Methadone NEGATIVE (NEGATIVE); Opiates NEGATIVE (NEGATIVE); Phencyclidine NEGATIVE (NEGATIVE); THC Cannibis POSITIVE (NEGATIVE)
--- NOTE | 2024-08-27 22:56 | EDPHYS ---
Physician Documentation [facility] Name: Johann Lopez Age: 34 yrs Sex: Male : 1990 Arrival Date: 08/27/2024 Time: 20:23 Bed 19 Private MD: ED Physician Dawood Merida HPI: 08/27 20:36 This 34 yrs old Male presents to ER via Unassigned with complaints of alcohol sp4 withdrawal . 23:48 34-year-old male presents with complaint of feeling unwell after hard drinking last sp4 night.. Patient reports he had 12 pack of 16 ounce beers.. Historical: - Home Meds: 21:02 bupropion HCl 150 mg Oral Tb24 1 tab once daily [Active]; eszopiclone 2 mg Oral tab ay [Active]; gabapentin 300 mg Oral cap [Active]; prazosin 1 mg Oral cap [Active]; sertraline 50 mg Oral tab [Active]; - PMHx: 21:02 Bipolar disorder; Hypertensive disorder; IV DRUG ABUSE; ay - Immunization history:: Client reports receiving the 1st dose of the Covid vaccine. - Infectious Disease History:: Denies. - Social history:: Smoking status: Patient reports the use of cigarette tobacco products, denies chronic smoking, but will smoke occasionally. - Family history:: not pertinent. ROS: 23:48 Constitutional: Negative for fever, chills, and weight loss, positive palpitations sp4 positive elevated blood pressure positive anxiety 23:48 All other systems are negative, Exam: 23:48 Constitutional: This is a well developed, well nourished patient who is awake, alert, sp4 and in no acute distress. Head/Face: Normocephalic, atraumatic. Eyes: Pupils equal round and reactive to light, extra-ocular motions intact. Lids and lashes normal. Conjunctiva and sclera are not injected. Cornea within normal limits. Periorbital areas with no swelling, redness, or edema. ENT: Nares patent. No nasal discharge, no septal abnormalities noted. Tympanic membranes are normal and external auditory canals are clear. Oropharynx with no redness, swelling, or masses, exudates, or evidence of obstruction, uvula midline. Mucous membranes moist. Neck: Trachea midline, no thyromegaly or masses palpated, and no cervical lymphadenopathy. Supple, full range of motion without nuchal rigidity, or vertebral point tenderness. Chest/axilla: Normal chest wall appearance and motion. Nontender with no deformity. No lesions are appreciated. Cardiovascular: Regular rate and rhythm with a normal S1 and S2. No gallops, murmurs, or rubs. Normal PMI, no JVD. No pulse deficits. Respiratory: Lungs have equal breath sounds bilaterally, clear to auscultation and percussion. No rales, rhonchi or wheezes noted. No increased work of breathing, no retractions or nasal flaring. Abdomen/GI: Soft, with normal bowel sounds. No distension or tympany. No guarding or rebound. No evidence of tenderness throughout. Back: No spinal tenderness. No costovertebral tenderness. Skin: Warm, dry with normal turgor. Normal color with no rashes, no lesions, and no evidence of cellulitis. MS/ Extremity: Pulses equal, no cyanosis. Neurovascular intact. Full, normal range of motion. Neuro: Awake and alert, GCS 15, oriented to person, place, time, and situation. Cranial nerves II-XII grossly intact. Motor strength 5/5 in all extremities. Sensory grossly intact. Psych: Awake, alert, with orientation to person, place and time. Behavior, mood, and affect are within normal limits Vital Signs: 20:24 BP 130 / 93; Pulse 71; Resp 20; Temp 98.5; Pulse Ox 97% on R/A; ay 21:16 BP 143 / 90; Pulse 89; Resp 19; Pulse Ox 95% on R/A; ay 22:00 BP 128 / 77; Pulse 95; Resp 18; Pulse Ox 96% on R/A; ay 22:44 BP 133 / 72; Pulse 84; Resp 17; Pulse Ox 97% on R/A; ay Donya Coma Score: 23:48 Eye Response: spontaneous(4). Motor Response: obeys commands(6). Verbal Response: sp4 oriented(5). Total: 15. MDM: 20:36 Medical Screening Exam initiated sp4 23:49 Differential diagnosis: drug withdrawal. acute psychotic break, depression, psychosis sp4 secondary to non-compliance. Data reviewed: vital signs, nurses notes, EMS record, old medical records, lab test result(s). ED course: Patient significantly improved after IV hydration and IV lorazepam. Stable for discharge home.. 08/27 20:37 Order name: CBC with Diff; Complete Time: 22:34 sp4 08/27 20:37 Order name: CMP; Complete Time: 22:34 sp4 08/27 20:37 Order name: Lipase; Complete Time: 22:34 sp4 08/27 20:50 Order name: Alcohol Level; Complete Time: 22:54 sp4 08/27 20:50 Order name: Urine Drug Screen; Complete Time: 22:54 sp4 08/27 20:37 Order name: IV Saline Lock; Complete Time: 21:44 sp4 08/27 20:37 Order name: Labs collected and sent; Complete Time: 21:44 sp4 Administered Medications: 22:07 Drug: NS 0.9% IV 1000 ml IV at 1 bolus Per protocol; to be given as a bolus over 60 ay minutes Route: IV; Rate: 1 bolus; Site: left hand; 22:48 Follow up: Response: No adverse reaction ay 23:26 Follow up: IV Status: Completed infusion; IV Intake: 1000ml ay 23:30 Follow up: IV Status: Completed infusion; IV Intake: 1000ml ay 22:09 Drug: Thiamine IV 100 mg IV at bolus once Route: IV; Rate: bolus; Site: left hand; ay 22:49 Follow up: Response: No adverse reaction ay 22:10 Drug: Ativan IVP 2 mg IVP once Route: IVP; Site: left hand; ay 22:49 Follow up: Response: No adverse reaction ay 22:10 Drug: Ondansetron IVP 4 mg IVP once; over 2 minutes Route: IVP; Site: left hand; ay 22:49 Follow up: Response: No adverse reaction ay Disposition Summary: 08/27/24 22:55 Discharge Ordered Notes: Location: Home sp4 Problem: new sp4 Symptoms: have improved sp4 Condition: Stable sp4 Diagnosis - Alcohol withdrawal., Alcohol abuse uncomplicated sp4 - 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 EDMS EDMS 20:50 20:50 URINE DRUG SCREEN+UC.LAB.BRZ ordered. EDMS EDMS
--- NOTE | 2024-08-27 22:56 | ER ---
Nurse's Notes [facility] Name: Johann Lopez Age: 34 yrs Sex: Male : 1990 Arrival Date: 08/27/2024 Time: 20:23 Bed 19 Private MD: Diagnosis: Alcohol withdrawal., Alcohol abuse uncomplicated;Alcohol abuse with alcohol induced anxiety disorder Presentation: 08/27 20:24 Chief complaint: EMS states: Anxiety, possible ETOH withdrwal. Coronavirus screen: ay Client denies travel out of the [place] in the last 14 days. Ebola Screen: No symptoms or risks identified at this time. Initial Sepsis Screen: Does the patient meet any 2 criteria? No. Patient's initial sepsis screen is negative. Does the patient have a suspected source of infection? No. Patient's initial sepsis screen is negative. Risk Assessment: Do you want to hurt yourself or someone else? Patient reports no desire to harm self or others. Note Pt BIBA with a c/o anxiety and possible etoh withdrawal. Per EMS, pt was tachy in 110s. Pt alert and oriented, denies SOB, CP, N/V. Onset of symptoms was August 27, 2024. 20:24 Method Of Arrival: EMS: [facility] ay 20:24 Acuity: NEW 3 ay Triage Assessment: 21:02 General: Appears in no apparent distress. comfortable, Behavior is calm, cooperative. ay Pain: Denies pain. EENT: Reports dry throat. Neuro: Level of Consciousness is awake, alert, obeys commands, Oriented to person, place, time, situation, Speech is normal. Cardiovascular: Denies chest pain, Capillary refill < 3 seconds. Respiratory: Airway is patent Respiratory effort is even, unlabored, Respiratory pattern is regular, symmetrical, Denies shortness of breath at rest, on exertion. GI: No signs and/or symptoms were reported involving the gastrointestinal system. : No signs and/or symptoms were reported regarding the genitourinary system. Derm: No signs and/or symptoms reported regarding the dermatologic system. Musculoskeletal: No signs and/or symptoms reported regarding the musculoskeletal system. Historical: - Home Meds: 21:02 bupropion HCl 150 mg Oral Tb24 1 tab once daily [Active]; eszopiclone 2 mg Oral tab ay [Active]; gabapentin 300 mg Oral cap [Active]; prazosin 1 mg Oral cap [Active]; sertraline 50 mg Oral tab [Active]; - PMHx: 21:02 Bipolar disorder; Hypertensive disorder; IV DRUG ABUSE; ay - Immunization history:: Client reports receiving the 1st dose of the Covid vaccine. - Infectious Disease History:: Denies. - Social history:: Smoking status: Patient reports the use of cigarette tobacco products, denies chronic smoking, but will smoke occasionally. - Family history:: not pertinent. Screenin:24 [facility] ED Fall Risk Assessment (Adult) History of falling in the last 3 months, ay including since admission No falls in past 3 months (0 pts) Confusion or Disorientation No (0 pts) Intoxicated or Sedated Yes (3 pts) Impaired Gait No (0 pts) Mobility Assist Device Used No (0 pt) Altered Elimination No (0 pt) Score/Fall Risk Level 3 or more points = High Risk Oriented to surroundings, Maintained a safe environment, Educated pt \T\ family on fall prevention, incl call for assistance when getting out of bed, Assessed \T\ reinforced patient's understanding of fall precautions. Abuse screen: Denies threats or abuse. Nutritional screening: No deficits noted. Tuberculosis screening: No symptoms or risk factors identified. Assessment: 22:49 General: SEE TRIAGE ASSESSMENT. ay Vital Signs: 20:24 BP 130 / 93; Pulse 71; Resp 20; Temp 98.5; Pulse Ox 97% on R/A; ay 21:16 BP 143 / 90; Pulse 89; Resp 19; Pulse Ox 95% on R/A; ay 22:00 BP 128 / 77; Pulse 95; Resp 18; Pulse Ox 96% on R/A; ay 22:44 BP 133 / 72; Pulse 84; Resp 17; Pulse Ox 97% on R/A; ay [place] Coma Score: 23:48 Eye Response: spontaneous(4). Motor Response: obeys commands(6). Verbal Response: sp4 oriented(5). Total: 15. ED Course: 20:24 Inserted saline lock: 22 gauge in left hand, using aseptic technique. ay 20:24 Patient has correct armband on for positive identification. Bed in low position. Call ay light in reach. Side rails up X2. 20:33 Patient arrived in ED. [id number] 20:36 Dawood Merida MD is Attending Physician. sp4 20:47 Vonnie Harding RN is Primary Nurse. ay 21: Triage completed. ay :44 Alcohol Level Sent. ay : Urine Drug Screen Sent. ay : CBC with Diff Sent. ay 21:44 CMP Sent. ay : Lipase Sent. ay 22:55 Jose Antonio Perez MD is Referral Physician. sp4 23:27 IV discontinued, intact, bleeding controlled, No redness/swelling at site. Pressure ay dressing applied. Administered Medications: 22:07 Drug: NS 0.9% IV 1000 ml IV at 1 bolus Per protocol; to be given as a bolus over 60 ay minutes Route: IV; Rate: 1 bolus; Site: left hand; 22:48 Follow up: Response: No adverse reaction ay 23:26 Follow up: IV Status: Completed infusion; IV Intake: 1000ml ay 23:30 Follow up: IV Status: Completed infusion; IV Intake: 1000ml ay 22:09 Drug: Thiamine IV 100 mg IV at bolus once Route: IV; Rate: bolus; Site: left hand; ay 22:49 Follow up: Response: No adverse reaction ay 22:10 Drug: Ativan IVP 2 mg IVP once Route: IVP; Site: left hand; ay 22:49 Follow up: Response: No adverse reaction ay 22:10 Drug: Ondansetron IVP 4 mg IVP once; over 2 minutes Route: IVP; Site: left hand; ay 22:49 Follow up: Response: No adverse reaction ay Intake: 23:26 IV: 1000ml; Total: 1000ml. ay 23:30 IV: 1000ml; Total: 2000ml. ay Outcome: 22:55 Discharge ordered by . sp4 23:27 Discharged to home ambulatory, ay 23:27 Condition: stable 23:27 Discharge instructions given to patient, Instructed on discharge instructions, follow up and referral plans. Demonstrated understanding of instructions, follow-up care, 23:29 Patient left the ED. ay Signatures: Irene [email or web address] Dawood Merida MD MD sp4 Vonnie Harding, RN RN ay
[2024-08-27 23:33] VITALS: TEMP 98.5
[2024-08-27 23:36] VITALS: BP 133/72; O2SAT 97
== END 2024-08-27 23:29 | disposition home or self-care (01) ==
LOC: ER 20:23
DX: F10.139 Alcohol abuse with withdrawal, unspecified (principal); F10.180 Alcohol abuse with alcohol-induced anxiety disorder; I10 Essential (primary) hypertension; F17.210 Nicotine dependence, cigarettes, uncomplicated
CPT/HCPCS: 96361; 85025; 36415; 83690; 80053; 80307; 96375; 96374; 99284; 82077; J3411; J2405; J7030

== ENCOUNTER 2024-12-09 03:19 | Emergency (ER) | payer OTHER ==
--- NOTE | 2024-12-09 03:45 | ER ---
Nurse's Notes [facility] Name: Johann Lopez Age: 34 yrs Sex: Male : 1990 Arrival Date: 12/09/2024 Time: 03:19 Bed 4 Private MD: Maulik Espino Diagnosis: Unspecified contact dermatitis, unspecified cause Presentation: 12/09 03:38 Chief complaint: Patient states: RASH TO RLE AND RIGHT KNEE, BELIEVES IT IS AN STD. br2 Coronavirus screen: Client denies travel out of the [place] in the last 14 days. Ebola Screen: Patient denies exposure to infectious person. Initial Sepsis Screen: Does the patient meet any 2 criteria? HR > 90 bpm. Does the patient have a suspected source of infection? No. Patient's initial sepsis screen is negative. Risk Assessment: Do you want to hurt yourself or someone else? Patient reports no desire to harm self or others. Onset of symptoms was November 25, 2024. 03:38 Method Of Arrival: Ambulatory br2 03:38 Acuity: NEW 3 br2 Historical: - PMHx: 03:42 Bipolar disorder; IV DRUG ABUSE; Hypertensive disorder; br2 - Immunization history:: Adult Immunizations not up to date. - Infectious Disease History:: Denies. - Social history:: Smoking status: Patient reports the use of cigarette tobacco products, Smoking status: Patient reports the use of cigarette tobacco products, smokes 3 packs per day, Patient uses alcohol, occasionally. street drugs, cocaine, heroin, Methamphetamine (Meth). Screenin:37 [facility] ED Fall Risk Assessment (Adult) History of falling in the last 3 months, al5 including since admission No falls in past 3 months (0 pts) Confusion or Disorientation No (0 pts) Intoxicated or Sedated No (0 pts) Impaired Gait No (0 pts) Mobility Assist Device Used No (0 pt) Altered Elimination No (0 pt) Score/Fall Risk Level 0 - 2 = Low Risk Oriented to surroundings, Maintained a safe environment, Hourly rounding (assess needs \T\ fall precautionary measures) done. Abuse screen: Denies threats or abuse. Denies injuries from another. Nutritional screening: No deficits noted. Tuberculosis screening: No symptoms or risk factors identified. Assessment: 03:30 General: Appears uncomfortable, Behavior is cooperative, anxious. Pain: Complains of ha1 pain in left shoulder Pain currently is 7 out of 10 on a pain scale. Neuro: Level of Consciousness is awake, alert, obeys commands, Oriented to person, place, time, situation. Cardiovascular: Capillary refill < 3 seconds Patient's skin is warm and dry. Respiratory: Airway is patent Respiratory effort is even, unlabored, Respiratory pattern is regular, symmetrical. Musculoskeletal: Circulation, motion, and sensation intact. Range of motion: intact in all extremities. 03:30 Derm: Rash noted that is red, raised, on lateral aspect of right knee and right ankle. ha1 04:19 Reassessment: Patient and/or family updated on plan of care and expected duration. Pain ha1 level reassessed. Patient is alert, oriented x 3, equal unlabored respirations, skin warm/dry/pink. Vital Signs: 03:38 BP 146 / 97; Pulse 103; Resp 22; Temp 97.1; Pulse Ox 97% on R/A; Weight 100.7 kg; br2 Height 5 ft. 10 in. ; Pain 0/10; 04:27 BP 144 / 91; Pulse 98; Resp 18 S; Pulse Ox 99% on R/A; ha1 03:38 Body Mass Index 31.85 (100.70 kg, 177.8 cm) br2 03:38 Pain Scale: Adult br2 ED Course: 03:22 Patient arrived in ED. gm2 03:23 Maulik Espino MD is Private Physician. gm2 03:24 Sarah Cuellar MD is Attending Physician. gb1 03:37 Adriana Garzon RN is Primary Nurse. al5 03:37 Patient has correct armband on for positive identification. Bed in low position. Call al5 light in reach. Side rails up X 1. Provided Education on: plan of care. 03:37 No provider procedures requiring assistance completed. al5 03:42 Triage completed. br2 04:26 Patient did not have IV access during this emergency room visit. ha1 04:27 Arm band placed on right wrist. ha1 Administered Medications: 03:55 Drug: Ketorolac IM 60 mg IM once Route: IM; Site: right deltoid; ha1 04:25 Follow up: Response: No adverse reaction; Pain is decreased ha1 Medication: 03:37 VIS not applicable for this client. al5 Outcome: 03:45 Discharge ordered by . lainey 04:25 Condition: stable ha1 04:26 Discharged to home ambulatory, ha1 04:26 Discharge instructions given to patient, Instructed on discharge instructions, follow up and referral plans. medication usage, Demonstrated understanding of instructions, follow-up care, medications, Prescriptions given X 1, 04:27 Patient left the ED. ha1 Signatures: Malathi Hernandez RN RN ha1 Sarah Cuellar MD MD gb1 Negar Trejo 2 Adriana Garzon RN RN al5 Kaila Ellis RN RN br2 Corrections: (The following items were deleted from the chart) 04:26 04:26 Discharge instructions given to patient, Instructed on discharge instructions, ha1 follow up and referral plans. medication usage, Demonstrated understanding of instructions, follow-up care, medications, ha1
--- NOTE | 2024-12-09 03:45 | EDPHYS ---
Physician Documentation [facility] Name: Johann Lopez Age: 34 yrs Sex: Male : 1990 Arrival Date: 12/09/2024 Time: 03:19 Bed 4 Private MD: Maulik Espino ED Physician AlisaSarah HPI: 12/09 03:46 This 34 yrs old Male presents to ER via Ambulatory with complaints of Feet gb1 Swelling, Rash, Palpitations, Shoulder Pain. 03:46 Patient with a rash on his right lower extremity and itchy right upper and right upper gb1 and left upper extremities. Patient does admit to IV drug abuse as well as cocaine abuse. He has a history of bipolar disorder and hypertension. Patient states that the rashes been there for 2 to 3 days and is itchy. He denies any mucous membrane involvement. He denies any fever or chills.. Historical: - PMHx: 03:42 Bipolar disorder; IV DRUG ABUSE; Hypertensive disorder; br2 - Immunization history:: Adult Immunizations not up to date. - Infectious Disease History:: Denies. - Social history:: Smoking status: Patient reports the use of cigarette tobacco products, Smoking status: Patient reports the use of cigarette tobacco products, smokes 3 packs per day, Patient uses alcohol, occasionally. street drugs, cocaine, heroin, Methamphetamine (Meth). Exam: 03:46 Constitutional: This is a well developed, well nourished patient who is awake, alert, gb1 and in no acute distress. Head/Face: Normocephalic, atraumatic. Eyes: Pupils equal round and reactive to light, extra-ocular motions intact. Lids and lashes normal. Conjunctiva and sclera are non-icteric and not injected. Cornea within normal limits. Periorbital areas with no swelling, redness, or edema. ENT: Nares patent. No nasal discharge, no septal abnormalities noted. Tympanic membranes are normal and external auditory canals are clear. Oropharynx with no redness, swelling, or masses, exudates, or evidence of obstruction, uvula midline. Mucous membranes moist. Neck: Trachea midline, no thyromegaly or masses palpated, and no cervical lymphadenopathy. Supple, full range of motion without nuchal rigidity, or vertebral point tenderness. No Meningismus. Chest/axilla: Normal chest wall appearance and motion. Nontender with no deformity. No lesions are appreciated. Cardiovascular: Regular rate and rhythm with a normal S1 and S2. No gallops, murmurs, or rubs. Normal PMI, no JVD. No pulse deficits. Abdomen/GI: Soft, non-tender, with normal bowel sounds. No distension or tympany. No guarding or rebound. No evidence of tenderness throughout. Back: No spinal tenderness. No costovertebral tenderness. Full range of motion. Skin: Warm, dry with normal turgor. Normal color with no rashes, no lesions, and no evidence of cellulitis. Vital Signs: 03:38 BP 146 / 97; Pulse 103; Resp 22; Temp 97.1; Pulse Ox 97% on R/A; Weight 100.7 kg; br2 Height 5 ft. 10 in. ; Pain 0/10; 04:27 BP 144 / 91; Pulse 98; Resp 18 S; Pulse Ox 99% on R/A; ha1 03:38 Body Mass Index 31.85 (100.70 kg, 177.8 cm) br2 03:38 Pain Scale: Adult br2 MDM: 03:25 Medical Screening Exam initiated gb1 Administered Medications: 03:55 Drug: Ketorolac IM 60 mg IM once Route: IM; Site: right deltoid; ha1 04:25 Follow up: Response: No adverse reaction; Pain is decreased ha1 Disposition Summary: 12/09/24 03:45 Discharge Ordered Notes: Location: Home gb1 Condition: Stable gb1 Diagnosis - Unspecified contact dermatitis, unspecified cause gb1 Followup: gb1 - With: Private Physician - When: - Reason: Recheck today's complaints Discharge Instructions: - Discharge Summary Sheet gb1 - Contact Dermatitis gb1 Forms: - Medication Reconciliation Form gb1 - Antibiotic Education gb1 - Prescription Opioid Use gb1 - Patient Portal Instructions gb1 - Leadership Thank You Letter gb1 Prescriptions: - Doxycycline Monohydrate 100 mg Oral Tablet - take 1 tablet ORAL route every 12 hours for 10 days; 20 tablet; Refills: 0, gb1 Product Selection Permitted Signatures: Malathi Hernandez RN RN ha1 Sarah Cuellar MD MD gb1 Kaila Ellis RN RN br2
[2024-12-09] MEDS ORDERED: KETOROLAC 30 MG/ML INJ ONE (03:58)
[2024-12-09 04:35] VITALS: TEMP 97.1
[2024-12-09 04:37] VITALS: BP 144/91; O2SAT 99
== END 2024-12-09 04:27 | disposition home or self-care (01) ==
LOC: ER 03:19
DX: L25.9 Unspecified contact dermatitis, unspecified cause (principal); Z72.0 Tobacco use
CPT/HCPCS: 96372; 99284

== ENCOUNTER 2024-12-09 07:29 | Emergency (ER) | payer OTHER ==
[2024-12-09] MEDS ORDERED: LORazepam 2 MG/ML VIAL ONE (08:18)
[2024-12-09 08:28] LABS: Absolute Eosinophils 0.2 K/uL (0-0.5); Absolute Lymphocytes (CBC) 2.4 K/uL (0.7-4.9); Absolute Monocytes 0.7 K/uL (0.1-1.3); Absolute Neutrophil 6.5 K/uL (1.8-8.0); Basophils % 0.4 % (0-1.3); Hematocrit 42.8 % (39.6-49.0); Hemoglobin 15.1 g/dL (13.6-17.9); Lymphocytes % 24.8 % (15.3-44.8); MCH 30.8 pg (27.0-35.0); MCHC 35.3 g/dL (32.0-36.0); MCV 87.1 fL (80-100); MPV 8.1 fL (7.6-11.3); Monocytes % 6.9 % (3.3-12.3); Neutrophils % 65.9 % (41.7-73.7); Platelets 267 thou/uL (152-406); RBC Red Blood Cell Count 4.91 M/uL (4.33-5.43); Red Cell Distribution Width 12.5 % (12.1-15.2)
[2024-12-09 08:47] LABS: Albumin 3.7 g/dL (3.4-5.0); Albumin/Globulin Ratio 1.1 (1.1-1.8); Anion Gap 11.3 mEq/L (5.0-15.0); Bilirubin Direct 0.2 mg/dL (0-0.2); Bilirubin Indirect, Calculated 0.6 mg/dL (0.2-0.8); Bilirubin Total 0.8 mg/dL (0.2-1.0); Globulin 3.4 g/dL (2.3-3.5); Potassium 3.3 mEq/L (3.5-5.1); Protein, Total 7.1 g/dL (6.4-8.2); Troponin High Sensitivity 4.8 pg/mL (<58.9)
--- NOTE | 2024-12-09 08:52 | RAD REPORT ---
EXAMINATION: ONE VIEW CHEST XR CLINICAL INDICATION: Male, 34 years old.,CHEST PAIN TECHNIQUE: Frontal chest projection is submitted. Examination is limited by patient positioning and t echnique. COMPARISON: 05/14/2022 FINDINGS: The lungs are grossly clear although suboptimal inspiratory effort somewhat limits evaluation. No pn eumothorax or sizable effusion. The heart is normal in size. Mediastinal contours are unremarkable. IMPRESSION: No acute intrathoracic abnormalities.
--- NOTE | 2024-12-09 09:07 | EDPHYS ---
Physician Documentation [facility] Name: Johann Lopez Age: 34 yrs Sex: Male : 1990 Arrival Date: 12/09/2024 Time: 07:29 Bed 14 Private MD: ED Physician Isaac Sam HPI: 12/09 08:00 This 34 yrs old Male presents to ER via Ambulatory with complaints of Chest Pain, rt Breathing Difficulty. 08:00 Patient was seen in the ED for a rash, was prescribed doxycycline. The patient reports rt that since then he has developed a left-sided chest pain, shortness of breath, palpitations for the past 4 hours. Denies other acute complaints at this time, symptoms are moderate severity, no other aggravating alleviating factors.. Historical: - Allergies: 07:46 No Known Allergies; hb - Home Meds: 07:46 bupropion HCl 150 mg Oral Tb24 1 tab once daily [Active]; eszopiclone 2 mg Oral tab hb [Active]; gabapentin 300 mg Oral cap [Active]; prazosin 1 mg Oral cap [Active]; sertraline 50 mg Oral tab [Active]; - PMHx: 07:46 Hypertensive disorder; IV DRUG ABUSE; Bipolar disorder; hb - Immunization history:: Adult Immunizations up to date. - Infectious Disease History:: Denies. - Social history:: Smoking status: Patient reports the use of cigarette tobacco products. - Family history:: not pertinent. ROS: 08:00 Constitutional: Negative for fever, chills, and weight loss, Abdomen/GI: Negative for rt abdominal pain, nausea, vomiting, diarrhea, and constipation, MS/Extremity: Negative for injury and deformity, 08:00 Cardiovascular: Positive for chest pain, palpitations, Negative for edema, 08:00 Respiratory: Positive for cough, shortness of breath, 08:00 Skin: Positive for rash, Exam: 08:00 Constitutional: This is a well developed, well nourished patient who is awake, alert, rt and in no acute distress. Head/Face: Normocephalic, atraumatic. Chest/axilla: Normal chest wall appearance and motion. Nontender with no deformity. No lesions are appreciated. Cardiovascular: Regular rate and rhythm with a normal S1 and S2. No gallops, murmurs, or rubs. Normal PMI, no JVD. No pulse deficits. Respiratory: Lungs have equal breath sounds bilaterally, clear to auscultation and percussion. No rales, rhonchi or wheezes noted. No increased work of breathing, no retractions or nasal flaring. Abdomen/GI: Soft, non-tender, with normal bowel sounds. No distension or tympany. No guarding or rebound. No evidence of tenderness throughout. MS/ Extremity: Pulses equal, no cyanosis. Neurovascular intact. Full, normal range of motion. Neuro: Awake and alert, GCS 15, oriented to person, place, time, and situation. Cranial nerves II-XII grossly intact. Motor strength 5/5 in all extremities. Sensory grossly intact. Cerebellar exam normal. Normal gait. 08:00 Skin: Rash consistent with dermatitis on bilateral legs. 08:17 ECG was reviewed by the Attending Physician. rt Vital Signs: 07:45 BP 156 / 100; Pulse 93; Resp 18; Temp 98.3; Pulse Ox 100% on R/A; Pain 0/10; hb 08:22 BP 140 / 94; Pulse 84; Resp 15; Pulse Ox 100% ; jl7 09:00 BP 137 / 98; Pulse 92; Resp 15; Pulse Ox 100% ; Pain 0/10; jl7 07:45 Pain Scale: Adult hb 09:00 Pain Scale: Adult jl7 MDM: 07:44 Medical Screening Exam initiated rt 14:42 Differential diagnosis: Anxiety disorder, drug-induced, pneumonia, CHF, ACS. HEART rt Score: History: Slightly Suspicious (0), ECG: Normal (0), Age: < or = 45 years (0), Risk Factors: 1 or 2 risk factors (1), Troponin: < or = 1 x Normal Limit (0), Total Score = 1. Data reviewed: vital signs, nurses notes, lab test result(s), EKG, radiologic studies. Consideration of Admission/Observation Escalation of care including admission/observation considered. I considered the following discharge prescriptions or medication management in the emergency department Medications were administered in the Emergency Department. See MAR. Independent interpretation of the following test(s) in the Emergency Department X-Ray: My interpretation is No infiltrate seen on interpretation of x-ray images. Care significantly affected by the following chronic conditions: Hypertension. Care significantly affected by the following Social Determinants of Health: Misuse of alcohol and/or drugs. Counseling: I had a detailed discussion with the patient and/or guardian regarding the historical points, exam findings, and any diagnostic results supporting the discharge/admit diagnosis, lab results, radiology results. Response to treatment: the patient's symptoms have markedly improved after treatment. 12/09 07:52 Order name: Basic Metabolic Panel; Complete Time: 08:51 rt 12/09 07:52 Order name: CBC with Diff; Complete Time: 08:51 rt 12/09 07:52 Order name: LFT's; Complete Time: 08:51 rt 12/09 07:52 Order name: Troponin HS; Complete Time: 08:51 rt 12/09 07:52 Order name: XRAY Chest (1 view); Complete Time: 09:02 rt 12/09 07:52 Order name: Cardiac monitoring; Complete Time: 08:22 rt 12/09 07:52 Order name: EKG - Nurse/Tech; Complete Time: 08:22 rt 12/09 07:52 Order name: IV Saline Lock; Complete Time: 08:22 rt 12/09 07:52 Order name: Labs collected and sent; Complete Time: 08:22 rt 12/09 07:52 Order name: O2 Per Protocol; Complete Time: 08:22 rt 12/09 07:52 Order name: O2 Sat Monitoring; Complete Time: 08:22 rt EC:17 Rate is 85 beats/min. Rhythm is regular, Normal Sinus Rhythm with No ectopy. QRS [place] rt is Normal. UT interval is normal. QRS interval is normal. QT interval is normal. No Q waves. T waves are Normal. No ST changes noted. Interpreted by me. Administered Medications: 08:22 Drug: Ativan IVP 1 mg IVP once Route: IVP; Site: right forearm; jl7 Disposition Summary: 12/09/24 09:06 Discharge Ordered Notes: Location: Home rt Problem: new rt Symptoms: have improved rt Condition: Stable rt Diagnosis - Chest pain, unspecified rt Followup: rt - With: Private Physician - When: 2 - 3 days - Reason: Discharge Instructions: - Discharge Summary Sheet rt - Nonspecific Chest Pain, Adult rt Forms: - Medication Reconciliation Form rt - Antibiotic Education rt - Prescription Opioid Use rt - Patient Portal Instructions rt - Leadership Thank You Letter rt Signatures: Dispatcher [facility]HoAl[facility] HospitalSharon Mary RN RN hb Leal, Jahala, RN RN jl7 Isaac Sam MD MD rt Corrections: (The following items were deleted from the chart) 07:50 07:46 Home Meds: gabapentin 300 mg Oral cap; hb hb 07:53 07:52 BASIC METABOLIC PANEL+C.LAB.BRZ ordered. EDMS EDMS : 07:52 CBC+H.LAB.BRZ ordered. EDMS EDMS : 07:52 HEPATIC FUNCTION+C.LAB.BRZ ordered. EDMS EDMS 07:52 Troponin High Sensitivity+C.LAB.BRZ ordered. EDMS EDMS 07:53 07:53 Chest Single View+RAD.RAD.BRZ ordered. EDMS EDMS
--- NOTE | 2024-12-09 09:07 | ER ---
Nurse's Notes [facility] Name: Johann Lopez Age: 34 yrs Sex: Male : 1990 Arrival Date: 12/09/2024 Time: 07:29 Bed 14 Private MD: Diagnosis: Chest pain, unspecified Presentation: 12/09 07:45 Chief complaint: Patient states: "I was here 3 hours ago for this rash and it is not hb better, I have this pain in my neck and chest when I feel like I am going to cough for the last 4 hours." Denies chest pain or SOB at this time. Coronavirus screen: At this time, the client does not indicate any symptoms associated with coronavirus-19. Ebola Screen: No symptoms or risks identified at this time. Initial Sepsis Screen: Does the patient meet any 2 criteria? No. Patient's initial sepsis screen is negative. Does the patient have a suspected source of infection? No. Patient's initial sepsis screen is negative. Risk Assessment: Do you want to hurt yourself or someone else? Patient reports no desire to harm self or others. Onset of symptoms was December 09, 2024. 07:45 Method Of Arrival: Ambulatory hb 07:45 Acuity: NEW 3 hb Triage Assessment: 07:50 General: Appears in no apparent distress. Behavior is cooperative, anxious. Pain: hb Denies pain. Neuro: Level of Consciousness is awake, alert, obeys commands, Oriented to person, place, time, situation. Cardiovascular: Reports Patient's skin is warm and dry. Rhythm is sinus tachycardia. Historical: - Allergies: 07:46 No Known Allergies; hb - Home Meds: 07:46 bupropion HCl 150 mg Oral Tb24 1 tab once daily [Active]; eszopiclone 2 mg Oral tab hb [Active]; gabapentin 300 mg Oral cap [Active]; prazosin 1 mg Oral cap [Active]; sertraline 50 mg Oral tab [Active]; - PMHx: 07:46 Hypertensive disorder; IV DRUG ABUSE; Bipolar disorder; hb - Immunization history:: Adult Immunizations up to date. - Infectious Disease History:: Denies. - Social history:: Smoking status: Patient reports the use of cigarette tobacco products. - Family history:: not pertinent. Screenin:22 [facility] ED Fall Risk Assessment (Adult) History of falling in the last 3 months, jl7 including since admission No falls in past 3 months (0 pts) Confusion or Disorientation No (0 pts) Intoxicated or Sedated No (0 pts) Impaired Gait No (0 pts) Mobility Assist Device Used No (0 pt) Altered Elimination No (0 pt) Score/Fall Risk Level 0 - 2 = Low Risk Oriented to surroundings, Maintained a safe environment. Abuse screen: Denies threats or abuse. Denies injuries from another. Nutritional screening: No deficits noted. Tuberculosis screening: No symptoms or risk factors identified. Assessment: 08:22 General: Appears in no apparent distress. uncomfortable, Behavior is cooperative, jl7 anxious, restless. Pain: Complains of pain in anterior aspect of left upper chest Pain does not radiate. Pain currently is 0 out of 10 on a pain scale. Pain began gradually. Neuro: Level of Consciousness is awake, alert, obeys commands, Oriented to person, place, time, situation. Cardiovascular: Heart tones S1 S2 present Patient's skin is warm and dry. Respiratory: Airway is patent Respiratory effort is even, unlabored, Respiratory pattern is regular, symmetrical, Breath sounds are clear bilaterally. Derm: Skin is pink, warm \\T\\ dry. Vital Signs: 07:45 BP 156 / 100; Pulse 93; Resp 18; Temp 98.3; Pulse Ox 100% on R/A; Pain 0/10; hb 08:22 BP 140 / 94; Pulse 84; Resp 15; Pulse Ox 100% ; jl7 09:00 BP 137 / 98; Pulse 92; Resp 15; Pulse Ox 100% ; Pain 0/10; jl7 07:45 Pain Scale: Adult hb 09:00 Pain Scale: Adult jl7 ED Course: 07:30 Patient arrived in ED. mr 07:32 Isaac Sam MD is Attending Physician. rt 07:46 Triage completed. hb 07:50 Arm band placed on. hb 08:00 Initial lab(s) drawn, by me, sent to lab. EKG done, by ED staff, reviewed by Isaac Sam MD. Inserted saline lock: 20 gauge in right forearm, using aseptic technique. Blood collected. Flushed with 10 mL NS. 08:00 Patient maintains SpO2 saturation greater than 95% on room air. jl7 08:21 XRAY Chest (1 view) In Process Unspecified. EDMS 08:22 Radha Mcfadden, RN is Primary Nurse. jl7 08:22 Patient has correct armband on for positive identification. Placed in gown. Bed in low jl7 position. Call light in reach. Side rails up X 1. Provided Education on: use of call bertrand. Client placed on continuous cardiac and pulse oximetry monitoring. NIBP monitoring applied. night monitor on. Pulse ox on. 09:00 No provider procedures requiring assistance completed. IV discontinued, intact, jl7 bleeding controlled, No redness/swelling at site. Pressure dressing applied. Administered Medications: 08: Drug: Ativan IVP 1 mg IVP once Route: IVP; Site: right forearm; jl7 Medication: 08: VIS not applicable for this client. jl7 Outcome: 09:06 Discharge ordered by . rt 09:10 Discharged to home ambulatory, jl7 09:10 Condition: stable 09:10 Discharge instructions given to patient, Instructed on discharge instructions, follow up and referral plans. Demonstrated understanding of instructions, follow-up care, 09:33 Patient left the ED. jl7 Signatures: Dispatcher [employer] [facility] Obdulia Finnegan, Reg Reg mr Sharon Machado, RN RN hb Radha Mcfadden, RN RN jl7 Isaac Sam MD MD rt Corrections: (The following items were deleted from the chart) 07:50 07:46 Home Meds: gabapentin 300 mg Oral cap; hb hb
[2024-12-09 09:47] VITALS: TEMP 98.3; O2SAT 100
[2024-12-09 09:58] VITALS: BP 137/98
--- NOTE | 2024-12-12 16:52 | EKG ---
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
== END 2024-12-09 09:33 | disposition home or self-care (01) ==
LOC: ER 07:29
DX: R07.9 Chest pain, unspecified (principal); R00.2 Palpitations; R05.9 Cough, unspecified; I10 Essential (primary) hypertension; F31.9 Bipolar disorder, unspecified; Z72.0 Tobacco use
CPT/HCPCS: 36415; 71045; 80048; 80076; 84484; 85025; 93005; 96374; 99285